=== PATIENT | female | born 1950 | race Caucasian/White ===

== ENCOUNTER 2020-05-15 12:50 | Outpatient (CLI) | payer OTHER, SELFPAY ==
--- NOTE | ~2020-05-15 | DEXA_ITS ---
Bone Density Report Name: Kia Chung Age: 70 Sex: Female Ethnicity: White Date of : 1950 Indication: osteopenia; prior fracture; Referring Provider: ROGELIO RUVALCABA Study: Bone densitometry was performed. Exam Date: May 15, 2020 Accession number: [id number] Bone Density: Region BMD T-score Z-score Classification AP Spine (L1-L4) 0.768 -2.5 -0.3 Osteoporosis Femoral Neck (Left) 0.606 -2.2 -0.3 Osteopenia Total Hip (Left) 0.815 -1.0 0.6 Normal Total Hip Bilateral Avg 0.792 -1.2 0.4 Osteopenia Femoral Neck (Right) 0.581 -2.4 -0.5 Osteopenia Total Hip (Right) 0.768 -1.4 0.2 Osteopenia World Health Organization criteria for BMD impression classify patients as: Normal (T-score at or above -1.0), Osteopenia (T-score between -1.0 and -2.5), or Osteoporosis (T-score at or below -2.5). 10-year Fracture Risk: FRAX not reported because: Some T-score for Spine Total or Hip Total or Femoral Neck at or below -2.5 Previous Exams: Region Exam Age BMD T-score BMD Change BMD Change Date g/cm2 vs Baseline vs Previous AP Spine(L1-L4) 05/15/2020 70 0.768 -2.5 -0.014(-1.8%)# -0.014(-1.8%)# 09/14/2012 62 0.782 -2.4 Total Hip(Left) 05/15/2020 70 0.815 -1.0 -0.091(-10.1%) -0.091(-10.1%) 09/14/2012 62 0.907 -0.3 Total Hip(Right) 05/15/2020 70 0.768 -1.4 -0.039(-4.9%)# -0.039(-4.9%)# 09/14/2012 62 0.808 -1.1 *Denotes significance at 95% confidence level, LSC for AP Spine = 0.022 g/cm2, LSC for Total Hip = 0.027 g/cm2 Clinical Information Provided by Patient: Has had a low trauma fracture Patient maximum height was 59 Menopause Age: 50 No regular weight bearing exercise Drinks caffeinated beverages Onset of menses at age 11 Number of children 3 Impression: The patient has established osteoporosis, based on the Total Spine T-score and the existence of a prior fracture. The patient has risk factors, including: previous fracture. No significant bone loss was observed. Discussion: HIGH RISK OF FRACTURE. BONE DENSITY IS UNDESIRABLY LOW AT ONE OR MORE SKELETAL SITES, CONSISTENT WITH POSTMENOPAUSAL OSTEOPOROSIS. This patient's lowest T-score, in a patient who has previously fractured, meets the World Health Organization's (WHO) criteria for severe osteoporosis. In untreated patients, the risk of osteoporotic fracture increases approximately two-fold for each 1.0 SD decrease in T-score. Low bone density is not the only risk factor for fracture
--- NOTE | ~2020-05-15 | MM_ITS ---
EXAMINATION: MM screening jacek BI w milton HISTORY: Screening mammogram TECHNIQUE: Craniocaudal and mediolateral oblique 3-D tomosynthesis images were obtained and synthetic 2-D images were generated. CAD analysis was submitted and interpreted. COMPARISON: 01/30/2015 bilateral digital screening mammogram BREAST PARENCHYMAL COMPOSITION: There are scattered areas of fibroglandular density. FINDINGS: Subtle new very small irregular opacity in the posterior lower inner quadrant of the left b reast. Diagnostic left mammogram is recommended, with ultrasound if required. Otherwise there is no evidence of suspicious mass, calcification, or architectural distortion to sugg est malignancy in either breast. There has been no other suspicious interval change. IMPRESSION: 1. Subtle small new irregular opacity in the posterior lower inner left breast 2. Diagnostic left mammogram is recommended, with ultrasound if required BI-RADS Category 0: Incomplete: Needs additional imaging evaluation. Reviewed, dictated and finalized at location A. SETTER
== END 2020-05-15 12:51 | disposition home or self-care (01) ==
LOC: ANHIMG 12:53
PROVIDERS: PCP Internal Medicine; Visit Provider Internal Medicine
DX: Z12.31 Encounter for screening mammogram for malignant neoplasm of breast (principal); Z78.0 Asymptomatic menopausal state; R92.8 Other abnormal and inconclusive findings on diagnostic imaging of breast; M85.852 Other specified disorders of bone density and structure, left thigh; M85.851 Other specified disorders of bone density and structure, right thigh
CPT/HCPCS: 77063; 77067; 77080

== ENCOUNTER 2020-06-14 11:11 | Outpatient (CLI) | payer OTHER, SELFPAY ==
--- NOTE | ~2020-06-14 | MMUS_ITS ---
EXAMINATION: MM diagnostic mammo unilat LT, US breast LT limited HISTORY: Follow-up left breast asymmetry TECHNIQUE: Additional 3-D tomosynthesis images of the left breast were performed and synthetic 2-D im ages were generated. CAD analysis was submitted and interpreted. High resolution Limited left breast ultrasound was performed. COMPARISON: Comparison to multiple prior studies sequentially, with oldest reviewed study dated 08/2012. BREAST PARENCHYMAL COMPOSITION: Breast composition is almost entirely fatty. FINDINGS: MAMMOGRAPHIC FINDINGS: There is a stable focal asymmetry in the lower inner quadrant of the left breast which was likely pre sent on prior examinations dating back to 2012. ULTRASOUND: Limited left breast ultrasound: At 9:00 there is a 1 cm lipoma located superficially. At 9:00,, 8 cm from the nipple, there is a 6 mm lipoma. No suspicious masses to suggest malignancy. IMPRESSION: 1. No evidence for malignancy in the left breast. Benign findings. 2. Routine yearly screening mammogram and regular clinical breast examination are recommended. BI-RADS Category 2: Benign finding(s). Reviewed, dictated and finalized at location A. NHOUSE INSTRUCTOR IMPRESSION: 1. No evidence for malignancy in the left breast. Benign findings. 2. Routine yearly screening mammogram and regular clinical breast examination a re recommended. BI-RADS Category 2: Benign finding(s).
== END 2020-06-14 11:12 | disposition home or self-care (01) ==
LOC: ANHIMG 11:20
PROVIDERS: PCP Internal Medicine; Visit Provider Internal Medicine
DX: R92.8 Other abnormal and inconclusive findings on diagnostic imaging of breast (principal)
CPT/HCPCS: 76642; 77065

== ENCOUNTER 2020-10-31 01:26 | Day surgery (SDC) | payer OTHER, SELFPAY ==
[2020-10-17 11:06] VITALS: BMI 33.0
[2020-10-31 06:41] VITALS: BP 144/89; PULSE 100; RESP 20; TEMP 36.3; O2SAT 94
[2020-10-31] MEDS: LACTATED RINGERS 1,000 ML 150 ML IV CONT (06:51)
--- NOTE | 2020-10-31 06:55 | WPDANESEPPF ---
Anes - Initial Pre Proc Eval Procedure: Operation Date: 10/31/20 08:00 Proposed Procedures p Colonoscopy - Parish Cole MD Date/Time: 10/31/20 06:55 Surgeon: Parish Cole MD Pre Op Diagnosis: melena Patient Data Age: 70 Gender: F Height: 1.49 m Weight: 69.4 kg Last Vital Signs Temp 36.3 C L 10/31/20 06:41 Pulse 100 10/31/20 06:41 Resp 20 10/31/20 06:41 BP 144/89 H 10/31/20 06:41 Pulse Ox 94 10/31/20 06:41 Allergies Allergy/AdvReac Type Severity Reaction Status Date / Time chlorpromazine Allergy Unknown Other Verified 10/31/20 06:39 CHLORPROMAZINE HCL AdvReac Unknown CAUSED Uncoded 10/31/20 06:39 CHEMICAL HEPATITIS Home Medications Medication Instructions Recorded Confirmed Type rosuvastatin 20 mg tablet 20 mg PO DAILY #90 tablet 09/23/19 10/17/20 Rx levothyroxine 88 mcg tablet 88 mcg PO DAILY #90 tablet 11/13/19 10/17/20 Rx lisinopril 10 mg tablet 10 mg PO DAILY #90 tablet 12/13/19 10/17/20 Rx clonazepam 0.5 mg tablet 0.5 mg PO TID tablet 12/25/19 10/17/20 History doxepin 10 mg capsule 10 mg PO .bedtime cap 12/25/19 10/17/20 History olanzapine 10 mg tablet 10 mg PO DAILY 12/25/19 10/17/20 History gemfibrozil 600 mg tablet 600 mg PO BID #180 tablet 03/22/20 10/17/20 Rx Patient hx anesthesia problems: none Family hx anesthesia problems: none PMFSH Past Medical History Medical History Benign essential hypertension Bipolar I disorder, most recent episode (or current) manic Hypothyroidism (acquired) Mixed hyperlipidemia Family History Family History Father Acute myocardial infarction Mother Acute myocardial infarction Social History Social History Smoking status: Former smoker Second hand tobacco smoke exposure: No Smoking end date: 04/12/09 Alcohol intake: never Substance use type: does not use Gender identity (if verbalized by the patient): Female Anes - Eval Final PreProcedure Day of Procedure 10/31/20 06:55 Patient weight: obese Heart: regular rate and rhythm Lungs: clear to auscultation Airway: Mallampati scale class II Neurological: other (alert) Last oral intake: >/= 8 hours ASA classification: III Emergent: no Anesthetic plan: proceed Anesthesia type and monitoring: general GIVS and standard monitoring Informed Consent: The patient's anesthetic plan and its attendant risks and benefits were discussed with the patient/family/POA. Questions were solicited and answers provided to the satisfaction of the patient/family/POA.
--- NOTE | 2020-10-31 07:18 | PM.HPGS ---
History of Present Illness History of Present Illness Consent: Risks, benefits, and alternatives have been discussed and questions answered. Patient agrees to proceed with procedure. Chief complaint: melena Narrative: Kia Chung is a 70 year old female who was found to have a positive stool Hemoccult. Review of Systems Review of Systems: All systems reviewed & are unremarkable except as noted in HPI and below PMFSH Past Medical History Medical History Benign essential hypertension Bipolar I disorder, most recent episode (or current) manic Hypothyroidism (acquired) Mixed hyperlipidemia Family History Family History Father Acute myocardial infarction Mother Acute myocardial infarction Social History Social History Smoking status: Former smoker Second hand tobacco smoke exposure: No Smoking end date: 04/12/09 Alcohol intake: never Substance use type: does not use Gender identity (if verbalized by the patient): Female Meds Home Medications and Allergies Home Medications Medication Instructions Recorded Confirmed Type rosuvastatin 20 mg tablet 20 mg PO DAILY #90 tablet 09/23/19 10/17/20 Rx levothyroxine 88 mcg tablet 88 mcg PO DAILY #90 tablet 11/13/19 10/17/20 Rx lisinopril 10 mg tablet 10 mg PO DAILY #90 tablet 12/13/19 10/17/20 Rx clonazepam 0.5 mg tablet 0.5 mg PO TID tablet 12/25/19 10/17/20 History doxepin 10 mg capsule 10 mg PO .bedtime cap 12/25/19 10/17/20 History olanzapine 10 mg tablet 10 mg PO DAILY 12/25/19 10/17/20 History gemfibrozil 600 mg tablet 600 mg PO BID #180 tablet 03/22/20 10/17/20 Rx Allergies Allergy/AdvReac Type Severity Reaction Status Date / Time chlorpromazine Allergy Unknown Other Verified 10/31/20 06:39 CHLORPROMAZINE HCL AdvReac Unknown CAUSED Uncoded 10/31/20 06:39 CHEMICAL HEPATITIS Vital Signs Vital Signs - 24 hr 10/31/20 06:41 Temperature 36.3 C L Pulse Rate 100 Respiratory Rate 20 Blood Pressure 144/89 H Pulse Oximetry 94 Exam Resp: Auscultation: clear to auscultation bilaterally Cardio: Rate: regular rate Rhythm: regular rhythm GI: GI Palp: Yes Soft to palpation and No Tenderness to palpation present (GI) Assessment and Plan Assessment and plan (1) Blood in stool: Code(s): K92.1 - Melena Status: Acute Assessment and Plan: Colonoscopy with possible biopsy or polypectomy or cautery or injection of substances.
[2020-10-31 08:27] VITALS: BP 81/46; PULSE 81; RESP 14; O2SAT 95
[2020-10-31 08:37] VITALS: BP 103/65; PULSE 97; RESP 18; O2SAT 96
[2020-10-31 08:47] VITALS: BP 120/74; PULSE 73; RESP 16; O2SAT 97
== END 2020-10-31 09:00 | disposition home or self-care (01) ==
PROVIDERS: PCP Internal Medicine; Visit Provider Internal Medicine Gastroenterology
PROC: 0DJD8ZZ Inspection of Lower Intestinal Tract, Via Natural or Artificial Opening Endoscopic (ICD-10-PCS; CPT 45378; principal; 2020-10-31 08:00)
DX: R19.5 Other fecal abnormalities (principal); K57.30 Diverticulosis of large intestine without perforation or abscess without bleeding; K63.5 Polyp of colon; K64.8 Other hemorrhoids; I10 Essential (primary) hypertension; E78.2 Mixed hyperlipidemia; E03.9 Hypothyroidism, unspecified; F31.9 Bipolar disorder, unspecified; Z87.891 Personal history of nicotine dependence; E66.9 Obesity, unspecified; Z68.31 Body mass index [BMI] 31.0-31.9, adult
CPT/HCPCS: 45381; 45385; 88305; J2001; J2704; J7120

== ENCOUNTER 2022-08-06 09:31 | Outpatient (CLI) | payer OTHER, SELFPAY ==
--- NOTE | ~2022-08-06 | MM_ITS ---
EXAMINATION: MM screening jacek BI w milton HISTORY: Screening mammogram TECHNIQUE: Craniocaudal and mediolateral oblique 3-D tomosynthesis images were obtained and synthetic 2-D images were generated. CAD analysis was submitted and interpreted. COMPARISON: 06/14/2020 diagnostic left mammogram and limited left breast ultrasound 05/15/2020, 01/30/2015 bilateral screening mammogram examinations BREAST PARENCHYMAL COMPOSITION: The breasts are almost entirely fatty. FINDINGS: Occasional bilateral benign calcifications. Bilateral benign-appearing axillary tail lymph nodes. There is no evidence of suspicious stable mild fibroglandular asymmetry. Mass, calcification, or architectural distortion to suggest malignancy in either breast. There has been no suspicious inte rval change. IMPRESSION: 1. No mammographic evidence of malignancy. 2. Recommend routine screening mammography in one year. BI-RADS Category 2: Benign finding(s). Reviewed, dictated and finalized at location A.
== END 2022-08-06 09:32 | disposition home or self-care (01) ==
LOC: ANHIMG 09:34
PROVIDERS: PCP Family Medicine; Visit Provider Family Medicine
DX: Z12.31 Encounter for screening mammogram for malignant neoplasm of breast (principal)
CPT/HCPCS: 77063; 77067

== ENCOUNTER 2022-08-11 08:07 | Outpatient (CLI) | payer OTHER, SELFPAY ==
[2022-08-11 19:34] LABS: Alanine Aminotransferase 37 U/L (6-35); Alkaline Phosphatase 93 U/L (38-126); Anion Gap 5 mmol/L (8-16); Aspartate Amino Transferase 38 U/L (14-36); Bilirubin,Total 0.6 mg/dL (0.2-1.3); Blood Urea Nitrogen 20 mg/dL (7-17); Calcium 8.9 mg/dL (8.4-10.2); Carbon Dioxide 31 mmol/L (22-30); Chloride 101 mmol/L (98-107); Cholesterol 158 mg/dL (0-200); Estimated Glomerular Filt Rate > 60; Glucose 99 mg/dL (65-110); HDL Direct 35 mg/dL; Potassium 3.9 mmol/L (3.4-5.0); Sodium 137 mmol/L (137-145); Triglycerides 165 mg/dL (<150)
[2022-08-11 19:46] LABS: LDL Cholesterol Direct 87 mg/dL
== END 2022-08-11 08:08 | disposition home or self-care (01) ==
LOC: ANHGOSHLAB 08:09
PROVIDERS: PCP Family Medicine; Visit Provider Family Medicine
DX: E03.9 Hypothyroidism, unspecified (principal); E78.2 Mixed hyperlipidemia; I10 Essential (primary) hypertension
CPT/HCPCS: 36415; 80053; 80061; 84443

== ENCOUNTER 2022-09-11 14:12 | Outpatient (CLI) | payer OTHER, SELFPAY ==
--- NOTE | ~2022-09-11 | DEXA_ITS ---
Bone Density Report Name: BOB ZULETA Age: 72 Sex: Female Ethnicity: White Date of : 1950 Indication: postmenopausal osteoporosis; monitoring treatment; Referring Provider: TEMO MENDOZA Study: Bone densitometry was performed. Exam Date: September 11, 2022 Accession number: [id number] Bone Density: Region BMD T-score Z-score Classification AP Spine(L1-L4) 0.801 -2.2 0.1 Osteopenia Femoral Neck (Left) 0.642 -1.9 0.2 Osteopenia Total Hip (Left) 0.850 -0.8 1.0 Normal Femoral Neck (Right) 0.579 -2.4 -0.4 Osteopenia Total Hip (Right) 0.780 -1.3 0.4 Osteopenia Total Hip Mean 0.815 -1.1 0.7 Osteopenia World Health Organization criteria for BMD impression classify patients as: Normal (T-score at or above -1.0), Osteopenia (T-score between -1.0 and -2.5), or Osteoporosis (T-score at or below -2.5). 10-year Fracture Risk: FRAX not reported because: Treated for osteoporosis Previous Exams: Region Exam Age BMD T-score BMD Change BMD Change Date g/cm2 vs Baseline vs Previous AP Spine (L1-L4) 09/11/2022 72 0.801 -2.2 0.034 (4.4%)* 0.034 (4.4%)* 05/15/2020 70 0.768 -2.5 Total Hip(Left) 09/11/2022 72 0.850 -0.8 0.035 (4.2%)* 0.035 (4.2%)* 05/15/2020 70 0.815 -1.0 Total Hip(Right) 09/11/2022 72 0.780 -1.3 0.011 (1.5%) 0.011 (1.5%) 05/15/2020 70 0.768 -1.4 *Denotes significance at 95% confidence level, LSC for AP Spine = 0.022 g/cm2, LSC for Total Hip = 0.027 g/cm2 Clinical Information Provided by Patient: Is being treated for osteoporosis Has used the following medications: Fosamax (i.e. alendronate) Patient maximum height was 59 Menopause Age: 50 No regular weight bearing exercise Drinks caffeinated beverages Onset of menses at age 11 Number of children 3 Impression: The patient has low bone mass, based on the Right Femoral Neck T-score. No significant bone loss was observed. Discussion: PATIENT UNDER TREATMENT WITH NO SIGNIFICANT BMD LOSS SINCE LAST EXAM. In an untreated patient, BMD typically declines with age. A lack of decline or gain is usually a sign that treatment is efficacious and fracture risk is reduced. It is important to ask patients whether they are taking their medications and to encourage continued and appropriate compliance with their osteoporosis therapies to reduce fracture risk. It is also important to review their risk factors and encourage appropriate calcium and vitamin D intakes, exerci
== END 2022-09-11 14:13 | disposition home or self-care (01) ==
LOC: ANHIMG 14:13
PROVIDERS: PCP Family Medicine; Visit Provider Family Medicine
DX: M81.0 Age-related osteoporosis without current pathological fracture (principal); M85.88 Other specified disorders of bone density and structure, other site; M85.852 Other specified disorders of bone density and structure, left thigh; M85.851 Other specified disorders of bone density and structure, right thigh
CPT/HCPCS: 77080

== ENCOUNTER 2023-10-11 14:46 | Outpatient (CLI) | payer OTHER, SELFPAY ==
--- NOTE | ~2023-10-11 | MM_ITS ---
EXAMINATION: MM screening jacek BI w milton HISTORY: Screening mammogram TECHNIQUE: Craniocaudal and mediolateral oblique 3-D tomosynthesis images were obtained and synthetic 2-D images were generated. CAD analysis was submitted and interpreted. COMPARISON: 08/06/2022, 05/15/2020 BREAST PARENCHYMAL COMPOSITION:Not Dense. The breasts are almost entirely fatty FINDINGS: No suspicious mass, calcification, or architectural distortion are identified in either marty ast to suggest malignancy. There has been no suspicious interval change. IMPRESSION: No mammographic evidence of malignancy. Recommend routine screening mammography in one year. BI-RADS Category 1: Negative Reviewed, dictated and finalized at location .
== END 2023-10-11 14:47 | disposition home or self-care (01) ==
LOC: ANHIMG 14:47
PROVIDERS: PCP Family Medicine; Visit Provider Family Medicine
DX: Z12.31 Encounter for screening mammogram for malignant neoplasm of breast (principal)
CPT/HCPCS: 77063; 77067

== ENCOUNTER 2023-11-15 07:59 | Outpatient (CLI) | payer OTHER, SELFPAY ==
[2023-11-15 11:50] LABS: Alanine Aminotransferase 59 U/L (6-35); Albumin Level 3.9 g/dL (3.5-5.1); Alkaline Phosphatase 156 U/L (38-126); Anion Gap 11 mmol/L (4-12); Aspartate Amino Transferase 53 U/L (14-36); Bilirubin,Total 0.4 mg/dL (0.2-1.3); Blood Urea Nitrogen 13 mg/dL (7-17); Calcium 9.2 mg/dL (8.4-10.2); Carbon Dioxide 29 mmol/L (22-30); Chloride 100 mmol/L (98-107); Cholesterol 168 mg/dL (0-200); Estimated Glomerular Filt Rate > 60; Glucose 101 mg/dL (65-110); HDL Direct 40 mg/dL; Potassium 3.1 mmol/L (3.4-5.0); Sodium 140 mmol/L (137-145); Triglycerides 188 mg/dL (<150)
[2023-11-15 12:01] LABS: LDL Cholesterol Direct 97 mg/dL
[2023-11-15 12:23] LABS: Free T4 Free Thyroxine 0.99 ng/mL (0.78-2.19)
== END 2023-11-15 08:00 | disposition home or self-care (01) ==
LOC: ANHGOSHLAB 08:01
PROVIDERS: PCP Family Medicine; Visit Provider Family Medicine
DX: E66.09 Other obesity due to excess calories (principal); Z13.220 Encounter for screening for lipoid disorders; Z13.228 Encounter for screening for other metabolic disorders; Z68.32 Body mass index [BMI] 32.0-32.9, adult; R73.09 Other abnormal glucose; E03.9 Hypothyroidism, unspecified
CPT/HCPCS: 36415; 80053; 80061; 83036; 84439; 84443

== ENCOUNTER 2023-12-17 09:38 | Outpatient (CLI) | payer OTHER, SELFPAY ==
[2023-12-17 15:17] LABS: Anion Gap 8 mmol/L (4-12); Blood Urea Nitrogen 16 mg/dL (7-17); Calcium 8.9 mg/dL (8.4-10.2); Carbon Dioxide 27 mmol/L (22-30); Chloride 103 mmol/L (98-107); Estimated Glomerular Filt Rate > 60; Glucose 121 mg/dL (65-110); Potassium 4.3 mmol/L (3.4-5.0); Sodium 138 mmol/L (137-145)
== END 2023-12-17 09:39 | disposition home or self-care (01) ==
LOC: ANHGOSHLAB 09:39
PROVIDERS: PCP Family Medicine; Visit Provider Family Medicine
DX: Z13.228 Encounter for screening for other metabolic disorders (principal)
CPT/HCPCS: 36415; 80048

== ENCOUNTER 2024-03-28 11:08 | Outpatient (CLI) | payer OTHER, SELFPAY ==
[2024-03-28 13:58] LABS: Alanine Aminotransferase 81 U/L (6-35); Alkaline Phosphatase 215 U/L (38-126); Anion Gap 4 mmol/L (4-12); Aspartate Amino Transferase 70 U/L (14-36); Bilirubin,Total 0.6 mg/dL (0.2-1.3); Blood Urea Nitrogen 16 mg/dL (7-17); Calcium 9.3 mg/dL (8.4-10.2); Carbon Dioxide 31 mmol/L (22-30); Chloride 102 mmol/L (98-107); Estimated Glomerular Filt Rate > 60; Glucose 133 mg/dL (65-110); Potassium 3.7 mmol/L (3.4-5.0); Sodium 137 mmol/L (137-145)
== END 2024-03-28 11:09 | disposition home or self-care (01) ==
LOC: ANHGOSHLAB 11:09
PROVIDERS: PCP Family Medicine; Visit Provider Family Medicine
DX: Z13.228 Encounter for screening for other metabolic disorders (principal)
CPT/HCPCS: 36415; 80053

== ENCOUNTER 2024-03-29 10:43 | Outpatient (CLI) | payer OTHER, SELFPAY ==
[2024-03-30 07:47] LABS: GGT 129 U/L (3-65)
== END 2024-03-29 10:44 | disposition home or self-care (01) ==
LOC: ANHGOSHLAB 10:44
PROVIDERS: PCP Family Medicine; Visit Provider Family Medicine
DX: R74.01 Elevation of levels of liver transaminase levels (principal)
CPT/HCPCS: 36415; 82977

== ENCOUNTER 2024-04-14 08:11 | Outpatient (CLI) | payer OTHER, SELFPAY ==
--- NOTE | ~2024-04-14 | US_ITS ---
EXAMINATION: US abdomen limited DATE: 04/14/2024 09:02 INDICATION: Elevated levels of liver transaminase levels TECHNIQUE: Multiple grayscale and Doppler ultrasound images of the abdomen were obtained. COMPARISON: None FINDINGS: The pancreatic head and body are normal in appearance. The pancreatic tail is not visualized. Proxim al aorta and inferior vena cava are normal. Liver has normal echogenicity and contour, with a smooth surface. No liver lesion identified. No intrahepatic biliary duct dilation suspected. Portal venous f low was seen in the hepatopetal, normal direction and has normal Doppler waveform. There are 2 large hyperechoic and shadowing gallstones in the otherwise normal-appearing gallbladder. Common bile duct measures 3 mm diameter which is normal. Sonographic Freedman sign was reported as negative by the sonog rapher. IMPRESSION: 1. Cholelithiasis without findings of acute cholecystitis nor intra/extrahepatic biliary ductal dilat ion. Reviewed, dictated and finalized at location B. GER GYN IMPRESSION: 1. Cholelithiasis without findings of acute cholecystitis nor intra/extrahepati c biliary ductal dilation.
== END 2024-04-14 08:12 | disposition home or self-care (01) ==
PROVIDERS: PCP Family Medicine; Visit Provider Family Medicine
DX: R74.01 Elevation of levels of liver transaminase levels (principal); K80.20 Calculus of gallbladder without cholecystitis without obstruction
CPT/HCPCS: 76705

== ENCOUNTER 2024-04-17 20:10 | Observation (INO) | payer OTHER, SELFPAY ==
--- NOTE | ~2024-04-17 | XR_ITS ---
CHEST RADIOGRAPH CLINICAL HISTORY: Weakness . COMPARISON: None available TECHNIQUE: Single portable view of the chest. FINDINGS The cardiomediastinal silhouette is unremarkable. Increased interstitial markings are identified bilaterally, findings suggesting mild pulmonary vascul ar congestion. The lungs are otherwise clear. Visualized osseous structures and soft tissues are unremarkable. IMPRESSION: Mild pulmonary vascular congestion, without focal infiltrate or effusion. Reviewed, dictated and finalized at location A. MIDWIFE
--- NOTE | ~2024-04-17 | CT_ITS ---
History: Blunt trauma PROCEDURE: CT cervical spine without intravenous contrast. COMPARISON: None TECHNIQUE: Multiple contiguous axial images of the cervical spine were performed without the administration of i ntravenous contrast. DLP: 484 mGy-cm FINDINGS: Straightening and slight reversal of the normal curvature of the cervical spine is identified, likely muscular in origin. No acute fractures are present. Severe degenerative disease is identified within the cervical spine with osteophyte formation, disc s pace narrowing, facet arthropathy and endplate changes. 9 mm soft tissue attenuation nodule within the right middle lobe, incompletely evaluated on the curre nt study for which noncontrast CT examination of the chest is recommended for further evaluation. The remainder of the visualized portions of the bilateral upper lung perla are unremarkable. No soft tissue abnormality is present. The airway is patent. Impression: Straightening and slight reversal of the normal curvature of the cervical spine, likely muscular in o rigin. Degenerative disease without acute fracture. 9 mm soft tissue attenuation nodule within the right middle lobe, incompletely evaluated on the curre nt study for which noncontrast CT examination of the chest is recommended for further evaluation. Reviewed, dictated and finalized at location A. TEGIC ADVISOR Impression: Straightening and slight reversal of the normal curvature of the cervical spine , likely muscular in origin. Degenerative disease without acute fracture. 9 mm soft tissue attenuation nodule within the right middle lobe, incompletely evaluated on the current study for which noncontrast CT examination of the ches t is recommended for further evaluation.
--- NOTE | ~2024-04-17 | CT_ITS ---
CT Scan of the Chest without Contrast: Clinical Indication: Pulmonary nodule Technique: Contiguous sections were acquired throughout the chest without intravenous contrast. Dose reduction technique was used on this scan by utilizing automated exposure control and iterative recon struction technique. The dose-length product (DLP) was 286.49 mGy-cm. Findings: There is no evidence of any significant mediastinal, hilar or axillary lymphadenopathy. The mediastin al soft tissues appear normal. There is no evidence of pleural or pericardial effusion. There is a 12 mm peripheral right upper lobe pulmonary nodule (axial image 47). There are several tin y 1-2 mm peripheral right upper lobe pulmonary nodules. Images through the upper abdomen reveal cholelithiasis. Impression: 12 mm right upper lobe pulmonary nodule, indeterminate. Early neoplasm not excluded. Consider PET/CT or tissue sampling for further evaluation, versus short-term follow-up CT in 1-3 months. Comparison w ith any prior outside chest CTs to assess for chronicity of this nodule would be extremely useful, if available. Reviewed, dictated and finalized at location . ANGE TROUBLE SHOOTER Impression: 12 mm right upper lobe pulmonary nodule, indeterminate. Early neoplasm not excl uded. Consider PET/CT or tissue sampling for further evaluation, versus short-t erm follow-up CT in 1-3 months. Comparison with any prior outside chest CTs to assess for chronicity of this nodule would be extremely useful, if available.
--- NOTE | ~2024-04-17 | CT_ITS ---
History: Blunt trauma PROCEDURE: CT head without contrast. COMPARISON: None TECHNIQUE: Axial imaging of the head performed from the skull base to the vertex without IV contrast. Sagittal a nd coronal reformations obtained. DLP: 605 mGy-cm FINDINGS: The ventricles are enlarged. The dilatation of the ventricles is proportional to the degree of sulcal prominence, not uncommon in the senescent brain. Decreased attenuation is identified within the periventricular white matter, likely secondary to micr ovascular ischemic disease, in a patient of this age. There is no mass, mass effect or midline shift. There is no abnormal extra-axial fluid collection or intracranial hemorrhage. Visualized paranasal sinuses are clear. The mastoid air cells are well aerated. No acute displaced fractures within the overlying cranium. Impression: No acute intracranial hemorrhage or suspicious mass effect. Reviewed, dictated and finalized at location A. NILE OFFICER Impression: No acute intracranial hemorrhage or suspicious mass effect.
[2024-04-17 20:26] VITALS: BP 143/80; PULSE 104; RESP 17; TEMP 36.4; O2SAT 97
--- NOTE | 2024-04-17 20:32 | ECG_ITS ---
Test Date: 2024-04-18 02:16:27 Measurements Intervals [place] Rate: 97 P: 23 AR: 190 QRS: -54 QRSD: 104 T: 119 QT: 381 QTc: 485 Interpretive Statements SINUS RHYTHM LEFT ANTERIOR FASCICULAR BLOCK [QRS AXIS <= -45, QR IN I, RS IN II] MODERATE T-WAVE ABNORMALITY, CONSIDER LATERAL ISCHEMIA [-0.1+ mV T-WAVE IN I/aVL/V5/V6] No previous ECG available for comparison Electronically Signed On 04-19-2024 17:21:31 STEM ROLLER OPERATOR by Earle Jefferson M.D.
[2024-04-17 22:46] VITALS: BP 158/80; PULSE 92; RESP 15; O2SAT 98
[2024-04-17 23:30] LABS: Basophils Percent Auto 0.2 % (0.2-1.2); Eosinophils Percent Auto 0.3 % (0-4.4); Hematocrit 41.3 % (37.0-47.0); Hemoglobin 14.6 g/dL (12.0-15.0); Immature Granulocyte Absolute 0.05 K/mm3 (0.00-0.031); Immature Granulocyte Percent A 0.4 % (0-0.5); Lymphocytes Absolute Auto 1.78 K/mm3 (0.9-3.2); Lymphocytes Percent Auto 14.4 % (18.3-44.2); Mean Corpuscular HGB Conc 35.4 g/dl (32-36); Mean Corpuscular Hemoglobin 30.3 pg (26-34); Mean Corpuscular Volume 85.7 fl (80-100); Mean Platelet Volume 11.9 fl (7.4-10.4); Monocytes Percent Auto 7.8 % (2.6-8.5); Neutrophils Absolute Auto 9.5 K/mm3 (1.3-6.7); Neutrophils Percent Auto 76.9 % (45.5-73.1); Platelet Count Result 280 k/mm3 (150-375); Red Blood Count 4.82 M/mm3 (4.2-5.4); White Blood Count 12.4 K/mm3 (4.5-10.0)
--- NOTE | 2024-04-17 23:32 | ED.GENADULT ---
HPI - General Adult General Chief complaint: Altered Mental Status Stated complaint: Possible Overdose Time Seen by Provider: 04/17/24 22:42 History of Present Illness HPI narrative: Patient is a 73-year-old female who presents emergency department with chief complaint of possible overdose. 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 Patient reports that she has had multiple falls and EMS has been out of her house multiple times and police have been out of her house multiple times per the family the patient has had overdoses before in the past and report that when she is suicidal the patient will usually express thoughts of harming herself and the vocal about at patient today denies any suicidal thoughts reports he was just trying to get some sleep Related Data Home Medications ?Medication ?Instructions ?Recorded ?Confirmed ?Last Taken ?Type clonazepam 0.5 mg tablet (Klonopin) 0.5 mg PO TID 12/25/19 03/28/24 10/30/20 History olanzapine 10 mg tablet 10 mg PO DAILY 12/25/19 03/28/24 10/30/20 History buspirone 10 mg tablet 10 mg PO BID 09/24/23 03/28/24 Unknown History trazodone 50 mg tablet 25 mg PO QHS PRN 03/28/24 03/28/24 Unknown History Allergies Allergy/AdvReac Type Severity Reaction Status Date / Time CHLORPROMAZINE HCL AdvReac Unknown CAUSED Uncoded 03/28/24 11:12 CHEMICAL HEPATITIS Review of Systems Review of Systems: A 10 system review of systems was completed on the patient and is negative except for what is stated in the HPI. Nursing and ancillary documentation was reviewed. FORMERLY [facility], [facility] Past Medical History Medical History Transaminitis Benign essential hypertension Bipolar I disorder, most recent episode (or current) manic Hypothyroidism (acquired) Mixed hyperlipidemia Family History Family History Father Acute myocardial infarction Mother Acute myocardial infarction Social History Social History Social History: Caffeine-half calf coffee Smoking status: Former smoker Second hand tobacco smoke exposure: No Smoking end date: 04/12/09 Alcohol intake: never Substance use: never Substance use type: does not use Lack of Transportation: No Lack of Food: Never True Current Housing: I Have Housing Concerned About Future Housing: No Difficulty Paying Gas/Electric Bills: No Difficulty Paying for Meds: No Currently Unemployed: No Education: Decline to Answer Difficulty w/ Childcare or Family Care: No Gender identity (if verbalized by the patient): Female Exam Narrative: GENERAL: Well-appearing, well-nourished, and in no acute distress. HEAD: Normocephalic, atraumatic. EYES: PERRLA and EOMI. ENT: Nares clear, no rhinorrhea or epistaxis. Mucous membranes moist. NECK: Supple. CHEST: Clear to auscultation. No respiratory distress. HEART: Regular rate and rhythm. No murmur heard. Normal peripheral pulses. ABDOMEN: Soft, nontender, nondistended, normal active bowel sounds. EXTREMITIES: Normal range of motion. No edema. SKIN: Warm, dry, no rash. NEURO: No focal deficits. Alert and oriented x3. Unsteady on her gait PSYCH: Normal mood and affect. Course Vital Signs Vital signs: Vital Signs Temperature 36.4 C 04/17/24 20:26 Pulse Rate 104 H 04/17/24 20:26 Respiratory Rate 17 04/17/24 20:26 Blood Pressure 143/80 H 04/17/24 20:26 Pulse Oximetry 97 04/17/24 20:26 Oxygen Delivery Room Air 04/17/24 20:26 Temperature 36.4 C 04/17/24 20:26 Pulse Rate 92 04/17/24 22:46 Respiratory Rate 15 04/17/24 22:46 Blood Pressure 158/80 H 04/17/24 22:46 Pulse Oximetry 98 04/17/24 22:46 Oxygen Delivery Room Air 04/17/24 20:26 Medical Decision Making Vital Signs Vital Signs: Vital Signs Temperature 36.4 C 04/17/24 20:26 Pulse Rate 104 H 04/17/24 20:26 Respiratory Rate 17 04/17/24 20:26 Blood Pressure 143/80 H 04/17/24 20:26 Pulse Oximetry 97 04/17/24 20:26 Oxygen Delivery Room Air 04/17/24 20:26 Temperature 36.4 C 04/17/24 20:26 Pulse Rate 92 04/17/24 22:46 Respiratory Rate 15 04/17/24 22:46 Blood Pressure 158/80 H 04/17/24 22:46 Pulse Oximetry 98 04/17/24 22:46 Oxygen Delivery Room Air 04/17/24 20:26 Lab Data 04/17/24 23:13 04/17/24 23:13 Labs: Lab Results 04/17/24 Range/Units 23:13 WBC 12.4 H (4.5-10.0) K/mm3 RBC 4.82 (4.2-5.4) M/mm3 Hgb 14.6 (12.0-15.0) g/dL Hct 41.3 (37.0-47.0) % MCV 85.7 (80-100) fl MCH 30.3 (26-34) pg MCHC 35.4 (32-36) g/dl RDW 13.0 (11.5-14.5) % Plt Count 280 (150-375) k/mm3 MPV 11.9 H (7.4-10.4) fl Immature Gran % (Auto) 0.4 (0-0.5) % Neut % (Auto) 76.9 H (45.5-73.1) % Lymph % (Auto) 14.4 L (18.3-44.2) % Bucks % (Auto) 7.8 (2.6-8.5) % Eos % (Auto) 0.3 (0-4.4) % Baso % (Auto) 0.2 (0.2-1.2) % Lymph # (Auto) 1.78 (0.9-3.2) K/mm3 Bucks # (Auto) 1.0 H (0.1-0.6) K/mm3 Eos # (Auto) 0.0 (0-0.3) K/mm3 Baso # (Auto) 0.0 (0.0-0.1) K/mm3 Abs Immat Gran (auto) 0.05 H (0.00-0.031) K/mm3 Absolute Neuts (auto) 9.5 H (1.3-6.7) K/mm3 Absolute Nucleated RBC 0.000 (0.0-0.012) K/mm3 Nucleated RBC % 0.0 (0.0-0.2) % PT 13.6 (11.1-14.7) Seconds INR 1.0 APTT 26.3 (22.3-36.8) Seconds Sodium 137 (137-145) mmol/L Potassium 3.0 L (3.4-5.0) mmol/L Chloride 103 (98-107) mmol/L Carbon Dioxide 28 (22-30) mmol/L Anion Gap 6 (4-12) mmol/L BUN 12 (7-17) mg/dL Creatinine 0.65 L (0.7-1.0) mg/dL Estim Creat Clear Calc Not Reportable Estimated GFR > 60 (59 - ) Glucose 110 (65-110) mg/dL Lactic Acid 1.3 (0.7-2.0) mmol/L Calcium 9.3 (8.4-10.2) mg/dL Magnesium 2.0 (1.6-2.3) mg/dL Total Bilirubin 0.6 (0.2-1.3) mg/dL AST 41 H (14-36) U/L ALT 48 H (6-35) U/L Alkaline Phosphatase 206 H (38-126) U/L Ammonia < 9 L (9-30) umol/L Troponin I 0.140 H* (0.000-0.034) ng/mL Total Protein 7.0 (6.3-8.2) g/dL Albumin 3.8 (3.5-5.1) g/dL Lipase 35 (23-300) U/L Procalcitonin 0.1 ng/mL TSH 0.200 L (0.465-4.680) uIU/mL Urine Color Yellow (Yellow) Urine Appearance Clear (Clear) Urine pH 6.0 (5.0-9.0) Ur Specific [place] 1.009 (1.001-1.035) Urine Protein 1+ H (Negative) mg/dL Urine Glucose (UA) Negative (Negative) mg/dL Urine Ketones Negative (Negative) mg/dL Ur Blood (Man) Trace (Negative) Urine Nitrate Negative (Negative) Urine Bilirubin Negative (Negative) Urine Urobilinogen 1.0 (<2.0) mg/dL Leukocyte Esterase Rfl Negative (Negative) SARA/UL Urine RBC 0-2 (0-2) /hpf Urine WBC 0-5 (0-3) /hpf Ur Squamous Epith Cells None seen (Few) /hpf Urine Bacteria None seen /hpf Urine Casts 0-2 Salicylates < 1.0 L (2-20) mg/dL Urine Opiates Screen Negative (Negative) Urine Methadone Screen Negative (Negative) Acetaminophen < 10 L (10-30) ug/mL Ur Barbiturates Screen Negative (Negative) Ur Phencyclidine Scrn Negative (Negative) Ur Amphetamine Screen Negative (Negative) U Benzodiazepines Scrn Negative (Negative) Urine Cocaine Screen Negative (Negative) U Cannabinoids Screen Negative (Negative) Ethyl Alcohol < 10 (<10) mg/dL Influenza A (RT-PCR) Negative (Negative) Influenza B (RT-PCR) Negative (Negative) RSV (RT-PCR) Negative (Negative) SARS-CoV-2 RNA (RT-PCR) Negative (Negative) Critical Care Time Critical Care Time Critical Care Time: Yes Total Critical Care Time: 30 Discharge Plan Discharge Clinical Impression: Falls frequently, Accidental overdose, Elevated troponin Patient Disposition: Still a Patient Condition: Stable Patient Language: Latvian Prescriptions: No Action trazodone 50 mg tablet 25 mg PO QHS PRN clonazepam [Klonopin] 0.5 mg tablet 0.5 mg PO TID olanzapine 10 mg tablet 10 mg PO DAILY buspirone 10 mg tablet 10 mg PO BID rosuvastatin 20 mg tablet 20 mg PO DAILY Qty: 90 1RF lisinopril 10 mg tablet 10 mg PO DAILY Qty: 90 1RF levothyroxine 88 mcg tablet 88 mcg PO DAILY Qty: 90 1RF Follow-up/Referrals: Flaco Berg DO [Primary Care Provider] - Time of Disposition: 02:24
[2024-04-17 23:35] LABS: Add Urine Microscopic? YES; Appearance Urine Clear (Clear); Bacteria Urine None Seen /hpf; Bilirubin Urine Negative (Negative); Blood Urine Trace (Negative); Color Urine Yellow (Yellow); Glucose Urine UA Negative (Negative); Ketones Urine Negative (Negative); Leukocyte Esterase Ur Negative LEU/UL (Negative); Nitrate Urine Negative (Negative); Non Pathogenic Casts 0-2; Protein Urine 1+ mg/dL (Negative); RBC Urine 0-2 /hpf (0-2); Specific Grav Ur 1.009 (1.001-1.035); Squamous Epithelial Cell Urine None Seen /hpf (Few); WBC Urine 0-5 /hpf (0-3)
[2024-04-17 23:39] LABS: Acetaminophen < 10 ug/mL (10-30); Ammonia < 9 umol/L (9-30); Ethanol < 10 mg/dL (<10); Lactic Acid Reflex 1.3 mmol/L (0.7-2.0); Salicylate < 1.0 mg/dL (2-20)
[2024-04-17 23:40] LABS: Alanine Aminotransferase 48 U/L (6-35); Albumin Level 3.8 g/dL (3.5-5.1); Alkaline Phosphatase 206 U/L (38-126); Anion Gap 6 mmol/L (4-12); Aspartate Amino Transferase 41 U/L (14-36); Bilirubin,Total 0.6 mg/dL (0.2-1.3); Blood Urea Nitrogen 12 mg/dL (7-17); Calcium 9.3 mg/dL (8.4-10.2); Carbon Dioxide 28 mmol/L (22-30); Chloride 103 mmol/L (98-107); Estimated Glomerular Filt Rate > 60; Glucose 110 mg/dL (65-110); Lipase 35 U/L (23-300); Sodium 137 mmol/L (137-145)
[2024-04-17 23:42] LABS: Prothrombin Time 13.6 Seconds (11.1-14.7)
[2024-04-17 23:43] LABS: Partial Thromboplastin Time 26.3 Seconds (22.3-36.8)
[2024-04-17 23:49] LABS: Amphetamine Screen Urine Negative (Negative); Barbiturate Screen Urine Negative (Negative); Benzodiazepines Screen Urine Negative (Negative); Cannabinoid Screen Urine Negative (Negative); Cocaine Screen Urine Negative (Negative); Methadone Screen Urine Negative (Negative); Opiate Screen Urine Negative (Negative); Phencyclidine Screen Urine Negative (Negative)
[2024-04-18] VITALS (16 sets, daily range): BP systolic 97–170; BP diastolic 50–79; PULSE 69–110; RESP 14–24; TEMP 36.3–37.3; O2SAT 93–100; BMI 26.1
[2024-04-18 00:06] LABS: Influenza A QL RT-PCR Negative (Negative); Influenza B QL RT-PCR Negative (Negative); RSV RNA, RT-PCR Negative (Negative); SARS-CoV-2 RNA PCR Negative (Negative)
[2024-04-18 00:28] LABS: Procalcitonin 0.1 ng/mL
[2024-04-18] MEDS: ASPIRIN 81 MG CHEWABLE TABLET 324 MG PO (01:39)
[2024-04-18 02:49] LABS: Troponin I 0.141 ng/mL (0.000-0.034)
--- NOTE | 2024-04-18 03:37 | ADMGEN ---
This patient, Kia Chung, was admitted to IMU Room 232-01 at 0336. Patient/family oriented to hospital policies and general routines including ID bracelet, bed and alarms, visiting hours, pain management, procedures, bathroom and other care routines, personal items, smoking policy, room service/diet, and visiting hours. Information on how to activate the Rapid Response Team has been discussed. Patient/Family are encouraged to report perceived risks to care and to ask questions if they do not understand what they are told or what they should do.
--- NOTE | 2024-04-18 07:11 | PC.NURSE ---
daughterMelissa, advised this RN during admission that the patient runs out of her medications before refills are due and will then stay awake for days. Patient is always up and moving at home, drinks a lot of coffee from morning through night. Patient continued to ask and try to get up from the bed every few minutes during the admit process. Although oriented now, patient is very impulsive and a high fall risk having frequent falls recently - patient lives alone and is normally independent with ambulation. Patient's daughter is POA but may be unreliable to get ahold of. Gloria Torres's information was added to the chart for contact. Patient has a history of suicide attempt, the patient's mother and the patient's other daughter also committed suicide.
[2024-04-18] MEDS: ASPIRIN 81 MG CHEWABLE TABLET PO (08:54)
[2024-04-18 09:14] LABS: Creatine Kinase 421 U/L (30-135)
[2024-04-18 09:24] LABS: Troponin I 0.123 ng/mL (0.000-0.034)
--- NOTE | 2024-04-18 13:30 | P.HP_ITS ---
H&P: HPI History of Present Illness Date/Time: 04/18/24 13:30 Chief Complaint: altered mental status Narrative: Interval history: This is a 73-year-old female with a significant past medical history of hypothyroidism, hyperlipidemia, bipolar 1 disorder, hypertension, transaminitis, former smoker who presented today for evaluation of altered mental status. Patient is unsure how much of her Klonopin that she took but she did report taking 7 Benadryl to help her sleep. Patient reported that she took her Klonopin and some Benadryl last night to help her sleep. Granddaughter is at the bedside and reported that the neighbor called her and notified her of the patient falling. She was reported in the ED to have multiple falls where EMS was called out to the house multiple times and please has also been called out to the house multiple times due to overdoses in the past. She has history of suicidal tendencies however this time she reports that she did denies any suicidal thoughts and was just trying to get some sleep. Granddaughter states that is common for her to over abuse her medications and runs out about 2 weeks before the refill is due. She is followed by FLORA Espinoza over at [place]. Patient has her Daughter as her POA who is not present currently. Patient is alert and oriented x4 and able to state she wants to be DNR status. She does not have any suicidal thoughts or ideations at this time. She states she was just trying to get some sleep as she is chronically depressed. According to the grand daughter, the patient wants to sleep all the time and only wakes up to take more medications. Workup in the hospital included a head CT which was negative for any acute intracranial hemorrhage. Cervical spine CT showed straightening and slight reversal of the normal curvature of the cervical spine, degenerative disc without acute fracture, 9 mm soft tissue attenuation nodule within the right middle lobe. Chest CT showed 12 mm right upper lobe pulmonary nodule in determine with recommendations for PET/ CT or tissue sampling for further evaluation verses short-term follow-up CT in 1-3 months. Initial labs revealed a white blood cell count of 12.4, INR 1.0, potassium 3.0, creatinine 0.65, lactic acid was normal at 1.3, liver enzymes showed an AST of 41, ALT of 48, alk phos 206, ammonia level was less than 9, total creatinine kinase 421, troponin 0.140> 0.141> 0.123, TSH 0.200. UA was obtained and showed 1+ urine protein, otherwise negative. Urine drug screen was negative. Respiratory panel was negative. EKG showed sinus rhythm with left anterior fascicular block with a rate of 97, QTC 485. Patient was given aspirin in the ED. Review of Systems Review of Systems: All systems reviewed & are unremarkable except as noted in HPI and below Constitutional: Constitutional: Reports as per HPI and Reports no additional constitutional complaints Eyes: Eyes: Reports as per HPI and Reports no additional eye complaints ENT: Reports system reviewed and no additional complaints, except as documented and Reports as per HPI Cardiovascular: Cardiovascular: Reports as per HPI and Reports no additional cardiovascular complaints Respiratory: Respiratory: Reports as per HPI and Reports no additional respiratory complaints Gastrointestinal: Gastrointestinal: Reports as per HPI and Reports no additional gastrointestinal complaints Genitourinary: Genitourinary: Reports no additional female genitourinary complaints and Reports as per HPI Musculoskeletal: Musculoskeletal: Reports no additional musculoskeletal complaints and Reports as per HPI Integumentary/Breasts: Skin/Breast: Reports system reviewed and no additional complaints, except as docu and Reports as per HPI Neurologic: Reports system reviewed and no additional complaints, except as documented and Reports as per HPI Psychiatric: Psychiatric: Reports no additional psychiatric complaints and Reports as per HPI PMFSH Past Medical History Medical History Transaminitis Benign essential hypertension Bipolar I disorder, most recent episode (or current) manic Hypothyroidism (acquired) Mixed hyperlipidemia Family History Family History Father Acute myocardial infarction Mother Acute myocardial infarction Suicide Daughter Suicide Social History Social History Social History: Caffeine-half calf coffee Smoking status: Former smoker Second hand tobacco smoke exposure: No Smoking end date: 04/12/09 Alcohol intake: never Substance use: never Substance use type: does not use Do You Feel Safe in your Home?: Yes Lack of Transportation: No Lack of Food: Never True Current Housing: I Have Housing Concerned About Future Housing: No Difficulty Paying Gas/Electric Bills: No Difficulty Paying for Meds: No Currently Unemployed: No Education: High School Diploma/GED Difficulty w/ Childcare or Family Care: No Gender identity (if verbalized by the patient): Female Spiritual care concerns: No Meds Home Medications and Allergies Home Medications ?Medication ?Instructions ?Recorded ?Confirmed ?Type clonazepam 0.5 mg tablet (Klonopin) 0.5 mg PO TID PRN anxiety 12/25/19 04/18/24 History olanzapine 10 mg tablet 10 mg PO HS 12/25/19 04/18/24 History buspirone 10 mg tablet 15 mg PO BID 09/24/23 04/18/24 History rosuvastatin 20 mg tablet 20 mg PO DAILY #90 tabs 10/29/23 04/18/24 Rx lisinopril 10 mg tablet 10 mg PO DAILY #90 tabs 12/31/23 04/18/24 Rx trazodone 50 mg tablet 25 mg PO QHS PRN insomnia 03/28/24 04/18/24 History levothyroxine 88 mcg tablet 88 mcg PO DAILY #90 tabs 04/13/24 04/18/24 Rx Allergies Allergy/AdvReac Type Severity Reaction Status Date / Time chlorpromazine (From Allergy Severe Other Verified 04/18/24 08:56 Thorazine) Vital Signs Vital Signs - 24 hr 04/17/24 20:26 04/17/24 22:46 04/18/24 03:03 Temperature 97.6 F Pulse Rate 104 H 92 69 Respiratory Rate 17 15 16 Blood Pressure 143/80 H 158/80 H 170/70 H Pulse Oximetry 97 98 97 Oxygen Delivery Room Air 04/18/24 03:57 04/18/24 04:00 04/18/24 04:00 Temperature 97.4 F L Pulse Rate 95 97 Respiratory Rate 18 Blood Pressure 146/79 H Pulse Oximetry 94 Oxygen Delivery Room Air 04/18/24 06:00 04/18/24 08:00 04/18/24 08:00 Temperature Pulse Rate 90 102 H 98 Respiratory Rate 18 Blood Pressure Pulse Oximetry 94 Oxygen Delivery Room Air 04/18/24 08:46 04/18/24 10:00 04/18/24 11:38 Temperature 98.8 F 99.1 F Pulse Rate 102 H 103 H 108 H Respiratory Rate 18 18 Blood Pressure 97/50 L 120/50 L Pulse Oximetry 94 94 Oxygen Delivery 04/18/24 12:00 04/18/24 12:00 Temperature Pulse Rate 108 H 110 H Respiratory Rate 18 Blood Pressure Pulse Oximetry 94 Oxygen Delivery Room Air Exam Narrative: General: In no acute distress, well nourished Head: atraumatic, no encephalopathy Eyes: PERRLA, sclera clear ENT: moist mucous membranes, nasal passages clear Neck: supple, no JVD, no adenopathy, trachea midline Cardiac: Normal S1 and S2. Murmur noted. No gallops or friction rubs, peripheral pulses intact. Respiratory: Lungs clear to auscultation, no adventitious lung sounds, currently on room air Gastrointestinal: soft, non-distended, non-tender, normoactive bowel sounds. : voiding without difficulty. Extremities: moves all extremities well, no edema Skin: clean, dry, intact. No wounds or lesions. Neuro: Alert and oriented x4, cranial nerves intact, no neuro deficits. Psych: Anxious, impulsive, interactive H&P: Results Labs Labs: Short CBC 04/17/24 Range/Units 23:13 WBC 12.4 H (4.5-10.0) K/mm3 Hgb 14.6 (12.0-15.0) g/dL Hct 41.3 (37.0-47.0) % Plt Count 280 (150-375) k/mm3 BMP 04/17/24 23:13 Sodium 137 Potassium 3.0 L Chloride 103 Carbon Dioxide 28 BUN 12 Creatinine 0.65 L Glucose 110 Calcium 9.3 Cardiac Enzymes 04/17/24 04/18/24 04/18/24 Range/Units 23:13 02:17 08:44 Total Creatine Kinase (30-135) U/L Troponin I 0.140 H* 0.141 H* 0.123 H* (0.000-0.034) ng/mL 04/18/24 Range/Units 08:46 Total Creatine Kinase 421 H (30-135) U/L Troponin I (0.000-0.034) ng/mL Liver Function 04/17/24 Range/Units 23:13 Total Bilirubin 0.6 (0.2-1.3) mg/dL AST 41 H (14-36) U/L ALT 48 H (6-35) U/L Alkaline Phosphatase 206 H (38-126) U/L Albumin 3.8 (3.5-5.1) g/dL Urine 04/17/24 Range/Units 23:13 Urine Color Yellow (Yellow) Urine Appearance Clear (Clear) Urine pH 6.0 (5.0-9.0) Ur Specific Festus 1.009 (1.001-1.035) Urine Protein 1+ H (Negative) mg/dL Urine Glucose (UA) Negative (Negative) mg/dL Imaging CT scan - chest: Radiologist's impression: CT Scan of the Chest without Contrast: Clinical Indication: Pulmonary nodule Technique: Contiguous sections were acquired throughout the chest without intravenous contrast. Dose reduction technique was used on this scan by utilizing automated exposure control and iterative reconstruction technique. The dose-length product (DLP) was 286.49 mGy-cm. Findings: There is no evidence of any significant mediastinal, hilar or axillary lymphadenopathy. The mediastinal soft tissues appear normal. There is no evidence of pleural or pericardial effusion. There is a 12 mm peripheral right upper lobe pulmonary nodule (axial image 47). There are several tiny 1-2 mm peripheral right upper lobe pulmonary nodules. Images through the upper abdomen reveal cholelithiasis. Impression: 12 mm right upper lobe pulmonary nodule, indeterminate. Early neoplasm not excluded. Consider PET/CT or tissue sampling for further evaluation, versus short-term follow-up CT in 1-3 months. Comparison with any prior outside chest CTs to assess for chronicity of this nodule would be extremely useful, if available. Reviewed, dictated and finalized at [facility]. ATRIC COORDINATOR cervical spine CT: Radiologist's impression: PROCEDURE: CT cervical spine without intravenous contrast. COMPARISON: None TECHNIQUE: Multiple contiguous axial images of the cervical spine were performed without the administration of intravenous contrast. DLP: 484 mGy-cm FINDINGS: Straightening and slight reversal of the normal curvature of the cervical spine is identified, likely muscular in origin. No acute fractures are present. Severe degenerative disease is identified within the cervical spine with osteophyte formation, disc space narrowing, facet arthropathy and endplate changes. 9 mm soft tissue attenuation nodule within the right middle lobe, incompletely evaluated on the current study for which noncontrast CT examination of the chest is recommended for further evaluation. The remainder of the visualized portions of the bilateral upper lung perla are unremarkable. No soft tissue abnormality is present. The airway is patent. Impression: Straightening and slight reversal of the normal curvature of the cervical spine, likely muscular in origin. Degenerative disease without acute fracture. 9 mm soft tissue attenuation nodule within the right middle lobe, incompletely evaluated on the current study for which noncontrast CT examination of the chest is recommended for further evaluation. Reviewed, dictated and finalized at location A. ATRIC COORDINATOR CT scan - head: Radiologist's impression: PROCEDURE: CT head without contrast. COMPARISON: None TECHNIQUE: Axial imaging of the head performed from the skull base to the vertex without IV contrast. Sagittal and coronal reformations obtained. DLP: 605 mGy-cm FINDINGS: The ventricles are enlarged. The dilatation of the ventricles is proportional to the degree of sulcal prominence, not uncommon in the senescent brain. Decreased attenuation is identified within the periventricular white matter, likely secondary to microvascular ischemic disease, in a patient of this age. There is no mass, mass effect or midline shift. There is no abnormal extra-axial fluid collection or intracranial hemorrhage. Visualized paranasal sinuses are clear. The mastoid air cells are well aerated. No acute displaced fractures within the overlying cranium. Impression: No acute intracranial hemorrhage or suspicious mass effect. Reviewed, dictated and finalized at location A. ATRIC COORDINATOR Assessment and Plan Assessment and plan (1) Accidental overdose: Code(s): T50.901A - Poisoning by unspecified drugs, medicaments and biological substances, accidental (unintentional), initial encounter Status: Acute Assessment and Plan: * took Klonopin and Benadryl overnight, she states that she did not want to harm herself that she just wanted to sleep. She states that she took 7 Benadryl but unsure of how many Klonopin * Patient is followed by FLORA Espinoza at [place] * Will place call to provider tomorrow. * May need inpatient psych to straighten out her medications as she does not seem well controlled on current regimen. (2) Elevated troponin: Code(s): R79.89 - Other specified abnormal findings of blood chemistry Status: Acute Assessment and Plan: * troponin 0.140> 0.141> 0.123 * cardiology consulted * These can be slightly bumped due to mild Rhabdomyolysis, elevated CK. (3) Bipolar I disorder, most recent episode (or current) manic: Code(s): F31.10 - Bipolar disorder, current episode manic without psychotic features, unspecified Status: Acute Assessment and Plan: * patient currently on BuSpar, clonidine, trazodone, alazanine * has had suicidal ideations in the past with overdosing on medications * followed by FLORA Espinoza at [place] * Granddaughter admits that the patient constantly is running out of her medications before it is time for a refill. * Patient states all she wants to do is sleep because she is so depressed. * Hx of successful suicide in the family (4) Benign essential hypertension: Code(s): I10 - Essential (primary) hypertension Status: Acute Assessment and Plan: * blood pressure ranging 120/50-158/80 * continue lisinopril 10 mg daily (5) Mixed hyperlipidemia: Code(s): E78.2 - Mixed hyperlipidemia Status: Acute Assessment and Plan: * continue Crestor and aspirin (6) Hypothyroidism (acquired): Code(s): E03.9 - Hypothyroidism, unspecified Status: Acute Assessment and Plan: * continue Synthroid (7) Transaminitis: Code(s): R74.01 - Elevation of levels of liver transaminase levels Status: Acute Assessment and Plan: * AST 41, ALT 48, alk-phos 206, ammonia level less than 9 * Likely secondary to overuse of her bipolar medications and [id number] medications Quality VTE Prophylaxis VTE prophylaxis: pharmacologic ordered Hospitalist MIPS Advance Care Plan I have confirmed that the patient's Advanced Care Plan is present, code status is documented, or surrogate decision maker is listed in patient medical record.: Yes Medication Reconciliation I have utilized all available resources to obtain, update and review the patients current medications (includes all prescriptions, OTC, herbals, cannabis, and nutritional supplements).: Yes
[2024-04-18] MEDS: clonazePAM (*CRX) 0.5 MG TABLET PO (16:27)
[2024-04-18] MEDS: busPIRone HCL 5 MG TABLET 15 MG PO (16:27)
[2024-04-18] MEDS: POTASSIUM CHLORIDE 20 MEQ ER TABLET 40 MEQ PO ×2 (16:27→20:13)
[2024-04-18] MEDS: OLANZapine 5 MG TABLET 10 MG PO (20:13)
[2024-04-18] MEDS: traZODone HCL 25 MG TABLET PO (20:13)
--- NOTE | 2024-04-18 22:21 | PC.NURSE ---
This patient, Kia Chung, was transferred to [[id number] ] on 04/18/24 at 2222. Personal belongings sent with patient. Report given to [Gabriela Ansari rn ]. Appropriate documentation sent with patient.
[2024-04-19] VITALS (10 sets, daily range): BP systolic 99–120; BP diastolic 40–69; PULSE 65–98; RESP 16–20; TEMP 36.1–36.6; O2SAT 94–97
--- NOTE | 2024-04-19 | ECHO_ITS ---
Patient Info Name: Kia Chung Age: 74 years : 1950 Gender: Female Ht: 51 in Wt: 130 lbs BSA: 1.49 m2 HR: 94 bpm BP: 99 / 52 mmHg Technical Quality: Poor Exam Date: 04/19/2024 3:40 PM Exam Location: Echo Lab Patient Status: Inpatient Admit Date: 04/18/2024 Staff Ordering Physician: Earle Jefferson MD (alysia/chandu) Public Area Supervisor: Ac Montgomery RDCS Attending Provider: Leslie Wynne DO Referring Physician: Ronny FINN; Exam Type: CA echo dop color flow w con Study Info Indications - ELEVATED TROPONIN - MURMUR Complete two-dimensional, color flow and Doppler transthoracic echocardiogram is performed with contrast to opacify the left ventricle and to improve the deliniation of the left ventricle endocardial borders. Contrast/Agitated Saline Contrast/Ag. Saline: Definity Amount: 2.00 ml Existing IV Access: Yes Reason for Poor Study: poor echocardiographic windows Summary 1. Normal biventricular systolic function. 2. The aortic valve is not well visualized however there does appear to be mild to moderate aortic stenosis by echo gradient. Left Ventricle The left ventricle is normal in size and systolic function. There is mild concentric left ventricular hypertrophy. Left ventricular ejection fraction is visually estimated to be greater than 70%. There are no regional wall motion abnormalities in this study. Left Atria The left atrium is normal in size. Right Atria The right atrium is normal in size. Atrial Septum The atrial septum visually appears intact. Aortic Valve The aortic valve is not well visualized. The gradients across the valve the suggest possible mild to moderate aortic stenosis. Pulmonic Valve The pulmonic valve is not well visualized. Mitral Valve The mitral valve is normal. There is no mitral regurgitation. Tricuspid Valve The tricuspid valve is not well visualized. There is trace tricuspid regurgitation. Pericardium/Pleural There is small pericardial effusion. Inferior Vena Cava Normal inferior vena cava with >50% collapse upon inspiration consistent with normal right atrial pressure, 3 mmHg. Aorta The aortic root at the level of the sinus of Valsalva measures 2.2 cm in diameter. Left Ventricular Outflow Tract Name Value Normal LVOT 2D LVOT Diameter 1.65 cm LVOT Doppler LVOT Peak Gradient 7 mmHg LVOT Mean Gradient 4 mmHg LVOT VTI 22.84 cm LVOT VTI/AV VTI Ratio 0.46 LVOT Stroke Volume 48.96 ml LVOT CO 4.22 l/min LVOT CI 2.82 L/min/m2 Pulmonic Valve Name Value Normal RVOT Doppler RVOT Peak Gradient 3 mmHg PV Doppler PV Peak Gradient 5 mmHg Mitral Valve Name Value Normal MV Doppler MV Decel [place] 539.92 cm/s2 MV PHT 0 s MV Area (PHT) 5.64 cm2 4.00-5.00 MV Diastolic Function MV E Peak Velocity 72.64 cm/s MV A Peak Velocity 118.81 cm/s MV E/A 0.61 MV Decel Time 0 s MV Annular TDI MV E/e' (Septal) 14.91 <=8.00 MV E/e' (Lateral) 16.55 <=8.00 MV E/e' (Average) 15.73 Tricuspid Valve Name Value Normal TV Regurgitation Doppler TR Peak Velocity 276.55 cm/s TR Peak Gradient 31 mmHg Estimated PAP/RSVP RA Pressure 3 mmHg <=5 PA Systolic Pressure 34 mmHg <36 RV Systolic Pressure 34 mmHg <36 Aorta Name Value Normal Ascending Aorta Ao Root Diameter (MM) 2.82 cm Ao Root Diam Index (MM) 1.89 cm/m2 Aortic Valve Name Value Normal AV Doppler AV Peak Velocity 329.85 cm/s AV Peak Gradient 33 mmHg AV Mean Gradient 19 mmHg AV VTI 49.33 cm AV Area (Cont Eq VTI) 0.99 cm2 >=3.00 AV Area (Cont Eq Hugh) 0.88 cm2 AV Regurgitation 2D LVOT Area 2.14 cm2 Ventricles Name Value Normal LV Dimensions 2D/MM IVS Diastolic Thickness (2D) 1.32 cm 0.60-1.00 LVID Diastole (2D) 3.42 cm 3.80-5.20 LVIW Diastolic Thickness (2D) 1.34 cm 0.60-0.90 LVID Systole (2D) 1.84 cm 2.20-3.50 LVOT Diameter 1.65 cm LV Mass (2D Cubed) 154.18 g 67.00-162.00 LV Mass Index (2D Cubed) 0.01 g/cm2 0.00-0.01 Relative Wall Thickness (2D) 0.78 LV Fractional Shortening/Ejection Fraction 2D/MM LV Fractional Shortening (2D) 44 % 27-45 LV EF (2D Teicholz) 76 % 54-74 LV Diastolic Volume (4C MOD) 75.99 ml LV EF (4C MOD) 84 % LV Diastolic Volume (2C MOD) 70.12 ml LV EF (2C MOD) 73 % LV Diastolic Volume (BP MOD) 75.29 ml 46.00-106.00 LV Diastolic Volume Index (BP MOD) 0.05 l/m2 0.03-0.06 LV Systolic Volume (BP MOD) 15.35 ml 14.00-42.00 LV Systolic Volume Index (BP MOD) 0.01 l/m2 0.01-0.02 LV EF (BP MOD) 80 % 54-74 LV Diastolic Length (4C) 7.84 cm LV Systolic Length (4C) 6.25 cm LV Stroke Volume (4C MOD) 63.79 ml Atria Name Value Normal LA Dimensions LA Dimension (MM) 3.71 cm 2.70-3.80 LA Volume (4C A-L) 36.17 ml LA Volume (BP A-L) 36.79 ml RA Dimensions RA Area (4C) 7.26 cm2 <=18.00 Report Signatures
[2024-04-19] MEDS: LEVOTHYROXINE SODIUM 88 MCG TABLET PO (05:03)
[2024-04-19 06:09] LABS: Basophils Percent Auto 0.4 % (0.2-1.2); Eosinophils Percent Auto 0.3 % (0-4.4); Hematocrit 39.5 % (37.0-47.0); Hemoglobin 13.1 g/dL (12.0-15.0); Immature Granulocyte Absolute 0.02 K/mm3 (0.00-0.031); Immature Granulocyte Percent A 0.3 % (0-0.5); Lymphocytes Absolute Auto 2.22 K/mm3 (0.9-3.2); Lymphocytes Percent Auto 31.4 % (18.3-44.2); Mean Corpuscular HGB Conc 33.2 g/dl (32-36); Mean Corpuscular Hemoglobin 30.4 pg (26-34); Mean Corpuscular Volume 91.6 fl (80-100); Mean Platelet Volume 11.9 fl (7.4-10.4); Monocytes Absolute Auto 0.6 K/mm3 (0.1-0.6); Monocytes Percent Auto 8.5 % (2.6-8.5); Neutrophils Absolute Auto 4.2 K/mm3 (1.3-6.7); Neutrophils Percent Auto 59.1 % (45.5-73.1); Platelet Count Result 242 k/mm3 (150-375); Red Blood Count 4.31 M/mm3 (4.2-5.4); Red Cell Distribution Width 13.6 % (11.5-14.5); White Blood Count 7.1 K/mm3 (4.5-10.0)
[2024-04-19 06:21] LABS: Alanine Aminotransferase 32 U/L (6-35); Albumin Level 3.1 g/dL (3.5-5.1); Alkaline Phosphatase 167 U/L (38-126); Anion Gap 3 mmol/L (4-12); Aspartate Amino Transferase 31 U/L (14-36); Bilirubin,Total 0.7 mg/dL (0.2-1.3); Blood Urea Nitrogen 13 mg/dL (7-17); Calcium 8.7 mg/dL (8.4-10.2); Carbon Dioxide 27 mmol/L (22-30); Chloride 107 mmol/L (98-107); Creatine Kinase 205 U/L (30-135); Estimated Glomerular Filt Rate > 60; Glucose 87 mg/dL (65-110); Potassium 3.9 mmol/L (3.4-5.0); Sodium 137 mmol/L (137-145)
[2024-04-19] MEDS: ASPIRIN 81 MG CHEWABLE TABLET PO (08:56)
[2024-04-19] MEDS: busPIRone HCL 5 MG TABLET 15 MG PO ×2 (08:56→17:32)
[2024-04-19] MEDS: ENOXAPARIN 40 MG/0.4 ML SYRINGE SUB-Q (08:56)
[2024-04-19] MEDS: ROSUVASTATIN 20 MG TABLET PO (08:56)
[2024-04-19] MEDS: lisinopriL 10 MG TABLET PO (08:57)
--- NOTE | 2024-04-19 15:19 | P.PNIM_ITS ---
Progress Note: A&P Assessment and Plan (1) Accidental overdose: Code(s): T50.901A - Poisoning by unspecified drugs, medicaments and biological substances, accidental (unintentional), initial encounter Status: Acute Assessment and Plan: * took Klonopin and Benadryl overnight, she states that she did not want to harm herself that she just wanted to sleep. She states that she took 7 Benadryl but unsure of how many Klonopin * Patient is followed by FLORA Espinoza at [place] * Will place call to provider tomorrow. * May need inpatient psych to straighten out her medications as she does not seem well controlled on current regimen. 04/19 * Spoke with Spike Allen's office and Spike is recommending that she be placed in inpatient psych considering the overdose of Klonopin and Benadryl. She will hold off on giving her any more benzodiazepines due to this overdose. * Patient is agreeable to inpatient psych to help regulate her medications a little bit better as she is not feeling that she is under control. * Case coordination working on placement and insurance approval (2) Elevated troponin: Code(s): R79.89 - Other specified abnormal findings of blood chemistry Status: Acute Assessment and Plan: * troponin 0.140> 0.141> 0.123 * cardiology consulted * These can be slightly bumped due to mild Rhabdomyolysis, elevated CK. * total CK initially for 21> 205 (3) Bipolar I disorder, most recent episode (or current) manic: Code(s): F31.10 - Bipolar disorder, current episode manic without psychotic features, unspecified Status: Acute Assessment and Plan: * patient currently on BuSpar, clonidine, trazodone, alazanine * has had suicidal ideations in the past with overdosing on medications * followed by FLORA Espinoza at [place] * Granddaughter admits that the patient constantly is running out of her medications before it is time for a refill. * Patient states all she wants to do is sleep because she is so depressed. * Hx of successful suicide in the family 04/19 * Case coordination following for inpatient psych placement * spoke with Spike Allen's office who agrees for inpatient psych (4) Benign essential hypertension: Code(s): I10 - Essential (primary) hypertension Status: Acute Assessment and Plan: * blood pressure ranging 120/50-158/80 * continue lisinopril 10 mg daily (5) Mixed hyperlipidemia: Code(s): E78.2 - Mixed hyperlipidemia Status: Acute Assessment and Plan: * continue Crestor and aspirin (6) Hypothyroidism (acquired): Code(s): E03.9 - Hypothyroidism, unspecified Status: Acute Assessment and Plan: * continue Synthroid (7) Transaminitis: Code(s): R74.01 - Elevation of levels of liver transaminase levels Status: Acute Assessment and Plan: * AST 41, ALT 48, alk-phos 206, ammonia level less than 9 * Likely secondary to overuse of her bipolar medications and [id number] medications 04/19 * AST back down to 31, ALT 32, alk-phos 167 Time Spent With Patient Time with patient: Greater than 35 minutes Subjective Date/time seen: 04/19/24 15:19 Interval history: Interval history: This is a 73-year-old female with a significant past medical history of hypothyroidism, hyperlipidemia, bipolar 1 disorder, hypertension, transaminitis, former smoker who presented today for evaluation of altered mental status. Patient is unsure how much of her Klonopin that she took but she did report taking 7 Benadryl to help her sleep. Patient reported that she took her Klonopin and some Benadryl last night to help her sleep. Granddaughter is at the bedside and reported that the neighbor called her and notified her of the patient falling. She was reported in the ED to have multiple falls where EMS was called out to the house multiple times and please has also been called out to the house multiple times due to overdoses in the past. She has history of suicidal tendencies however this time she reports that she did denies any suicidal thoughts and was just trying to get some sleep. Granddaughter states that is common for her to over abuse her medications and runs out about 2 weeks before the refill is due. She is followed by FLORA Espinoza over at [place]. Patient has her Daughter as her POA who is not present currently. Patient is alert and oriented x4 and able to state she wants to be DNR status. She does not have any suicidal thoughts or ideations at this time. She states she was just trying to get some sleep as she is chronically depressed. According to the grand daughter, the patient wants to sleep all the time and only wakes up to take more medications. Workup in the hospital included a head CT which was negative for any acute intracranial hemorrhage. Cervical spine CT showed straightening and slight reversal of the normal curvature of the cervical spine, degenerative disc without acute fracture, 9 mm soft tissue attenuation nodule within the right middle lobe. Chest CT showed 12 mm right upper lobe pulmonary nodule in determine with recommendations for PET/ CT or tissue sampling for further evaluation verses short-term follow-up CT in 1-3 months. Initial labs revealed a white blood cell count of 12.4, INR 1.0, potassium 3.0, creatinine 0.65, lactic acid was normal at 1.3, liver enzymes showed an AST of 41, ALT of 48, alk phos 206, ammonia level was less than 9, total creatinine kinase 421, troponin 0.140> 0.141> 0.123, TSH 0.200. UA was obtained and showed 1+ urine protein, otherwise negative. Urine drug screen was negative. Respiratory panel was negative. EKG showed sinus rhythm with left anterior fascicular block with a rate of 97, QTC 485. Patient was given aspirin in the ED. Subjective: Patient denies any new complaints overnight. I did discuss with the patient and the grand daughter that she would best be served with inpatient psych to help regulate her medications better as she is not feeling well controlled at home which makes her take more of the medication than what is prescribed. She is agreeable to transfer to inpatient psych for additional help. Patient is alert and oriented x3, she is able to make her own decisions. I did speak with Spike Allen's office and she is recommending inpatient psych as well considering the overdose of Benadryl and Klonopin. They will hold off on giving her anymore Benzodiazepines at this time. Review of Systems Review of Systems: All systems reviewed & are unremarkable except as noted in HPI and below Constitutional: Constitutional: Reports as per HPI and Reports no additional constitutional complaints Eyes: Eyes: Reports as per HPI and Reports no additional eye complaints ENT: Reports system reviewed and no additional complaints, except as documented and Reports as per HPI Cardiovascular: Cardiovascular: Reports as per HPI and Reports no additional cardiovascular complaints Respiratory: Respiratory: Reports as per HPI and Reports no additional respiratory complaints Gastrointestinal: Gastrointestinal: Reports as per HPI and Reports no additi onal gastrointestinal complaints Genitourinary: Genitourinary: Reports no additional female genitourinary complaints and Reports as per HPI Musculoskeletal: Musculoskeletal: Reports no additional musculoskeletal complaints and Reports as per HPI Integumentary/Breasts: Skin/Breast: Reports system reviewed and no additional complaints, except as docu and Reports as per HPI Neurologic: Reports system reviewed and no additional complaints, except as documented and Reports as per HPI Psychiatric: Psychiatric: Reports no additional psychiatric complaints and Reports as per HPI Exam Narrative: General: In no acute distress, well nourished Cardiac: Normal S1 and S2. Murmur noted. No gallops or friction rubs, peripheral pulses intact. Respiratory: Lungs clear to auscultation, no adventitious lung sounds, currently on room air Gastrointestinal: soft, non-distended, non-tender, normoactive bowel sounds. : voiding without difficulty. Neuro: Alert and oriented x4 Objective Data Vital Signs Vital Signs: Vital Signs - 24 hr 04/18/24 15:50 04/18/24 16:00 04/18/24 19:16 Temperature 98.3 F 98.4 F Pulse Rate 106 H 106 H 96 Respiratory Rate 24 H 14 Blood Pressure 128/72 137/52 L Pulse Oximetry 93 93 Oxygen Delivery 04/18/24 20:00 04/18/24 20:00 04/18/24 22:26 Temperature Pulse Rate 98 98 99 Respiratory Rate 14 Blood Pressure Pulse Oximetry 93 Oxygen Delivery Room Air 04/18/24 22:28 04/19/24 00:00 04/19/24 04:00 Temperature 98.4 F Pulse Rate 93 79 75 Respiratory Rate 18 Blood Pressure 141/50 H Pulse Oximetry 100 Oxygen Delivery 04/19/24 04:00 04/19/24 07:42 04/19/24 08:31 Temperature 97.0 F L 97.4 F L Pulse Rate 84 66 Respiratory Rate 20 16 Blood Pressure 120/40 L 104/41 L Pulse Oximetry 95 94 94 Oxygen Delivery Room Air 04/19/24 09:00 04/19/24 11:50 Temperature 97.4 F L Pulse Rate 94 Respiratory Rate 16 Blood Pressure 99/52 L Pulse Oximetry 97 Oxygen Delivery Room Air Intake/Output Intake/Output: Intake & Output 04/16/24 04/17/24 04/18/24 04/19/24 23:59 23:59 23:59 23:59 Intake Total 320 1090 Balance 320 1090 Meds/Results Medications: Active Medications Generic Name Dose Route Start Last Admin Trade Name Freq PRN Reason Stop Dose Admin Acetaminophen 650 mg 04/18/24 13:43 Acetaminophen 325 Mg Tablet PO Q4H PRN Mild Pain (1-3) or Fever Aspirin 81 mg 04/18/24 08:00 04/19/24 08:56 Aspirin 81 Mg Chewable Tablet PO 81 mg DAILY@0800 ARTIS Administration Buspirone HCl 15 mg 04/18/24 17:00 04/19/24 08:56 Buspirone Hcl 5 Mg Tablet PO 15 mg BID ARTIS Administration Clonazepam 0.5 mg 04/18/24 13:49 04/18/24 16:27 Clonazepam (*Crx) 0.5 Mg Tablet PO 0.5 mg TID PRN Administration anxiety Enoxaparin Sodium 40 mg 04/19/24 09:00 04/19/24 08:56 Enoxaparin 40 Mg/0.4 Ml Syringe SUB-Q 40 mg DAILY ARTIS Administration Levothyroxine Sodium 88 mcg 04/19/24 06:30 04/19/24 05:03 Levothyroxine Sodium 88 Mcg Tablet PO 88 mcg DAILY@0630 ARTIS Administration Lisinopril 10 mg 04/19/24 09:00 04/19/24 08:57 Lisinopril 10 Mg Tablet PO 10 mg DAILY ARTIS Administration Olanzapine 10 mg 04/18/24 21:00 04/18/24 20:13 Olanzapine 5 Mg Tablet PO 10 mg HS ARTIS Administration Ondansetron HCl 4 mg 04/18/24 13:43 Ondansetron Inj 4 Mg/2 Ml Vial IV PUSH Q6H PRN Nausea And Vomiting Rosuvastatin Calcium 20 mg 04/19/24 09:00 04/19/24 08:56 Rosuvastatin 20 Mg Tablet PO 20 mg DAILY ARTIS Administration Trazodone HCl 25 mg 04/18/24 13:49 04/18/24 20:13 Trazodone Hcl 25 Mg Tablet PO 25 mg QHS PRN Administration insomnia Radiology Results: ITS Impressions Chest X-Ray 04/17/24 23:38 IMPRESSION: Mild pulmonary vascular congestion, without focal infiltrate or effusion. Head CT 04/17/24 23:42 Impression: No acute intracranial hemorrhage or suspicious mass effect. Cervical Spine CT 04/17/24 23:48 Impression: Straightening and slight reversal of the normal curvature of the cervical spine, likely muscular in origin. Degenerative disease without acute fracture. 9 mm soft tissue attenuation nodule within the right middle lobe, incompletely evaluated on the current study for which noncontrast CT examination of the chest is recommended for further evaluation. Chest CT 04/18/24 05:15 Impression: 12 mm right upper lobe pulmonary nodule, indeterminate. Early neoplasm not excluded. Consider PET/CT or tissue sampling for further evaluation, versus short-term follow-up CT in 1-3 months. Comparison with any prior outside chest CTs to assess for chronicity of this nodule would be extremely useful, if available. Labs Labs: Laboratory Results - last 24 hr 04/19/24 05:34 WBC 7.1 RBC 4.31 Hgb 13.1 Hct 39.5 MCV 91.6 D MCH 30.4 MCHC 33.2 RDW 13.6 Plt Count 242 MPV 11.9 H Immature Gran % (Auto) 0.3 Neut % (Auto) 59.1 Lymph % (Auto) 31.4 Faulk % (Auto) 8.5 Eos % (Auto) 0.3 Baso % (Auto) 0.4 Lymph # (Auto) 2.22 Faulk # (Auto) 0.6 Eos # (Auto) 0.0 Baso # (Auto) 0.0 Abs Immat Gran (auto) 0.02 Absolute Neuts (auto) 4.2 Absolute Nucleated RBC 0.000 Nucleated RBC % 0.0 Sodium 137 Potassium 3.9 Chloride 107 Carbon Dioxide 27 Anion Gap 3 L BUN 13 Creatinine 0.73 Estim Creat Clear Calc Not Reportable Estimated GFR > 60 Glucose 87 Calcium 8.7 Total Bilirubin 0.7 AST 31 ALT 32 Alkaline Phosphatase 167 H Total Creatine Kinase 205 H Total Protein 6.0 L Albumin 3.1 L Quality VTE Prophylaxis VTE prophylaxis: pharmacologic ordered
--- NOTE | 2024-04-19 15:21 | P.CONCA_ITS ---
Assessment and Plan Assessment and plan (1) Accidental overdose: Code(s): T50.901A - Poisoning by unspecified drugs, medicaments and biological substances, accidental (unintentional), initial encounter Status: Acute Assessment and Plan: Management as per primary team (2) Elevated troponin: Code(s): R79.89 - Other specified abnormal findings of blood chemistry Status: Acute Assessment and Plan: Minimally elevated and flat, not an acute coronary syndrome. Will obtain an echocardiogram due to murmur. If echocardiogram without significant abnormality, then no additional cardiac workup recommended. (3) Systolic ejection murmur: Code(s): R01.1 - Cardiac murmur, unspecified Status: Acute Assessment and Plan: Will obtain an echocardiogram due to murmur. (4) Benign essential hypertension: Code(s): I10 - Essential (primary) hypertension Status: Acute Assessment and Plan: Stable. (5) Mixed hyperlipidemia: Code(s): E78.2 - Mixed hyperlipidemia Status: Acute Assessment and Plan: Continue statin. History of Present Illness History of Present Illness Consult date/time: 04/19/24 15:21 Requesting physician: Gricelda Penn, [employer] Consult reason: Other (Elevated troponin) Reason For Visit: Accidental overdose, Frequent falls, Elevated Trop Narrative: Kia is a 73 year old female with hypertension, hyperlipidemia, hypothyroidism, bipolar disorder, who is admitted after an accidental overdose. Unsure of how much Klonopin she took, but she does remember taking 7 Benadryls. Was trying to fall asleep. We are consulted for elevated troponins. Patient denies prior cardiac history, but was told she has a heart murmur. Troponins are 0.140, 0.141, 0.123. EKG with sinus rhythm, T wave abnormality in the high lateral leads. She denies any cardiovascular complaints. Review of Systems 2 Review of Systems: All systems reviewed & are unremarkable except as noted in HPI and below (HPI) [facility] Past Medical History Medical History Transaminitis Benign essential hypertension Bipolar I disorder, most recent episode (or current) manic Hypothyroidism (acquired) Mixed hyperlipidemia Family History Family History Father Acute myocardial infarction Mother Acute myocardial infarction Suicide Daughter Suicide Social History Social History Social History: Caffeine-half calf coffee Smoking status: Former smoker Second hand tobacco smoke exposure: No Smoking end date: 04/12/09 Alcohol intake: never Substance use: never Substance use type: does not use Do You Feel Safe in your Home?: Yes Lack of Transportation: No Lack of Food: Never True Current Housing: I Have Housing Concerned About Future Housing: No Difficulty Paying Gas/Electric Bills: No Difficulty Paying for Meds: No Currently Unemployed: No Education: High School Diploma/GED Difficulty w/ Childcare or Family Care: No Gender identity (if verbalized by the patient): Female Spiritual care concerns: No Meds Home Medications and Allergies Home Medications ?Medication ?Instructions ?Recorded ?Confirmed ?Type clonazepam 0.5 mg tablet (Klonopin) 0.5 mg PO TID PRN anxiety 12/25/19 04/18/24 History olanzapine 10 mg tablet 10 mg PO HS 12/25/19 04/18/24 History buspirone 10 mg tablet 15 mg PO BID 09/24/23 04/18/24 History rosuvastatin 20 mg tablet 20 mg PO DAILY #90 tabs 10/29/23 04/18/24 Rx lisinopril 10 mg tablet 10 mg PO DAILY #90 tabs 12/31/23 04/18/24 Rx trazodone 50 mg tablet 25 mg PO QHS PRN insomnia 03/28/24 04/18/24 History levothyroxine 88 mcg tablet 88 mcg PO DAILY #90 tabs 04/13/24 04/18/24 Rx Allergies Allergy/AdvReac Type Severity Reaction Status Date / Time chlorpromazine (From Allergy Severe Other Verified 04/18/24 08:56 Thorazine) Vital Signs Vital Signs - 24 hr 04/18/24 15:50 04/18/24 16:00 04/18/24 19:16 Temperature 36.8 C 36.9 C Pulse Rate 106 H 106 H 96 Respiratory Rate 24 H 14 Blood Pressure 128/72 137/52 L Pulse Oximetry 93 93 Oxygen Delivery 04/18/24 20:00 04/18/24 20:00 04/18/24 22:26 Temperature Pulse Rate 98 98 99 Respiratory Rate 14 Blood Pressure Pulse Oximetry 93 Oxygen Delivery Room Air 04/18/24 22:28 04/19/24 00:00 04/19/24 04:00 Temperature 36.9 C Pulse Rate 93 79 75 Respiratory Rate 18 Blood Pressure 141/50 H Pulse Oximetry 100 Oxygen Delivery 04/19/24 04:00 04/19/24 07:42 04/19/24 08:31 Temperature 36.1 C L 36.3 C L Pulse Rate 84 66 Respiratory Rate 20 16 Blood Pressure 120/40 L 104/41 L Pulse Oximetry 95 94 94 Oxygen Delivery Room Air 04/19/24 09:00 04/19/24 11:50 Temperature 36.3 C L Pulse Rate 94 Respiratory Rate 16 Blood Pressure 99/52 L Pulse Oximetry 97 Oxygen Delivery Room Air Exam 2 Const: General: comfortable and no acute distress HENMT: Mouth: Yes moist mucous membranes Eyes: General: appearance normal, both eyes and all related structures S clera: sclerae normal Resp: Effort & Inspection: normal respiratory effort Cardio: Rate: regular rate Rhythm: regular rhythm Heart sounds: Murmur heart sound present systolic Skin: General skin exam: normal color Neuro: Speech: normal speech Psych: Mental Status: mental status grossly normal Affect: normal affect Results Labs and Meds 04/19/24 05:34 04/19/24 05:34 Lab results: Cardiac Enzymes 04/19/24 Range/Units 05:34 AST 31 (14-36) U/L CBC 04/19/24 Range/Units 05:34 WBC 7.1 (4.5-10.0) K/mm3 RBC 4.31 (4.2-5.4) M/mm3 Hgb 13.1 (12.0-15.0) g/dL Hct 39.5 (37.0-47.0) % Plt Count 242 (150-375) k/mm3 Lymph # (Auto) 2.22 (0.9-3.2) K/mm3 Warren # (Auto) 0.6 (0.1-0.6) K/mm3 Eos # (Auto) 0.0 (0-0.3) K/mm3 Baso # (Auto) 0.0 (0.0-0.1) K/mm3 Comprehensive Metabolic Panel 04/19/24 Range/Units 05:34 Sodium 137 (137-145) mmol/L Potassium 3.9 (3.4-5.0) mmol/L Chloride 107 (98-107) mmol/L Carbon Dioxide 27 (22-30) mmol/L BUN 13 (7-17) mg/dL Creatinine 0.73 (0.7-1.0) mg/dL Glucose 87 (65-110) mg/dL Calcium 8.7 (8.4-10.2) mg/dL AST 31 (14-36) U/L ALT 32 (6-35) U/L Alkaline Phosphatase 167 H (38-126) U/L Total Protein 6.0 L (6.3-8.2) g/dL Albumin 3.1 L (3.5-5.1) g/dL Intake and Output 04/18/24 04/19/24 04/19/24 23:59 07:59 15:59 Intake Total 200 500 590 Balance 200 500 590 Intake: Oral 200 500 590 Other: # Unmeasured Voids 2 1 Patient Weight 04/19/24 23:59 Weight 59.1 kg
[2024-04-19] MEDS: PERFLUTREN LIPID MICROSPHERES 1.5 ML VIAL DILUTED TO 10 ML TOTAL VOLUME IV PUSH (16:30)
--- NOTE | 2024-04-19 16:50 | IVDEFINITY ---
Prior to administration of IV Definity the patient was educated on the risks and benefits of the imaging enhancing agent including potential adverse side effects. The patient verbalized understanding. Allergies were verified. No exclusion criteria were identified and at least one of the following inclusion criteria were met: 1) physician request, 2) patient technically difficult to image (per the [place] [employer] guidelines of two or more segments not discernable within the apical view), or 3) questionable left ventricular function. ?
--- NOTE | 2024-04-19 17:03 | PCCCNOTE ---
Pt's nurse called to let me know that [facility] requested the voluntary admission application. This was then faxed to them([phone]), and attempted to call them back, with no answer. Pt's nurse notified.
[2024-04-19] MEDS: polyethylene glycoL 3350 17 GM POWD.PACK PO (17:32)
--- NOTE | 2024-04-19 18:02 | PM.EVENT ---
Event Note Event Note Event Note: Spoke to day provider Gricelda Penn, and patient is medically cleared to go to [facility] inpatient tonight on a voluntary basis. Vital signs stable Grace RAMOSP
--- NOTE | 2024-04-19 18:26 | PCCCNOTE ---
[facility] called the floor nurse and is able to take pt tonight. Voluntary admission form faxed to them.
--- NOTE | 2024-04-19 19:50 | PC.NURSE ---
Day nurse has placed medical clearance in discharge packet. She has also provided Barbara RN report on patient. extra gang supervisor states in house transport not available at this time. 3ms charge has call out to [facility]. [facility] can not provide an ETA at this time due to downed system but is placed on transport list. Awaiting call back.
[2024-04-19] MEDS: OLANZapine 5 MG TABLET 10 MG PO (21:19)
[2024-04-19 21:58] LABS: Glucose Point of Care 122 mg/dl (65-105)
--- NOTE | 2024-04-19 22:41 | PC.NURSE ---
[facility] to transport patient. Discharge information and all personal belongings sent along with patient. Barbara notified that patient is en route.
--- NOTE | 2024-04-20 08:16 | P.DS_ITS ---
DS: Admitting Diagnosis Discharge Date 04/19/24 Admitting Diagnosis accidental overdose elevated troponin bipolar 1 disorder hypertension hyperlipidemia hypothyroidism transaminitis DS: Discharge Diagnosis Discharge Diagnosis (1) Accidental overdose: Code(s): T50.901A - Poisoning by unspecified drugs, medicaments and biological substances, accidental (unintentional), initial encounter Status: Acute Assessment and Plan: * took Klonopin and Benadryl overnight, she states that she did not want to harm herself that she just wanted to sleep. She states that she took 7 Benadryl but unsure of how many Klonopin * Patient is followed by FLORA Espinoza at [place] * Will place call to provider tomorrow. * May need inpatient psych to straighten out her medications as she does not seem well controlled on current regimen. 04/19 * Spoke with Spike Allen's office and Spike is recommending that she be placed in inpatient psych considering the overdose of Klonopin and Benadryl. She will hold off on giving her any more benzodiazepines due to this overdose. * Patient is agreeable to inpatient psych to help regulate her medications a little bit better as she is not feeling that she is under control. * Case coordination working on placement and insurance approval (2) Elevated troponin: Code(s): R79.89 - Other specified abnormal findings of blood chemistry Status: Acute Assessment and Plan: * troponin 0.140> 0.141> 0.123 * cardiology consulted * These can be slightly bumped due to mild Rhabdomyolysis, elevated CK. * total CK initially for 21> 205 (3) Bipolar I disorder, most recent episode (or current) manic: Code(s): F31.10 - Bipolar disorder, current episode manic without psychotic features, unspecified Status: Acute Assessment and Plan: * patient currently on BuSpar, clonidine, trazodone, alazanine * has had suicidal ideations in the past with overdosing on medications * followed by FLORA Espinoza at [place] * Granddaughter admits that the patient constantly is running out of her medications before it is time for a refill. * Patient states all she wants to do is sleep because she is so depressed. * Hx of successful suicide in the family 04/19 * Case coordination following for inpatient psych placement * spoke with Spike Allen's office who agrees for inpatient psych (4) Benign essential hypertension: Code(s): I10 - Essential (primary) hypertension Status: Acute Assessment and Plan: * blood pressure ranging 120/50-158/80 * continue lisinopril 10 mg daily (5) Mixed hyperlipidemia: Code(s): E78.2 - Mixed hyperlipidemia Status: Acute Assessment and Plan: * continue Crestor and aspirin (6) Hypothyroidism (acquired): Code(s): E03.9 - Hypothyroidism, unspecified Status: Acute Assessment and Plan: * continue Synthroid (7) Transaminitis: Code(s): R74.01 - Elevation of levels of liver transaminase levels Status: Acute Assessment and Plan: * AST 41, ALT 48, alk-phos 206, ammonia level less than 9 * Likely secondary to overuse of her bipolar medications and [id number] medications 04/19 * AST back down to 31, ALT 32, alk-phos 167 DS: Summary Hospital Course Reason for hospitalization: accidental overdose elevated troponin bipolar 1 disorder hypertension hyperlipidemia hypothyroidism transaminitis Hospital Course: This is a 73-year-old female with a significant past medical history of hypothyroidism, hyperlipidemia, bipolar 1 disorder, hypertension, transaminitis, former smoker who presented today for evaluation of altered mental status. Patient is unsure how much of her Klonopin that she took but she did report taking 7 Benadryl to help her sleep. Patient reported that she took her Klonopin and some Benadryl last night to help her sleep. Granddaughter is at the bedside and reported that the neighbor called her and notified her of the patient falling. She was reported in the ED to have multiple falls where EMS was called out to the house multiple times and please has also been called out to the house multiple times due to overdoses in the past. She has history of suicidal tendencies however this time she reports that she did denies any suicidal thoughts and was just trying to get some sleep. Granddaughter states that is common for her to over abuse her medications and runs out about 2 weeks before the refill is due. She is followed by FLORA Espinoza over at [place]. Patient has her Daughter as her POA who is not present currently. Patient is alert and oriented x4 and able to state she wants to be DNR status. She does not have any suicidal thoughts or ideations at this time. She states she was just trying to get some sleep as she is chronically depressed. According to the grand daughter, the patient wants to sleep all the time and only wakes up to take more medications. Workup in the hospital included a head CT which was negative for any acute intracranial hemorrhage. Cervical spine CT showed straightening and slight reversal of the normal curvature of the cervical spine, degenerative disc without acute fracture, 9 mm soft tissue attenuation nodule within the right middle lobe. Chest CT showed 12 mm right upper lobe pulmonary nodule in determine with recommendations for PET/ CT or tissue sampling for further evaluation verses short-term follow-up CT in 1-3 months. Initial labs revealed a white blood cell count of 12.4, INR 1.0, potassium 3.0, creatinine 0.65, lactic acid was normal at 1.3, liver enzymes showed an AST of 41, ALT of 48, alk phos 206, ammonia level was less than 9, total creatinine kinase 421, troponin 0.140> 0.141> 0.123, TSH 0.200. UA was obtained and showed 1+ urine protein, otherwise negative. Urine drug screen was negative. Respiratory panel was negative. EKG showed sinus rhythm with left anterior fascicular block with a rate of 97, QTC 485. Patient was given aspirin in the ED. Patient denies any new complaints overnight. I did discuss with the patient and the grand daughter that she would best be served with inpatient psych to help regulate her medications better as she is not feeling well controlled at home which makes her take more of the medication than what is prescribed. She is agreeable to transfer to inpatient psych for additional help. Patient is alert and oriented x3, she is able to make her own decisions. I did speak with Spike Allen's office and she is recommending inpatient psych as well considering the overdose of Benadryl and Klonopin. They will hold off on giving her anymore benzodiazepines at this time. Patient was transferred to [facility] bed in stable condition. condition: stable final diagnosis: accidental overdose, elevated troponin, transaminitis, uncontrolled bipolar 1 disorder Status at Discharge Cognitive/behavioral status at discharge: alert oriented x3 Functional status at discharge: independent ambulation Overall status at discharge: patient is progressing back to baseline Time Spent with Patient Time attestation: Total time spent providing and/or coordinating discharge services: Time spent: Greater than 30 minutes Exam Narrative: General: In no acute distress, well nourished Cardiac: Normal S1 and S2. Murmur noted. No gallops or friction rubs, peripheral pulses intact. Respiratory: Lungs clear to auscultation, no adventitious lung sounds, currently on room air Gastrointestinal: soft, non-distended, non-tender, normoactive bowel sounds. : voiding without difficulty. Neuro: Alert and oriented x4 DS: Data Data Completed and Pending Completed studies during hospitalization: head CT cervical spine CT chest CTA Pending studies at discharge: none Labs on day of discharge: Labs from last 24 hours 04/19/24 20:02 POC Capillary Glucose 122 H Procedures/Treatments: none Discharge Plan Discharge Attending physician on discharge: Vi Colón Consulting providers: Gricelda Penn; Earle Jefferson; Vi Colón; Vineet Urias; Triny Gamino Discharging Clinician: Vi Colón Patient Disposition: Psychiatric Hosp Patient Instructions: High Troponin Levels (GEN) Patient Language: Stateless Discharge Orders: Discharge Order (Routine); Ordered 04/19/24 Ordered By: Vi Colón Discharge Medications: Continued trazodone 50 mg tablet 25 mg PO QHS PRN (Reason: insomnia) clonazepam [Klonopin] 0.5 mg tablet 0.5 mg PO TID PRN (Reason: anxiety) olanzapine 10 mg tablet 10 mg PO HS buspirone 10 mg tablet 15 mg PO BID rosuvastatin 20 mg tablet 20 mg PO DAILY Qty: 90 1RF lisinopril 10 mg tablet 10 mg PO DAILY Qty: 90 1RF levothyroxine 88 mcg tablet 88 mcg PO DAILY Qty: 90 1RF Date of admission: 04/18/24 02:39 Primary Care Provider: Flaco Berg Admitting Provider: Leslie Wynne Attending physician on admission: Leslie Wynne Condition: Stable Quality VTE Prophylaxis VTE prophylaxis: pharmacologic ordered Hospitalist MIPS Heart Failure (Exclusion) Patient has history of Heart Transplant or Left Ventricular Assistive Device?: No IF YES, STOP HERE Heart Failure (Qualifier) Patient has current or prior documentation of LVEF less than or equal to 40%, or mod/servere depressed LVSF?: No IF NO, STOP HERE
== END 2024-04-19 22:40 ==
LOC: ANHED 04-18 02:26 → ANHIMU 04-18 03:23 → ANH3MED 04-18 22:21
PROVIDERS: Nurse Practitioner Acute Care; Admitting Provider Internal Medicine; Emergency Provider Emergency Medicine; PCP Family Medicine; Visit Provider Internal Medicine
DX: T42.4X1A Poisoning by benzodiazepines, accidental (unintentional), initial encounter (principal); T45.0X1A Poisoning by antiallergic and antiemetic drugs, accidental (unintentional), initial encounter; R79.89 Other specified abnormal findings of blood chemistry; F31.10 Bipolar disorder, current episode manic without psychotic features, unspecified; R01.1 Cardiac murmur, unspecified; I10 Essential (primary) hypertension; E78.2 Mixed hyperlipidemia; E03.9 Hypothyroidism, unspecified; R74.01 Elevation of levels of liver transaminase levels; R29.6 Repeated falls; Z87.891 Personal history of nicotine dependence; Z20.822 Contact with and (suspected) exposure to COVID-19; Z66 Do not resuscitate
CPT/HCPCS: 36415; 70450; 71045; 71250; 72125; 80053; 80143; 80179; 80307; 81001; 82077; 82140; 82550; 82948; 83605; 83690; 83735; 84145; 84443; 84484; 85025; 85610; 85730; 87637; 93005; 96372; 99285; A9270; C8929; G0378; J1650; Q9957

== ENCOUNTER 2024-05-16 06:37 | Emergency (ER) | payer OTHER, SELFPAY ==
--- NOTE | ~2024-05-16 | XR_ITS ---
EXAMINATION: XR chest 1V portable DATE: 05/16/2024 09:28 INDICATION: Chest pain. TECHNIQUE: A single frontal view of the chest was obtained. COMPARISON: Chest single view 04/17/2024, chest CT 04/18/2024 FINDINGS: There is a nodule in right upper lobe. A calcified left lung nodule is consistent with old granulomatous disease. No pleural effusion or pneumothorax. The heart size is normal. IMPRESSION: 1. Nodule in right lung upper lobe suspicious for primary bronchogenic carcinoma. CT-guided biopsy is recommended. Reviewed, dictated and finalized at location A. ISION PRINTING WORKER IMPRESSION: 1. Nodule in right lung upper lobe suspicious for primary bronchogenic carcinom a. CT-guided biopsy is recommended.
--- NOTE | ~2024-05-16 | CT_ITS ---
EXAMINATION:CT diagnostic chest w con DATE: 05/16/2024 10:31 INDICATION: Lung cancer. TECHNIQUE: Computed tomography (CT) of the chest was performed with 75 mL Omnipaque 350 intravenous c ontrast. Automated exposure control and iterative reconstruction technique were employed. The dose-le ngth product (DLP) was 119.57 mGy-cm. COMPARISON: Chest CT 04/18/2024 FINDINGS: There is an 11 mm nodule in right lung upper lobe. There is a small right posterior diaphra gmatic hernia containing fat. There is mild atelectasis in lingula. No pleural effusion. The heart si ze is normal. No pericardial effusion. There are cysts in the right kidney measuring up to 17 mm. The re is severe thoracic spondylosis. There is mild chronic anterior wedging of multiple mid thoracic ve rtebral bodies. IMPRESSION: 1. 11 mm pulmonary nodule suspicious for primary bronchogenic carcinoma, unchanged from 04/18/2024. CT- guided biopsy is recommended. Reviewed, dictated and finalized at location A. M CONDITIONER OPERATOR IMPRESSION: 1. 11 mm pulmonary nodule suspicious for primary bronchogenic carcinoma, unchan ged from 04/18/2024. CT-guided biopsy is recommended.
[2024-05-16 06:44] VITALS: BP 128/66; PULSE 66; RESP 16; TEMP 36.1; O2SAT 100
[2024-05-16 08:18] LABS: Add Urine Microscopic? YES; Appearance Urine Turbid (Clear); Bacteria Urine 4+ /hpf; Bilirubin Urine 1+ (Negative); Blood Urine Negative (Negative); Color Urine Dark Yellow (Yellow); Glucose Urine UA Negative (Negative); Ketones Urine Trace mg/dL (Negative); Leukocyte Esterase Ur 3+ LEU/UL (Negative); Need Manual Microscopic Reviewed; Nitrate Urine Negative (Negative); Non Pathogenic Casts 0-2; Protein Urine 1+ mg/dL (Negative); Squamous Epithelial Cell Urine Occasional /hpf (Few); WBC Urine >100 /hpf (0-3)
--- NOTE | 2024-05-16 08:25 | ECG_ITS ---
Test Date: 2024-05-16 08:56:06 Measurements Intervals [place] Rate: 66 P: 33 ME: 164 QRS: -39 QRSD: 98 T: 171 QT: 436 QTc: 460 Interpretive Statements SINUS RHYTHM LEFT AXIS DEVIATION BORDERLINE R WAVE PROGRESSION, ANTERIOR LEADS ST-T WAVE ABNORMALITY IN ANTEROLAT/HIGH LAT LEADS- CONSIDER ISCHEMIA BASELINE ARTIFACT- I, II, AVR ABNORMAL ECG Compared to ECG 04/18/2024 02:16:27 ST-T WAVE ABNORMALITY NOW PRESENT Electronically Signed On 05-16-2024 09:10:09 INTERNATIONAL ACCOUNT MANAGER by Santosh Junior D.O.
[2024-05-16 08:29] LABS: Influenza A QL RT-PCR Negative (Negative); Influenza B QL RT-PCR Negative (Negative); RSV RNA, RT-PCR Negative (Negative); SARS-CoV-2 RNA PCR Negative (Negative)
[2024-05-16 08:48] LABS: Basophils Percent Auto 0.2 % (0.2-1.2); Eosinophils Percent Auto 0.3 % (0-4.4); Hematocrit 39.4 % (37.0-47.0); Hemoglobin 13.4 g/dL (12.0-15.0); Immature Granulocyte Absolute 0.03 K/mm3 (0.00-0.031); Immature Granulocyte Percent A 0.3 % (0-0.5); Lymphocytes Absolute Auto 1.56 K/mm3 (0.9-3.2); Lymphocytes Percent Auto 17.4 % (18.3-44.2); Mean Corpuscular Hemoglobin 30.5 pg (26-34); Mean Corpuscular Volume 89.5 fl (80-100); Monocytes Absolute Auto 0.6 K/mm3 (0.1-0.6); Monocytes Percent Auto 6.2 % (2.6-8.5); Neutrophils Absolute Auto 6.8 K/mm3 (1.3-6.7); Neutrophils Percent Auto 75.6 % (45.5-73.1); Platelet Count Result 260 k/mm3 (150-375); Red Cell Distribution Width 14.6 % (11.5-14.5)
[2024-05-16 08:59] LABS: Alanine Aminotransferase 57 U/L (6-35); Albumin Level 3.3 g/dL (3.5-5.1); Alkaline Phosphatase 159 U/L (38-126); Anion Gap 6 mmol/L (4-12); Aspartate Amino Transferase 34 U/L (14-36); Bilirubin,Total 0.7 mg/dL (0.2-1.3); Blood Urea Nitrogen 21 mg/dL (7-17); Carbon Dioxide 26 mmol/L (22-30); Chloride 106 mmol/L (98-107); Estimated Glomerular Filt Rate > 60; Glucose 112 mg/dL (65-110); Potassium 3.1 mmol/L (3.4-5.0); Sodium 138 mmol/L (137-145)
[2024-05-16 09:11] LABS: Troponin I 0.016 ng/mL (0.000-0.034)
--- NOTE | 2024-05-16 11:15 | ED.GENADULT ---
HPI - General Adult General Chief complaint: Upper Respiratory Infection Stated complaint: pain all over, r ear, chills Time Seen by Provider: 05/16/24 07:28 Source: patient and family Mode of arrival: ambulatory Limitations: no limitations History of Present Illness HPI narrative: 74-year-old with a history of hypertension hypothyroidism, anxiety depression, mild dementia was brought in by daughter with the complaints of lower extremity pain soon after she got into the room here in the ER she started having left-sided chest pain. She denies any fever or chills. No history of shortness of breath or cough fever chills. Onset (ago): day(s) (1) Location: chest and lower extremity Radiation: non-radiation Severity: mild Quality: aching Relieving factors: none Exacerbating factors: none Associated symptoms: denies other symptoms Related Data Home Medications ?Medication ?Instructions ?Recorded ?Confirmed ?Last Taken ?Type clonazepam 0.5 mg tablet (Klonopin) 0.5 mg PO TID PRN anxiety 12/25/19 04/18/24 10/30/20 History olanzapine 10 mg tablet 10 mg PO HS 12/25/19 04/18/24 10/30/20 History buspirone 10 mg tablet 15 mg PO BID 09/24/23 04/18/24 Unknown History trazodone 50 mg tablet 25 mg PO QHS PRN insomnia 03/28/24 04/18/24 Unknown History Allergies Allergy/AdvReac Type Severity Reaction Status Date / Time chlorpromazine (From Allergy Severe Other Verified 04/18/24 08:56 Thorazine) Review of Systems Review of Systems: All systems reviewed & are unremarkable except as noted in HPI and below Constitutional: Constitutional: Reports no additional constitutional complaints Eyes: Eyes: Reports no additional eye complaints ENT: Reports system reviewed and no additional complaints, except as documented Cardiovascular: Cardiovascular: Reports as per HPI Respiratory: Respiratory: Reports no additional respiratory complaints Gastrointestinal: Gastrointestinal: Reports no additional gastrointestinal complaints Musculoskeletal: Musculoskeletal: Reports no additional musculoskeletal complaints Integumentary/Breasts: Skin/Breast: Reports system reviewed and no additional complaints, except as docu PMFSH Past Medical History Medical History Transaminitis Benign essential hypertension Bipolar I disorder, most recent episode (or current) manic Hypothyroidism (acquired) Mixed hyperlipidemia Family History Family History Father Acute myocardial infarction Mother Acute myocardial infarction Suicide Daughter Suicide Social History Social History Social History: Caffeine-half calf coffee Smoking status: Former smoker Second hand tobacco smoke exposure: No Smoking end date: 04/12/09 Alcohol intake: never Substance use: never Substance use type: does not use Do You Feel Safe in your Home?: Yes Lack of Transportation: No Lack of Food: Never True Current Housing: I Have Housing Concerned About Future Housing: No Difficulty Paying Gas/Electric Bills: No Difficulty Paying for Meds: No Currently Unemployed: No Education: High School Diploma/GED Difficulty w/ Childcare or Family Care: No Gender identity (if verbalized by the patient): Female Spiritual care concerns: No Exam Narrative: GENERAL: Well-appearing, well-nourished, and in no acute distress. HEAD: Normocephalic, atraumatic. EYES: PERRLA and EOMI. ENT: Nares clear, no rhinorrhea or epistaxis. Mucous membranes moist. NECK: Supple. CHEST: Clear to auscultation. No respiratory distress. HEART: Regular rate and rhythm. No murmur heard. Normal peripheral pulses. ABDOMEN: Soft, nontender, nondistended, normal active bowel sounds. EXTREMITIES: Normal range of motion. No edema. SKIN: Warm, dry, no rash. NEURO: No focal deficits. Alert and oriented x3. PSYCH: Normal mood and affect. Course Course Emergency Course: Patient comfortably resting she has no pain at this time. I discussed lab work, EKG and CT findings with the patient's daughter about her CT findings advised her to follow-up with her primary doctor. Vital Signs Vital signs: Vital Signs Temperature 36.1 C L 05/16/24 06:44 Pulse Rate 66 05/16/24 06:44 Respiratory Rate 16 05/16/24 06:44 Blood Pressure 128/66 05/16/24 06:44 Pulse Oximetry 100 05/16/24 06:44 Temperature 36.1 C L 05/16/24 06:44 Pulse Rate 66 05/16/24 06:44 Respiratory Rate 16 05/16/24 06:44 Blood Pressure 128/66 05/16/24 06:44 Pulse Oximetry 100 05/16/24 06:44 Medical Decision Making Differential Diagnosis Differential Diagnosis: Anxiety, dementia, atypical chest pain, pneumonia Medical Records Medical records reviewed: Yes I reviewed the external patient's medical records. Vital Signs Vital Signs: Vital Signs Temperature 36.1 C L 05/16/24 06:44 Pulse Rate 66 05/16/24 06:44 Respiratory Rate 16 05/16/24 06:44 Blood Pressure 128/66 05/16/24 06:44 Pulse Oximetry 100 05/16/24 06:44 Temperature 36.1 C L 05/16/24 06:44 Pulse Rate 66 05/16/24 06:44 Respiratory Rate 16 05/16/24 06:44 Blood Pressure 128/66 05/16/24 06:44 Pulse Oximetry 100 05/16/24 06:44 Lab Data Lab results reviewed: Yes I reviewed the patient's lab results. 05/16/24 08:42 05/16/24 08:42 Labs: Lab Results 05/16/24 05/16/24 Range/Units 07:46 08:42 WBC 9.0 (4.5-10.0) K/mm3 RBC 4.40 (4.2-5.4) M/mm3 Hgb 13.4 (12.0-15.0) g/dL Hct 39.4 (37.0-47.0) % MCV 89.5 (80-100) fl MCH 30.5 (26-34) pg MCHC 34.0 (32-36) g/dl RDW 14.6 H (11.5-14.5) % Plt Count 260 (150-375) k/mm3 MPV 11.0 H (7.4-10.4) fl Immature Gran % (Auto) 0.3 (0-0.5) % Neut % (Auto) 75.6 H (45.5-73.1) % Lymph % (Auto) 17.4 L (18.3-44.2) % [place] % (Auto) 6.2 (2.6-8.5) % Eos % (Auto) 0.3 (0-4.4) % Baso % (Auto) 0.2 (0.2-1.2) % Lymph # (Auto) 1.56 (0.9-3.2) K/mm3 [place] # (Auto) 0.6 (0.1-0.6) K/mm3 Eos # (Auto) 0.0 (0-0.3) K/mm3 Baso # (Auto) 0.0 (0.0-0.1) K/mm3 Abs Immat Gran (auto) 0.03 (0.00-0.031) K/mm3 Absolute Neuts (auto) 6.8 H (1.3-6.7) K/mm3 Absolute Nucleated RBC 0.000 (0.0-0.012) K/mm3 Nucleated RBC % 0.0 (0.0-0.2) % Sodium 138 (137-145) mmol/L Potassium 3.1 L (3.4-5.0) mmol/L Chloride 106 (98-107) mmol/L Carbon Dioxide 26 (22-30) mmol/L Anion Gap 6 (4-12) mmol/L BUN 21 H (7-17) mg/dL Creatinine 0.54 L (0.7-1.0) mg/dL Estim Creat Clear Calc Not Reportable Estimated GFR > 60 (59 - ) Glucose 112 H (65-110) mg/dL Calcium 9.0 (8.4-10.2) mg/dL Total Bilirubin 0.7 (0.2-1.3) mg/dL AST 34 (14-36) U/L ALT 57 H (6-35) U/L Alkaline Phosphatase 159 H (38-126) U/L Troponin I 0.016 (0.000-0.034) ng/mL Total Protein 6.0 L (6.3-8.2) g/dL Albumin 3.3 L (3.5-5.1) g/dL Urine Color Dark yellow (Yellow) Urine Appearance Turbid H (Clear) Urine pH 6.0 (5.0-9.0) Ur Specific [place] 1.020 (1.001-1.035) Urine Protein 1+ H (Negative) mg/dL Urine Glucose (UA) Negative (Negative) mg/dL Urine Ketones Trace H (Negative) mg/dL Ur Blood (Man) Negative (Negative) Urine Nitrate Negative (Negative) Urine Bilirubin 1+ H (Negative) Urine Urobilinogen 1.0 (<2.0) mg/dL Add Ur Microanalysis Reviewed Leukocyte Esterase Rfl 3+ H (Negative) SARA/UL Urine RBC 6-10 H (0-2) /hpf Urine WBC >100 H (0-3) /hpf Ur Squamous Epith Cells Occasional (Few) /hpf Urine Bacteria 4+ /hpf Urine Casts 0-2 Influenza A (RT-PCR) Negative (Negative) Influenza B (RT-PCR) Negative (Negative) RSV (RT-PCR) Negative (Negative) SARS-CoV-2 RNA (RT-PCR) Negative (Negative) Imaging Data Radiologist's impression: ITS Impressions Chest X-Ray 05/16/24 09:40 IMPRESSION: 1. Nodule in right lung upper lobe suspicious for primary bronchogenic carcinoma. CT-guided biopsy is recommended. Chest CT 05/16/24 10:31 IMPRESSION: 1. 11 mm pulmonary nodule suspicious for primary bronchogenic carcinoma, unchanged from 04/18/2024. CT-guided biopsy is recommended. ECG Data EKG #1: ECG completion date: 05/16/24 ECG completion time: 08:56 EKG Interpretation: normal rate (66), sinus rhythm, no ectopy, no ST changes and left axis Discharge Plan Discharge Clinical Impression: Atypical chest pain, Lung mass Patient Disposition: Home, Self-Care Condition: Stable Instructions: Antibiotic Form, Chest Pain (DC), Lung Cancer (DC) Additional Instructions: Continue home medications, recommended due to follow-up with your primary doctor and peanut salter Patient Language: Bulgarian Prescriptions: No Action trazodone 50 mg tablet 25 mg PO QHS PRN (Reason: insomnia) clonazepam [Klonopin] 0.5 mg tablet 0.5 mg PO TID PRN (Reason: anxiety) olanzapine 10 mg tablet 10 mg PO HS buspirone 10 mg tablet 15 mg PO BID rosuvastatin 20 mg tablet 20 mg PO DAILY Qty: 90 1RF lisinopril 10 mg tablet 10 mg PO DAILY Qty: 90 1RF levothyroxine 88 mcg tablet 88 mcg PO DAILY Qty: 90 1RF Follow-up/Referrals: James Morales MD [Primary Care Provider] - James Abdalla MD [Physician] - Time of Disposition: 11:29
--- NOTE | 2024-05-16 11:15 | PC.NURSE ---
Dr Holland in room to speak with daughter and patient. States need to follow-up with emergency department nurse for her nodule in her right lung. Dr Holland states the reading appears to look cancerous
== END 2024-05-16 11:48 | disposition home or self-care (01) ==
PROVIDERS: Emergency Provider Family Medicine; PCP Emergency Medicine
DX: R07.89 Other chest pain (principal); R91.8 Other nonspecific abnormal finding of lung field; R94.31 Abnormal electrocardiogram [ECG] [EKG]; R82.998 Other abnormal findings in urine; Z20.822 Contact with and (suspected) exposure to COVID-19; I10 Essential (primary) hypertension; E03.9 Hypothyroidism, unspecified; E78.5 Hyperlipidemia, unspecified; F31.9 Bipolar disorder, unspecified
CPT/HCPCS: 36415; 71045; 71260; 80053; 81001; 84484; 85025; 87086; 87637; 93005; 99284; Q9967

== ENCOUNTER 2024-07-14 09:17 | Outpatient (CLI) | payer OTHER, SELFPAY ==
--- NOTE | 2024-07-04 15:21 | PC.NURSE ---
Pre Radiology instructions Report to the outpatient saad fitzpatrick on date __0900am___ at time __07/14/24 for procedure Time: _1100am___ YOU MAY BE MONITORED AT HOSPITAL FOR UP TO 4 HOURS AFTER YOUR PROCEDURE. A visitor will be allowed to accompany the patient into the hospital. You and your visitor will be asked to self-screen and do not enter if you have any COVID symptoms. A mask is OPTIONAL within the hospital. Patients are to have no food or drink 6 hours prior to procedure time Driving will be restricted after the procedure, you must have a person to drive you home. Labs will be drawn in preop area and once reviewed, you will be taken to radiology area for procedure. When the procedure is completed, you will be taken to outpatient where you will be monitored for several hours. You may have one visitor in this area. Other than holding anti-coagulants, patient may take other medication(s) as scheduled. Prior to your appointment date patients are instructed to hold anti-coagulants after discussing with ordering provider to stop. If unable to discontinue anti-coagulants please notify radiologist. ? No aspirin or warfarin (Coumadin) for 7 days prior to the procedure. ? No clopidogrel (Plavix), ticagrelor (Brilinta), prasugrel (Effient) or dabigatran (Pradaxa) for 5 days prior to the procedure. ? No rivaroxaban (Xarelto), apixaban (Eliquis), dipyridamole (Aggrenox or Persantine) or cilostazol (Pletal) for 2 days prior to the procedure. Medications to discontinue per physician: _None Date to take last dose: None Please leave all valuables, including medications, at home the day of procedure. The hospital will not accept responsibility for valuables. Wear comfortable, loose fitting clothing.? Follow any additional instructions given to you from ordering provider. Telephone instructions given to __Adelaide Danielle and asked if any additional questions and then verbalized understanding. Patient advised to call scheduling provider office or registration scheduling [phone] if any additional questions.
[2024-07-04 15:30] VITALS: BMI 26.7
[2024-07-14] VITALS (10 sets, daily range): BP systolic 106–143; BP diastolic 54–82; PULSE 68–96; RESP 18; TEMP 36.1; O2SAT 95–100
--- NOTE | ~2024-07-14 | XR_ITS ---
EXAMINATION: XR chest 1V portable DATE: 07/14/2024 14:19 INDICATION: Status post right lung biopsy TECHNIQUE: frontal view of the chest was obtained. COMPARISON: Chest radiograph dated 07/14/2024 at 12:23 PM FINDINGS: Again seen is a small nodular opacity lateral right midlung zone corresponding to the biopsied nodule of concern. No pulmonary edema, pleural effusion or pneumothorax. The cardiomediastinal silhouette i s normal. IMPRESSION: 1. No pneumothorax or other acute cardiopulmonary disease post percutaneous biopsy of a right upper l obe nodule the lateral right midlung which is concerning for primary bronchogenic carcinoma. Reviewed, dictated and finalized at location A. IMPRESSION: 1. No pneumothorax or other acute cardiopulmonary disease post percutaneous bio psy of a right upper lobe nodule the lateral right midlung which is concerning for primary bronchogenic carcinoma.
--- NOTE | ~2024-07-14 | XR_ITS ---
EXAMINATION: XR chest 1V portable DATE: 07/14/2024 12:26 INDICATION: Status post right percutaneous lung biopsy TECHNIQUE: frontal view of the chest was obtained. COMPARISON: Chest radiograph dated 07/14/2024 FINDINGS: Nodular airspace opacity lateral right midlung zone corresponding to the biopsied right upper lobe no dule of concern. Lungs are otherwise clear with no other airspace opacities, pulmonary edema, pleural effusion or pneumothorax. The cardiomediastinal silhouette is normal. IMPRESSION: 1. No pneumothorax or other acute cardiopulmonary disease. 2. Biopsied nodule at the lateral right midlung zone which is concerning for primary bronchogenic car cinoma. Reviewed, dictated and finalized at location A. IMPRESSION: 1. No pneumothorax or other acute cardiopulmonary disease. 2. Biopsied nodule at the lateral right midlung zone which is concerning for pr imary bronchogenic carcinoma.
--- NOTE | ~2024-07-14 | XR_ITS ---
EXAMINATION: XR chest 1V 07/14/2024 11:27 INDICATION: Post lung biopsy PROCEDURE: AP view of the chest COMPARISON: No prior studies for comparison. FINDINGS: The lungs are clear. The cardiomediastinal silhouette is within normal limits. There are no pleural effusions. There is no pneumothorax suspected. IMPRESSION: 1: NO ACUTE CARDIOPULMONARY DISEASE. Reviewed, dictated and finalized at location A.
--- NOTE | ~2024-07-14 | CT_ITS ---
EXAMINATION: CT biopsy lung w/imaging DATE: 07/14/2024 11:22 INDICATION: Left millimeter right upper lobe nodule TECHNIQUE: The procedure including the risks and benefits was discussed with the patient. Risks discu ssed included infection, approximately 1/20 risk of symptomatic hemorrhage beyond mild hemoptysis, ap proximately 1/3 risk of pneumothorax, and approximately 1/10 risk of pneumothorax severe enough to wa rrant chest tube placement. The patient understood the risks and agreed to proceed. The patient was p laced in the left lateral decubitus position. The skin overlying the lateral left chest was prepped and draped in sterile fashion. Anesthetic was administered with 1% lidocaine subcutaneously. A 19 g auge outer needle was advanced under CT guidance to the lesion of interest. A 20 gauge core biopsy ne edle was then used to obtain 3 core biopsy specimens. The needle was removed and the entry site was c leaned and dressed. There were no immediate complications. The dose-length product was 97.64 mGy-cm. FINDINGS: CT images demonstrate the outer needle tip adjacent to the 11 mm left upper lobe pulmonary nodule of concern. IMPRESSION: 1. Successful CT-guided biopsy of the 11 mm left upper lobe pulmonary nodule of concern. Reviewed, dictated and finalized at location A.
--- OUTSIDE RECORDS SUMMARY | 2024-07-14 09:21 | XMS_ITS | Patient Health Record ---
Author Organization [facility] [employer] Address [address] [place] [address] Care Team Providers Care Aviation Electronic Warfare Operator Name Role Phone Flaco Berg DO Primary Care Provider Unavailab Otto Samson Unavailable [phone] Migration, Provider Unavailable Unavailable Prateek eRyes Unavailable [phone] Allergies Allergen (clinical drug ingredient) Drug/Non Drug Allergy documented on EMR Reaction Allergy Type Onset Date Status Thorazine Unknown Drug Allergy 05/25/2023 Active Reason For Referral No Information Medications Medication SIG (Take, Route, Frequency, Duration) Notes Start Date End Date Status Memantine HCl 5 MG 1 tablet Orally twice a day for 30 days Active Lisinopril 10 MG 1 tablet Orally Once a day for 30 day(s) 05/19/2024 Active Atorvastatin Calcium 20 MG 1 tablet Orally Once a day for 30 day(s) 05/19/2024 Active Levothyroxine Sodium 100 MCG 1 tablet in the morning on an empty stomach Orally Once a day for 30 day(s) 05/19/2024 Active Donepezil HCl 5 MG 1 tablet at bedtime Orally Once a day for 30 days Active OLANZapine 15 MG 1 tablet Orally Once a day for 30 days dose increase Active Immunizations Vaccine Route Administration Date Status Comme nts Influenza, high-dose seasona l, quadrivalent, preservative free >65 yrs Unknown 12/02/2022 Administered Pfizer [employer] Covid-19 Vac cine 2nd dose Unknown 06/27/2020 Administered Pfizer [employer] Covid-19 Vac cine 2nd dose Unknown 07/25/2020 Administered Pfizer [employer] Covid-19 Vac cine 2nd dose Unknown 03/03/2021 Administered Pfizer [employer] Covid-19 Vac cine 2nd dose Unknown 05/08/2022 Administered Social History Sex Assigned At : Social History Observation Description Sex Assigned At Female Problems Problem Type SNOMED Code ICD Code Onset Dates Problem Status W/U Status Risk Notes Problem Depressed bipolar I disorder in remission (82709717) Bipolar disorder, in partial remission, most recent episode depressed (F31.75) 4 Active confirmed Problem Generalized anxiety disorder (77541247) Generalized anxiety disorder (F41.1) 4 Active confirmed Problem Primary insomnia (9671825) Primary insomnia (F51.01) 4 Active confirmed Problem Dementia (49908389) Dementia in other diseases classified elsewhere without behavioral disturbance (F02.80) Active confirmed Problem Mild cognitive disorder (540410179) MCI (mild cognitive impairment) (G31.84) Active confirmed Vital Signs Heart Rate 76 /min 06/26/2024 Blood pressure diastolic 72 mm Hg 06/26/2024 Height-cm 147.32 cm 06/26/2024 Weight-kg 59.78 kg 06/26/2024 Height 58.00 in 06/26/2024 Blood pressure systolic 140 mm Hg 06/26/2024 Weight 131.8 lbs 06/26/2024 BMI 27.54 kg/m2 06/26/2024 Encounters Encounter Location Date Provider Diagnosis [employer] [address] [facility] [address] [place] [address] 09/23/2023 Otto Allen Generalized anxiety disorder F41.1 ; Primary insomnia F51.01 and Bipolar disorder, in partial remission, most recent episode depressed F31.75 [employer] [address] [place] [address] 11/04/2023 Otto Allen Generalized anxiety disorder F41.1 ; Bipolar disorder, in partial remission, most recent episode depressed F31.75 and Primary insomnia F51.01 [employer] [address] [place] [address] 02/07/2024 Otto Allen Generalized anxiety disorder F41.1 ; Bipolar disorder, in partial remission, most recent episode depressed F31.75 ; Primary insomnia F51.01 and MCI (mild cognitive impairment) G31.84 [employer] [address] [place] [address] 03/01/2024 Otto Allen Generalized anxiety disorder F41.1 ; Bipolar disorder, in partial remission, most recent episode depressed F31.75 ; Primary insomnia F51.01 and MCI (mild cognitive impairment) G31.84 [facility] [employer] [facility] [address] [place] [address] 03/29/2024 Otto Allen Generalized anxiety disorder F41.1 ; Bipolar disorder, in partial remission, most recent episode depressed F31.75 ; Primary insomnia F51.01 and MCI (mild cognitive impairment) G31.84 [facility] [employer] [facility], [employer] [address] [place] [address] 05/19/2024 Prateek Ellisb Generalized anxiety disorder F41.1 ; Bipolar disorder, in partial remission, most recent episode depressed F31.75 ; Primary insomnia F51.01 and MCI (mild cognitive impairment) G31.84 [facility] [address] [place] [address] 05/30/2024 Otto Allen Generalized anxiety disorder F41.1 ; Bipolar disorder, in partial remission, most recent episode depressed F31.75 ; Primary insomnia F51.01 and MCI (mild cognitive impairment) G31.84 [facility] [employer] [facility] [address] [place] [address] 06/26/2024 Otto Allen Bipolar disorder, in partial remission, most recent episode depressed F31.75 ; Encounter for screening for depression Z13.31 ; Generalized anxiety disorder F41.1 ; Primary insomnia F51.01 and Dementia in other diseases classified elsewhere without behavioral disturbance F02.80 [facility] [employer] [facility] [address] [place] [address] 08/28/2023 Provider Migration [facility] [employer] [facility] [address] [place] [address] 08/29/2023 Provider Migration [facility] [employer] [facility] [address] [place] [address] 04/19/2024 Otto Sherwooda [facility] [employer] [facility] [address] [place] [address] 04/21/2024 Otto Allen Assessments Encounter Date Diagnosis (ICD Code) Assessment Notes Treatment Notes Treatment Clinical Notes Section Notes 09/23/2023 Generalized anxiety disorder (ICD-10 - F41.1) increase buspirone to 10mg twice daily she c/o anxiety reports she is out of clonazepam last couple days, sometimes she forgets she took clonazepam and takes more than 3 a day discussed using a pill container to set out medication increase buspirone to 10mg twice daily 09/23/2023 Primary insomnia (ICD-10 - F51.01) she c/o anxiety reports she is out of clonazepam last couple days, sometimes she forgets she took clonazepam and takes more than 3 a day discussed using a pill container to set out medication increase buspirone to 10mg twice daily 11/04/2023 Generalized anxiety disorder (ICD-10 - F41.1) buspirone 10mg twice daily, clonazepam 0.5mg tid prn 1. Anxiety: - Patient reports feeling nervous, particularly when driving in traffic. - Bupropion was increased to 10 mg twice a day during the last visit, and the patient reports improvement. - Clonazepam is prescribed three times a day for anxiety. Plan: - Continue with the current medications (Bupropion 10 mg twice a day and Clonazepam three times a day) and monitor the patient's anxiety levels. - Encourage the patient to continue using a pill container or dish to organize medications. 2. Bipolar Disorder: - Patient is currently on Olanzapine 10 mg at bedtime for bipolar disorder management. - No reported depressive symptoms during this visit. Plan: - Continue with Olanzapine 10 mg at bedtime and monitor for any changes in mood or symptoms. 3. Insomnia: - Patient reports sleeping well overall but expresses fear of not being able to fall back asleep if awakened. - Currently prescribed Doxepin 10 mg at bedtime for insomnia. Plan: - Continue with Doxepin 10 mg at bedtime and monitor sleep quality. - Encourage the patient to maintain good sleep hygiene practices. Follow-up: - Schedule a follow-up appointment in three months to monitor the patient's progress and make any necessary adjustments to the treatment plan. 03/01/2024 Generalized anxiety disorder (ICD-10 - F41.1) buspirone 10mg twice daily, clonazepam 0.5mg tid prn 1. Anxiety: - Patient reports increased anxiety related to financial concerns and household tasks since her 's . - Currently taking clonazepam twice a day and BuSpar 50 mg twice a day. Plan: - Continue clonazepam and BuSpar as prescribed. - Encourage patient to seek support from her daughter and consider counseling for anxiety management. 2. Insomnia: - Patient reports difficulty sleeping, averaging 4 hours per night, with no daytime napping. - Currently taking olanzapine and doxepin at bedtime. Plan: - Increase olanzapine to 15 mg at bedtime. - Discontinue doxepin. - Start trazodone 50 mg at bedtime for sleep. - Reassess sleep quality in one month. 3. Bipolar disorder: - Patient denies depressive symptoms but reports increased racing thoughts. - Currently on olanzapine for mood stabilization. Plan: - Increase olanzapine to 15 mg at bedtime for mood stabilization and sleep improvement. - Monitor for any signs of mood destabilization or manic symptoms. 4. Poor appetite: - Patient reports inconsistent appetite, eating well one night and not being hungry the next. Plan: - Encourage patient to maintain a regular meal schedule and monitor weight. - Reassess appetite and weight in one month. Follow-up: - Schedule a follow-up appointment in one month to monitor patient's progress on the adjusted medication regimen and overall mental health status. 05/19/2024 Generalized anxiety disorder (ICD-10 - F41.1) 05/30/2024 Generalized anxiety disorder (ICD-10 - F41.1) olanzapine was in [facility]- will request records 06/26/2024 Bipolar disorder, in partial remission, most recent episode depressed (ICD-10 - F31.75) Pt and daughter report Olanzapine has been the best medication for her 02/07/2024 Generalized anxiety disorder (ICD-10 - F41.1) buspirone 10mg twice daily, clonazepam 0.5mg tid prn 1. Anxiety: - Patient reports up and down days with anxiety and forgetfulness. - Currently on clonazepam 0.5 mg TID PRN and buspirone 10 mg BID. Plan: - Increase buspirone to 15 mg BID to help manage anxiety. - Continue clonazepam 0.5 mg TID PRN, but educate the patient on the importance of not taking more than prescribed due to potential risks and addiction. - Reassess anxiety levels in 6 weeks. 2. Mild Cognitive Impairment: - Patient reports forgetfulness, such as losing track of days and forgetting names. - No significant issues with daily living activities or finances. Plan: - Monitor cognitive function during follow-up visits. - Encourage the use of a pill land planner to help with medication adherence. - Educate the patient on the potential cognitive side effects of medications, particularly clonazepam. 3. Bipolar Disorder: - Patient is currently on olanzapine 10 mg at bedtime. - Reports mild depressive symptoms, such as lack of interest in activities. Plan: - Continue olanzapine 10 mg at bedtime. - Monitor mood symptoms during follow-up visits. 4. Insomnia: - Patient reports sleeping well. - Currently on doxepin 10 mg at bedtime. Plan: - Continue doxepin 10 mg at bedtime for sleep. - Reassess sleep quality in 6 weeks. 5. Follow-up: - Schedule a follow-up appointment in 6 weeks to assess the patient's response to the increased buspirone dosage, monitor cognitive function, mood symptoms, and sleep quality. - Notify the pharmacy of the medication changes and ensure they contact the patient when the buspirone is available for pickup. 03/29/2024 Generalized anxiety disorder (ICD-10 - F41.1) buspirone 10mg twice daily, clonazepam 0.5mg tid prn 1. Anxiety: - Patient reports feeling nervous, anxious, and worried all the time. - Currently taking clonazepam 0.5 mg three times a day and BuSpar 15 mg twice a day. - No hallucinations reported. - Sleep has improved since increasing olanzapine. Plan: - Continue clonazepam 0.5 mg three times a day and BuSpar 15 mg twice a day. - Increase olanzapine to 20 mg at bedtime to help with anxiety. - Reevaluate in one month. 2. Sleep disturbance: - Patient reports improved sleep since increasing olanzapine. - Currently taking trazodone at bedtime for sleep. Plan: - Continue trazodone at bedtime for sleep. - Increase olanzapine to 20 mg at bedtime to further help with sleep and anxiety. - Reevaluate in one month. 3. Depression: - Patient reports feeling depressed, but not sad or hopeless. - Experiences anxiety and worry about managing household tasks. Plan: - Monitor depression symptoms during follow-up visits. - Encourage patient to seek support from her daughter and consider counseling or therapy if needed. - Reevaluate in one month. 6. Bipolar disorder : - Patient reports occasional mood swings and energy fluctuations. - Denies any significant elevated moods or excessive spending during shopping. Plan: - Continue monitoring bipolar symptoms during follow-up visits. - Reevaluate in one month. 05/30/2024 Bipolar disorder, in partial remission, most recent episode depressed (ICD-10 - F31.75) olanzapine 20mg hs was in [facility]- will request records 02/07/2024 Bipolar disorder, in partial remission, most recent episode depressed (ICD-10 - F31.75) olanzapine 10mg hs 1. Anxiety: - Patient reports up and down days with anxiety and forgetfulness. - Currently on clonazepam 0.5 mg TID PRN and buspirone 10 mg BID. Plan: - Increase buspirone to 15 mg BID to help manage anxiety. - Continue clonazepam 0.5 mg TID PRN, but educate the patient on the importance of not taking more than prescribed due to potential risks and addiction. - Reassess anxiety levels in 6 weeks. 2. Mild Cognitive Impairment: - Patient reports forgetfulness, such as losing track of days and forgetting names. - No significant issues with daily living activities or finances. Plan: - Monitor cognitive function during follow-up visits. - Encourage the use of a pill land planner to help with medication adherence. - Educate the patient on the potential cognitive side effects of medications, particularly clonazepam. 3. Bipolar Disorder: - Patient is currently on olanzapine 10 mg at bedtime. - Reports mild depressive symptoms, such as lack of interest in activities. Plan: - Continue olanzapine 10 mg at bedtime. - Monitor mood symptoms during follow-up visits. 4. Insomnia: - Patient reports sleeping well. - Currently on doxepin 10 mg at bedtime. Plan: - Continue doxepin 10 mg at bedtime for sleep. - Reassess sleep quality in 6 weeks. 5. Follow-up: - Schedule a follow-up appointment in 6 weeks to assess the patient's response to the increased buspirone dosage, monitor cognitive function, mood symptoms, and sleep quality. - Notify the pharmacy of the medication changes and ensure they contact the patient when the buspirone is available for pickup. 03/29/2024 Bipolar disorder, in partial remission, most recent episode depressed (ICD-10 - F31.75) olanzapine 20mg hs 1. Anxiety: - Patient reports feeling nervous, anxious, and worried all the time. - Currently taking clonazepam 0.5 mg three times a day and BuSpar 15 mg twice a day. - No hallucinations reported. - Sleep has improved since increasing olanzapine. Plan: - Continue clonazepam 0.5 mg three times a day and BuSpar 15 mg twice a day. - Increase olanzapine to 20 mg at bedtime to help with anxiety. - Reevaluate in one month. 2. Sleep disturbance: - Patient reports improved sleep since increasing olanzapine. - Currently taking trazodone at bedtime for sleep. Plan: - Continue trazodone at bedtime for sleep. - Increase olanzapine to 20 mg at bedtime to further help with sleep and anxiety. - Reevaluate in one month. 3. Depression: - Patient reports feeling depressed, but not sad or hopeless. - Experiences anxiety and worry about managing household tasks. Plan: - Monitor depression symptoms during follow-up visits. - Encourage patient to seek support from her daughter and consider counseling or therapy if needed. - Reevaluate in one month. 6. Bipolar disorder : - Patient reports occasional mood swings and energy fluctuations. - Denies any significant elevated moods or excessive spending during shopping. Plan: - Continue monitoring bipolar symptoms during follow-up visits. - Reevaluate in one month. 06/26/2024 Encounter for screening for depression (ICD-10 - Z13.31) 03/01/2024 Bipolar disorder, in partial remission, most recent episode depressed (ICD-10 - F31.75) olanzapine 10mg hs 1. Anxiety: - Patient reports increased anxiety related to financial concerns and household tasks since her 's . - Currently taking clonazepam twice a day and BuSpar 50 mg twice a day. Plan: - Continue clonazepam and BuSpar as prescribed. - Encourage patient to seek support from her daughter and consider counseling for anxiety management. 2. Insomnia: - Patient reports difficulty sleeping, averaging 4 hours per night, with no daytime napping. - Currently taking olanzapine and doxepin at bedtime. Plan: - Increase olanzapine to 15 mg at bedtime. - Discontinue doxepin. - Start trazodone 50 mg at bedtime for sleep. - Reassess sleep quality in one month. 3. Bipolar disorder: - Patient denies depressive symptoms but reports increased racing thoughts. - Currently on olanzapine for mood stabilization. Plan: - Increase olanzapine to 15 mg at bedtime for mood stabilization and sleep improvement. - Monitor for any signs of mood destabilization or manic symptoms. 4. Poor appetite: - Patient reports inconsistent appetite, eating well one night and not being hungry the next. Plan: - Encourage patient to maintain a regular meal schedule and monitor weight. - Reassess appetite and weight in one month. Follow-up: - Schedule a follow-up appointment in one month to monitor patient's progress on the adjusted medication regimen and overall mental health status. 05/19/2024 Bipolar disorder, in partial remission, most recent episode depressed (ICD-10 - F31.75) 11/04/2023 Bipolar disorder, in partial remission, most recent episode depressed (ICD-10 - F31.75) olanzapine 10mg hs 1. Anxiety: - Patient reports feeling nervous, particularly when driving in traffic. - Bupropion was increased to 10 mg twice a day during the last visit, and the patient reports improvement. - Clonazepam is prescribed three times a day for anxiety. Plan: - Continue with the current medications (Bupropion 10 mg twice a day and Clonazepam three times a day) and monitor the patient's anxiety levels. - Encourage the patient to continue using a pill container or dish to organize medications. 2. Bipolar Disorder: - Patient is currently on Olanzapine 10 mg at bedtime for bipolar disorder management. - No reported depressive symptoms during this visit. Plan: - Continue with Olanzapine 10 mg at bedtime and monitor for any changes in mood or symptoms. 3. Insomnia: - Patient reports sleeping well overall but expresses fear of not being able to fall back asleep if awakened. - Currently prescribed Doxepin 10 mg at bedtime for insomnia. Plan: - Continue with Doxepin 10 mg at bedtime and monitor sleep quality. - Encourage the patient to maintain good sleep hygiene practices. Follow-up: - Schedule a follow-up appointment in three months to monitor the patient's progress and make any necessary adjustments to the treatment plan. 09/23/2023 Bipolar disorder, in partial remission, most recent episode depressed (ICD-10 - F31.75) she c/o anxiety reports she is out of clonazepam last couple days, sometimes she forgets she took clonazepam and takes more than 3 a day discussed using a pill container to set out medication increase buspirone to 10mg twice daily 11/04/2023 Primary insomnia (ICD-10 - F51.01) doxepin 10mg hs 1. Anxiety: - Patient reports feeling nervous, particularly when driving in traffic. - Bupropion was increased to 10 mg twice a day during the last visit, and the patient reports improvement. - Clonazepam is prescribed three times a day for anxiety. Plan: - Continue with the current medications (Bupropion 10 mg twice a day and Clonazepam three times a day) and monitor the patient's anxiety levels. - Encourage the patient to continue using a pill container or dish to organize medications. 2. Bipolar Disorder: - Patient is currently on Olanzapine 10 mg at bedtime for bipolar disorder management. - No reported depressive symptoms during this visit. Plan: - Continue with Olanzapine 10 mg at bedtime and monitor for any changes in mood or symptoms. 3. Insomnia: - Patient reports sleeping well overall but expresses fear of not being able to fall back asleep if awakened. - Currently prescribed Doxepin 10 mg at bedtime for insomnia. Plan: - Continue with Doxepin 10 mg at bedtime and monitor sleep quality. - Encourage the patient to maintain good sleep hygiene practices. Follow-up: - Schedule a follow-up appointment in three months to monitor the patient's progress and make any necessary adjustments to the treatment plan. 03/01/2024 Primary insomnia (ICD-10 - F51.01) 1. Anxiety: - Patient reports increased anxiety related to financial concerns and household tasks since her 's . - Currently taking clonazepam twice a day and BuSpar 50 mg twice a day. Plan: - Continue clonazepam and BuSpar as prescribed. - Encourage patient to seek support from her daughter and consider counseling for anxiety management. 2. Insomnia: - Patient reports difficulty sleeping, averaging 4 hours per night, with no daytime napping. - Currently taking olanzapine and doxepin at bedtime. Plan: - Increase olanzapine to 15 mg at bedtime. - Discontinue doxepin. - Start trazodone 50 mg at bedtime for sleep. - Reassess sleep quality in one month. 3. Bipolar disorder: - Patient denies depressive symptoms but reports increased racing thoughts. - Currently on olanzapine for mood stabilization. Plan: - Increase olanzapine to 15 mg at bedtime for mood stabilization and sleep improvement. - Monitor for any signs of mood destabilization or manic symptoms. 4. Poor appetite: - Patient reports inconsistent appetite, eating well one night and not being hungry the next. Plan: - Encourage patient to maintain a regular meal schedule and monitor weight. - Reassess appetite and weight in one month. Follow-up: - Schedule a follow-up appointment in one month to monitor patient's progress on the adjusted medication regimen and overall mental health status. 06/26/2024 Generalized anxiety disorder (ICD-10 - F41.1) olanzapine 05/30/2024 Primary insomnia (ICD-10 - F51.01) was in [facility]- will request records 05/19/2024 Primary insomnia (ICD-10 - F51.01) 02/07/2024 Primary insomnia (ICD-10 - F51.01) doxepin 10mg hs 1. Anxiety: - Patient reports up and down days with anxiety and forgetfulness. - Currently on clonazepam 0.5 mg TID PRN and buspirone 10 mg BID. Plan: - Increase buspirone to 15 mg BID to help manage anxiety. - Continue clonazepam 0.5 mg TID PRN, but educate the patient on the importance of not taking more than prescribed due to potential risks and addiction. - Reassess anxiety levels in 6 weeks. 2. Mild Cognitive Impairment: - Patient reports forgetfulness, such as losing track of days and forgetting names. - No significant issues with daily living activities or finances. Plan: - Monitor cognitive function during follow-up visits. - Encourage the use of a pill land planner to help with medication adherence. - Educate the patient on the potential cognitive side effects of medications, particularly clonazepam. 3. Bipolar Disorder: - Patient is currently on olanzapine 10 mg at bedtime. - Reports mild depressive symptoms, such as lack of interest in activities. Plan: - Continue olanzapine 10 mg at bedtime. - Monitor mood symptoms during follow-up visits. 4. Insomnia: - Patient reports sleeping well. - Currently on doxepin 10 mg at bedtime. Plan: - Continue doxepin 10 mg at bedtime for sleep. - Reassess sleep quality in 6 weeks. 5. Follow-up: - Schedule a follow-up appointment in 6 weeks to assess the patient's response to the increased buspirone dosage, monitor cognitive function, mood symptoms, and sleep quality. - Notify the pharmacy of the medication changes and ensure they contact the patient when the buspirone is available for pickup. 03/29/2024 Primary insomnia (ICD-10 - F51.01) 1. Anxiety: - Patient reports feeling nervous, anxious, and worried all the time. - Currently taking clonazepam 0.5 mg three times a day and BuSpar 15 mg twice a day. - No hallucinations reported. - Sleep has improved since increasing olanzapine. Plan: - Continue clonazepam 0.5 mg three times a day and BuSpar 15 mg twice a day. - Increase olanzapine to 20 mg at bedtime to help with anxiety. - Reevaluate in one month. 2. Sleep disturbance: - Patient reports improved sleep since increasing olanzapine. - Currently taking trazodone at bedtime for sleep. Plan: - Continue trazodone at bedtime for sleep. - Increase olanzapine to 20 mg at bedtime to further help with sleep and anxiety. - Reevaluate in one month. 3. Depression: - Patient reports feeling depressed, but not sad or hopeless. - Experiences anxiety and worry about managing household tasks. Plan: - Monitor depression symptoms during follow-up visits. - Encourage patient to seek support from her daughter and consider counseling or therapy if needed. - Reevaluate in one month. 6. Bipolar disorder : - Patient reports occasional mood swings and energy fluctuations. - Denies any significant elevated moods or excessive spending during shopping. Plan: - Continue monitoring bipolar symptoms during follow-up visits. - Reevaluate in one month. 03/29/2024 MCI (mild cognitive impairment) (ICD-10 - G31.84) monitor 1. Anxiety: - Patient reports feeling nervous, anxious, and worried all the time. - Currently taking clonazepam 0.5 mg three times a day and BuSpar 15 mg twice a day. - No hallucinations reported. - Sleep has improved since increasing olanzapine. Plan: - Continue clonazepam 0.5 mg three times a day and BuSpar 15 mg twice a day. - Increase olanzapine to 20 mg at bedtime to help with anxiety. - Reevaluate in one month. 2. Sleep disturbance: - Patient reports improved sleep since increasing olanzapine. - Currently taking trazodone at bedtime for sleep. Plan: - Continue trazodone at bedtime for sleep. - Increase olanzapine to 20 mg at bedtime to further help with sleep and anxiety. - Reevaluate in one month. 3. Depression: - Patient reports feeling depressed, but not sad or hopeless. - Experiences anxiety and worry about managing household tasks. Plan: - Monitor depression symptoms during follow-up visits. - Encourage patient to seek support from her daughter and consider counseling or therapy if needed. - Reevaluate in one month. 6. Bipolar disorder : - Patient reports occasional mood swings and energy fluctuations. - Denies any significant elevated moods or excessive spending during shopping. Plan: - Continue monitoring bipolar symptoms during follow-up visits. - Reevaluate in one month. 02/07/2024 MCI (mild cognitive impairment) (ICD-10 - G31.84) monitor 1. Anxiety: - Patient reports up and down days with anxiety and forgetfulness. - Currently on clonazepam 0.5 mg TID PRN and buspirone 10 mg BID. Plan: - Increase buspirone to 15 mg BID to help manage anxiety. - Continue clonazepam 0.5 mg TID PRN, but educate the patient on the importance of not taking more than prescribed due to potential risks and addiction. - Reassess anxiety levels in 6 weeks. 2. Mild Cognitive Impairment: - Patient reports forgetfulness, such as losing track of days and forgetting names. - No significant issues with daily living activities or finances. Plan: - Monitor cognitive function during follow-up visits. - Encourage the use of a pill land planner to help with medication adherence. - Educate the patient on the potential cognitive side effects of medications, particularly clonazepam. 3. Bipolar Disorder: - Patient is currently on olanzapine 10 mg at bedtime. - Reports mild depressive symptoms, such as lack of interest in activities. Plan: - Continue olanzapine 10 mg at bedtime. - Monitor mood symptoms during follow-up visits. 4. Insomnia: - Patient reports sleeping well. - Currently on doxepin 10 mg at bedtime. Plan: - Continue doxepin 10 mg at bedtime for sleep. - Reassess sleep quality in 6 weeks. 5. Follow-up: - Schedule a follow-up appointment in 6 weeks to assess the patient's response to the increased buspirone dosage, monitor cognitive function, mood symptoms, and sleep quality. - Notify the pharmacy of the medication changes and ensure they contact the patient when the buspirone is available for pickup. 05/19/2024 MCI (mild cognitive impairment) (ICD-10 - G31.84) monitor 05/30/2024 MCI (mild cognitive impairment) (ICD-10 - G31.84) cont donepezichandlerramos was in [facility]- will request records 06/26/2024 Primary insomnia (ICD-10 - F51.01) improving 03/01/2024 MCI (mild cognitive impairment) (ICD-10 - G31.84) monitor 1. Anxiety: - Patient reports increased anxiety related to financial concerns and household tasks since her 's . - Currently taking clonazepam twice a day and BuSpar 50 mg twice a day. Plan: - Continue clonazepam and BuSpar as prescribed. - Encourage patient to seek support from her daughter and consider counseling for anxiety management. 2. Insomnia: - Patient reports difficulty sleeping, averaging 4 hours per night, with no daytime napping. - Currently taking olanzapine and doxepin at bedtime. Plan: - Increase olanzapine to 15 mg at bedtime. - Discontinue doxepin. - Start trazodone 50 mg at bedtime for sleep. - Reassess sleep quality in one month. 3. Bipolar disorder: - Patient denies depressive symptoms but reports increased racing thoughts. - Currently on olanzapine for mood stabilization. Plan: - Increase olanzapine to 15 mg at bedtime for mood stabilization and sleep improvement. - Monitor for any signs of mood destabilization or manic symptoms. 4. Poor appetite: - Patient reports inconsistent appetite, eating well one night and not being hungry the next. Plan: - Encourage patient to maintain a regular meal schedule and monitor weight. - Reassess appetite and weight in one month. Follow-up: - Schedule a follow-up appointment in one month to monitor patient's progress on the adjusted medication regimen and overall mental health status. 06/26/2024 Dementia in other diseases classified elsewhere without behavioral disturbance (ICD-10 - F02.80) 05/19/2024 Other Assessment and plan reviewed with patient Call for problems with medication, side effects or need for dosage change Compliance issues reviewed Discussed the risks/benefits of this medication Discussed medication side effects Return if symptoms worsen Treatment options reviewed. discussed that it can take weeks to see full therapeutic effects of psychotropic medications. discussed when to seek emergency services. discussed crisis prevention hotline 988. 1. Generalized Anxiety Disorder - EMA-7: 18 - Patient reports anxiety level at 8/10. - Discontinue Zoloft due to bipolar disorder and potential for inducing gelacio. - Re-initiate olanzapine 5 mg at bedtime as a mood stabilizer and to help with sleep. 2. Bipolar Disorder (partial remission, most recent episode depressed) - PHQ-9: 19 - Discontinue Zoloft due to potential for inducing gelacio. - Restart olanzapine 5 mg at bedtime as a mood stabilizer and to help with sleep. - Monitor for mood changes and adjust medications as needed. 3. Primary Insomnia - Discontinue Zoloft. - Restart olanzapine 5 mg at bedtime to help with sleep. - Patient may continue using melatonin as a sleep aid. - Avoid using Benadryl for sleep. 4. Mild Cognitive Impairment - Continue donepezil 5 mg and memantine 5 mg for cognitive support. - Monitor cognitive function and adjust medications as needed. - Note cognitive fluctuations, including childlike behavior and confusion. 5. Follow-up - Keep the appointment with JAVON Menjivar on May 30 for further evaluation and medication adjustments. - Monitor patient's mood, anxiety, sleep, and cognitive function. - Encourage patient to maintain a regular sleep schedule and engage in activities that promote relaxation and stress reduction. 05/30/2024 Other 1. Cognitive issues and possible dementia: - Continue donepezil 5 mg at bedtime for dementia management Plan: - Monitor for any worsening of cognitive symptoms or memory issues - Consider further evaluation for dementia, including neurology consultation if needed 2. Bipolar depression: - Increase olanzapine to 10 mg daily for mood stabilization - Continue quetiapine as prescribed Plan: - Monitor for any signs of gelacio or worsening depression - Follow up in a month to assess response to medication changes 3. Anxiety and sleep issues: - Discontinue alprazolam and Benadryl use - Advise against using melatonin supplement or any [id number] sleep aids due to potential interactions Plan: - Monitor sleep quality and anxiety levels, adjusting medications as needed 4. Medication compliance and safety: Plan: - Reinforce the importance of taking medications as prescribed and not self-medicating - Consider medication management support in an assisted living or supportive environment 5. General health and well-being: - Continue vitamin D, atorvastatin, and lisinopril as prescribed Plan: - Monitor appetite and overall health status - Encourage regular follow-up appointments and communication with healthcare providers 6. Future care planning: Plan: - Review records from [facility] to better understand the patient's needs and previous care - Explore assisted living options and requirements, considering the level of support needed for medication management and daily tasks - Collaborate with the patient and family to develop a comprehensive care plan that addresses both psychiatric and cognitive concerns was in [facility] and [facility]- will request records 06/26/2024 Other cont donepezil, namenda 1. Bipolar Disorder: - Patient has a long-standing history of bipolar disorder, with no manic episodes since 1999. - Stable on olanzapine for 20 years, effectively managing bipolar symptoms. - Recent hospitalization led to a reduction in olanzapine dosage, potentially contributing to instability upon discharge. - Patient's daughter reports observing early signs of bipolar symptoms re-emerging after hospital discharge. - Patient denies current paranoia or hallucinations. - History of psychosis during previous episodes. Plan: - Increase olanzapine from current dose to 15 mg daily - Monitor for improvement in mood stability and any emergence of manic symptoms - Educate patient and family on early warning signs of bipolar episodes - Follow up in one month 2. Dementia: - Recent diagnosis of dementia from a hospital stay. - Current presentation suggests mild cognitive impairment. - Improved cognition and understanding compared to previous visits. - Currently on Namenda and donepezil for dementia management. Plan: - Continue Namenda 5 mg PO twice daily - Continue donepezil 5 mg PO daily - Recommend assisted living facility with supervision, meal preparation, and medication management - Advise against independent use of car or stove due to safety concerns 3. Anxiety and Depression: - Patient reports ongoing anxiety and depression, though symptoms have improved over the past two months. - Anxiety is still triggered by everyday events. - Depression symptoms persist but are less severe than previously reported. Plan: - Continue current medication regimen for anxiety and depression - Encourage stress-reduction techniques - Monitor for changes in anxiety and depressive symptoms at follow-up 4. Insomnia: - Patient reports fitful sleep but notes improvement from 2 hours to 5 hours of sleep per night over the past month. Plan: - Monitor sleep patterns and quality - Reassess need for sleep aids at follow-up appointment Plan Of Treatment Next Appt Details Provider Name:Otto nunez, 07/24/2024 03:45:00 PM, [address], [address], [place], [address], Insurance Providers Payer Name Payer Address Payer Phone Subscriber Number Group Number Insured Name Patient Relationship to Insured Coverage Start Date Coverage End Date [employer] Medicare Replacement/ Advantage - Hmo [address] [place] [phone] [id number] BOB ZULETA Self - patient is the insured Medical (General) History Medical History History ICD Code Problems: Depressed bipolar I disorder i n partial remission Generalized anxiety disorder Primary insomnia , Surgical History Surgery Date(Month/Year) Tonsilectomy/adenoids 04/12/1971
[2024-07-14 09:55] LABS: Mean Platelet Volume 10.6 fl (7.4-10.4); Platelet Count Result 357 k/mm3 (150-375)
[2024-07-14 10:05] LABS: INR 0.9; Prothrombin Time 12.3 Seconds (11.1-14.7)
== END 2024-07-14 16:08 | disposition home or self-care (01) ==
PROVIDERS: PCP Emergency Medicine; Referring Provider Internal Medicine Critical Care Medicine; Visit Provider Radiology Diagnostic Radiology
PROC: BB24ZZZ Computerized Tomography (CT Scan) of Bilateral Lungs (ICD-10-PCS; CPT 32408; principal; 2024-07-14 11:00)
DX: R91.1 Solitary pulmonary nodule (principal)
CPT/HCPCS: 32408; 36415; 71045; 85049; 85610; 88305; 88342

== ENCOUNTER 2024-08-25 08:48 | Outpatient (CLI) | payer OTHER, SELFPAY ==
--- OUTSIDE RECORDS SUMMARY | 2024-08-25 08:59 | XMS_ITS | Clinical Summary ---
Author Organization [facility] Jo[facility] Gleason Address [address] [place] [address] Care Team Providers Care Food Technologist Name Role Phone James Morales MD Primary Care Provider + [phone] Allergies Active Allergy Reactions Criticality Noted Date Comments Chlorpromazine Unknown 05/25/2023 Medications atorvastatin (LIPITOR) 20 mg tablet Take 20 mg by mouth daily. 05/19/2024 Active OLANZapine (ZyPREXA) 20 mg tablet 20 mg daily at bedtime. Active donepeziL (ARICEPT) 5 mg tablet Take 5 mg by mouth daily at bedtime. Active memantine (NAMENDA) 5 mg Tablet Take 5 mg by mouth 2 times daily. Active lisinopriL (PRINIVIL) 10 mg tablet Take 10 mg by mouth daily. 05/19/2024 Active levothyroxine 100 mcg tablet Take 100 mcg by mouth daily in the morning. 05/19/2024 Active Active Problems No known active problems Encounters Date Type Department Care Team Description 08/22/2024 External Device Data [facility]STRACTION Provider, Abstract 08/22/2024 External Device Data [facility]STRACTION Provider, Abstract 08/22/2024 External Device Data [facility]STRA[facility] Provider, Abstract 08/15/2024 3:00 PM CDT Office Visit [facility] Oncology and Hematology - [place] [address] [place] [id number] Sivakumar Finch MD Malignant neoplasm of upper lobe of left lung (CMS/HCC) (Primary Dx) from Last 3 Months Family History Medical History Relation Name Comments No Known Problems Brother No Known Problems Child Heart Disease Father No Known Problems Mother No Known Problems Sister Relation Name Status Comments Brother Alive Child Alive Father Mother Sister Alive Social History Tobacco Use Types Packs/Day Years Used Date Smoking Tobacco: Former Cigarettes 2 42 0 04/12/1967 - 04/12/2009 Smokeless Tobacco: Never Tobacco Cessation:Counseling Given: Not Answered Alcohol Use Standard Drinks/Week Comments Never 0 (1 standard drink = 0.6 oz pur e alcohol) Comments Unknown Sex and Gender Information Value Date Recorded Sex Assigned at Not on file Legal Sex Female 3:09 PM CDT Gender Identity Not on file Sexual Orientation Not on file Last Filed Vital Signs Vital Sign Reading Time Taken Comments Blood Pressure 107/65 08/15/2024 3:21 PM CDT Pulse 99 08/15/2024 3:21 PM CDT Temperature 36.4 C (97.6 F) 08/15/2024 3:21 PM CDT Respiratory Rate 15 08/15/2024 3:21 PM CDT Oxygen Saturation 94% 08/15/2024 3:21 PM CDT Inhaled Oxygen Concentration - - Weight 58.1 kg (128 lb) 08/15/2024 3:21 PM CDT Height 147.3 cm (4' 10 ) 08/15/2024 3:21 PM CDT Body Mass Index 26.75 08/15/2024 3:21 PM CDT Plan of Treatment Upcoming Encounters Date Type Department Care Team (Late st Contact Info) Description 09/20/2024 9:00 AM CDT Office Visit [facility] Cardiovas and Thor Surg at [facility] [address] [id number] [place] [address] Omar Wheat MD [address] [facility] [address] [place] [address] 09/20/2024 10:00 AM CDT Appointment [facility] [address] [place] [address] Health Maintenance Due Date Last Done Comments DTAP/TDAP/TD VACCINES (1 - Tdap) 1967 PNEUMOCOCCAL VACCINE 50+ YEARS (1 of 1 - PCV) 04/20/18 99 ZOSTER VACCINE (1 of 2) 1998 OSTEOPOROSIS SCREENING 2013 RSV VACCINE (60+ or ) (1 - 1-dose 75+ series) 2023 INFLUENZA VACCINE (#1) 2023 12/02/2022 Insurance [facility] Address: [place] [address] Care Teams Food Technologist Relationship Specialty Start Date End Date James Morales MD [address] [place] [address] PCP - General Internal Medicine 08/14/24
--- OUTSIDE RECORDS SUMMARY | 2024-08-25 08:59 | XMS_ITS | Patient Health Record ---
Author Organization [facility] As [employer] Address [address] [place] [address] Care Team Providers Care Civil Laboratory Technician Name Role Phone James Morales MD Primary Care Provider Unavail able Otto Allen Unavailable [phone] Marc Muhammad Unavailable [phone] Migration, Provider Unavailable Unavailable Prateek Reyes Unavailable [phone] Allergies Allergen (clinical drug ingredient) Drug/Non Drug Allergy documented on EMR Reaction Allergy Type Onset Date Status Thorazine Unknown Drug Allergy 05/25/2023 Active Reason For Referral No Information Medications Medication SIG (Take, Route, Frequency, Duration) Notes Start Date End Date Status Memantine HCl 5 MG 1 tablet Orally twic e a day for 30 days Active Atorvastatin Calcium 20 MG 1 tablet Oral ly Once a day for 30 day(s) 05/19/2024 Active Lisinopril 10 MG 1 tablet Orally Once a day for 30 day(s) 05/19/2024 Active OLANZapine 20 MG 1 tablet at bedtime Orally Once a day for 30 days Active Donepezil HCl 5 MG 1 tablet at bedtime Orally Once a day for 30 days Active Levothyroxine Sodium 100 MCG 1 tablet in the morning on an empty stomach Orally Once a day for 30 day(s) 05/19/2024 Active FLUoxetine HCl 20 MG 1 tablet Orally Onc e a day for 30 days 08/21/2024 Active Immunizations Vaccine Route Administration Date Status Comme nts Influenza, high-dose seasona l, quadrivalent, preservative free >65 yrs Unknown 12/02/2022 Administered [employer] Covid-19 Vac cine 2nd dose Unknown 06/27/2020 [...] Problem Depressed bipolar I disorder in remission (80554494) Bipolar disorder, in partial remission, most recent episode depressed (F31.75) 4 Active confirmed Problem Generalized anxiety disorder (09520759) Generalized anxiety disorder (F41.1) 4 Active confirmed Problem Primary insomnia (0234050) Primary insomnia (F51.01) 4 Active confirmed Problem Dementia (05711190) Dementia in other diseases classified elsewhere without behavioral disturbance (F02.80) Active confirmed Problem Mild cognitive disorder (803839295) MCI (mild cognitive impairment) (G31.84) Active confirmed Vital Signs Heart Rate 76 /min 08/21/2024 Blood pressure diastolic 80 mm Hg 08/21/2024 Height-cm 147.32 cm 08/21/2024 Weight-kg 57.24 kg 08/21/2024 Height 58.00 in 08/21/2024 Blood pressure systolic 135 mm Hg 08/21/2024 Weight 126.2 lbs 08/21/2024 BMI 26.37 kg/m2 08/21/2024 Encounters Encounter Location Date Provider Diagnosis [facility] [address] [facility] [address] [place] [address] 09/23/2023 Otto Allen Generalized anxiety disorder F41.1 ; Primary insomnia F51.01 and Bipolar disorder, in partial remission, most recent episode depressed F31.75 [facility] [address] [facility] [address] [place] [address] 11/04/2023 Otto Allen Generalized anxiety disorder F41.1 ; Bipolar disorder, in partial remission, most recent episode depressed F31.75 and Primary insomnia F51.01 [facility] [address] [facility] [address] [place] [address] 02/07/2024 Otto Allen Generalized anxiety disorder F41.1 ; Bipolar disorder, in partial remission, most recent episode depressed F31.75 ; Primary insomnia F51.01 and MCI (mild cognitive impairment) G31.84 [facility] [employer] [facility] [address] [place] [address] 03/01/2024 Otto Allen Generalized anxiety disorder F41.1 ; Bipolar disorder, in partial remission, most recent episode depressed F31.75 ; Primary insomnia F51.01 and MCI (mild cognitive impairment) G31.84 [facility] [employer] [facility] [address] [place] [address] 03/29/2024 Otto Allen Generalized anxiety disorder F41.1 ; Bipolar disorder, in partial remission, most recent episode depressed F31.75 ; Primary insomnia F51.01 and MCI (mild cognitive impairment) G31.84 [facility] [employer] [facility], [employer] [address] [place] [address] 05/19/2024 Prateek Reyes Generalized anxiety disorder F41.1 ; Bipolar disorder, in partial remission, most recent episode depressed F31.75 ; Primary insomnia F51.01 and MCI (mild cognitive impairment) G31.84 [facility] [employer] [facility] [address] [place] [address] 05/30/2024 Otto Allen Generalized anxiety disorder F41.1 ; Bipolar disorder, in partial remission, most recent episode depressed F31.75 ; Primary insomnia F51.01 and MCI (mild cognitive impairment) G31.84 [employer] [facility] [address] [place] [address] 06/26/2024 Otto Allen Bipolar disorder, in partial remission, most recent episode depressed F31.75 ; Encounter for screening for depression Z13.31 ; Generalized anxiety disorder F41.1 ; Primary insomnia F51.01 and Dementia in other diseases classified elsewhere without behavioral disturbance F02.80 [employer] [facility] [address] [place] [address] 07/25/2024 Otto Allen Bipolar disorder, in partial remission, most recent episode depressed F31.75 ; Encounter for screening for depression Z13.31 ; Generalized anxiety disorder F41.1 ; Primary insomnia F51.01 and Dementia in other diseases classified elsewhere without behavioral disturbance F02.80 [facility] [employer] [facility] [address] [place] [address] 08/03/2024 Marc Muhammad MCI (mild cognitive impairment) G31.84 and Dementia in other diseases classified elsewhere without behavioral disturbance F02.80 [facility] [employer] [facility] [address] [place] [address] 08/21/2024 Otto Allen Encounter for screening for depression Z13.31 ; Encounter for screening for cardiovascular disorders Z13.6 ; Bipolar disorder, in partial remission, most recent episode depressed F31.75 ; Generalized anxiety disorder F41.1 ; Primary insomnia F51.01 and Dementia in other diseases classified elsewhere without behavioral disturbance F02.80 [facility] [employer] [facility] [address] [place] [address] 08/28/2023 Provider Migration [facility] [employer] [facility] [address] [place] [address] 08/29/2023 Provider Migration [facility] [employer], [facility] [address] [place] [address] [facility] [employer] [place] [address] [place] [address] 04/21/2024 [facility], [facility] [address] [place] [address] 07/19[facility] [employer], [place] [address] [place] [address] 07/21/2024 [facility], [facility] [address] [place] [address] 08/09/2024 Otto Allen Assessments Encounter Date Diagnosis (ICD [...] any necessary adjustments to the treatment plan. 02/07/2024 Generalized anxiety disorder (ICD-10 - F41.1) [...] - Encourage the use of a pill urban and regional planner to help with medication adherence. - [...] when the buspirone is available for pickup. 03/01/2024 Generalized anxiety disorder (ICD-10 - F41.1) [...] medication regimen and overall mental health status. 03/29/2024 Generalized anxiety disorder (ICD-10 - F41.1) [...] follow-up visits. - Reevaluate in one month. 05/19/2024 Generalized anxiety disorder (ICD-10 - F41.1) 05/30/2024 Generalized anxiety disorder (ICD-10 - F41.1) olanzapine was in [facility]- will request records 06/26/2024 Bipolar disorder, in partial remission, most recent episode depressed (ICD-10 - F31.75) Pt and daughter report Olanzapine has been the best medication for her 07/25/2024 Bipolar disorder, in partial remission, most recent episode depressed (ICD-10 - F31.75) Pt and daughter report Olanzapine has been the best medication for her 08/03/2024 MCI (mild cognitive impairment) (ICD-10 - G31.84) Summary of Findings for Kia Zuleta Age Group: Female, 75 and older Assessment Tools: Creyos Cognitive Battery IQCODE-SR (Informant Questionnaire) IADL (Instrumental Activities of Daily Living) Cognitive and Functional Profile Cognitive Assessment: Attention (Feature Match): Flagged as potentially invalid, but indications suggest impairment. Episodic Memory (Paired Associates): Borderline low at 91, suggesting emerging memory difficulties. Working Memory, Mental Rotation, Verbal Memory: All average or better (92 to 100), indicating preservation of several executive and short-term memory functions. Subjective Cognitive Decline: IQCODE-SR Score: 3.31 (above the 3.22 cutoff) Suggests subjective concerns about memory and thinking changes. Indicates risk for mild cognitive impairment despite relatively preserved objective function. Functional Status: IADL Deficits Identified: Difficulty or dependence in bautista daily life skills such as shopping, food preparation, and financial economist. Confirms early functional changes consistent with early-stage cognitive vulnerability. Non-Pharmacologi c Treatment Recommendations 1. Cognitive Stimulation Therapy (CUSTOMER ACCOUNTS ADVISOR) Engage in structured cognitive activities 2 to 3 times per week: Word puzzles, category games, visual-spatial tasks Activities that incorporate both memory and problem-solving skills Group or individualized CUSTOMER ACCOUNTS ADVISOR programs may help preserve cognition and social engagement. 2. Occupational Therapy for IADL Support Goal is to maintain independence in daily living tasks: Adaptive strategies for managing money (automatic bill pay, simplified checklists) Use of meal delivery services or guided cooking support Assistive tools for shopping (lists, online grocery tutorials) 3. Routine-Based Compensatory Strategies Implement daily structure with cues to support memory and orientation: Use of calendars, labeled environments, visual reminders Establish consistent routines for waking, meals, and bedtime 4. Memory Strategy Training Teach techniques such as: Chunking and association for recall Repetition and rehearsal in daily conversations Environmental modifications to reduce cognitive load 5. Physical Activity for Brain Health Recommend moderate-intensi ty aerobic activity: Walking, water aerobics, or heydi chi 30 minutes, at least 3 times per week to promote vascular and cognitive health 6. Social and Community Engagement Support socialization to reduce isolation and cognitive withdrawal: Encourage participation in senior centers, discussion groups, or memory cafes Engage in shared tasks like cooking or storytelling 7. Nutrition and Lifestyle Management Promote a Mediterranean-st yle diet rich in vegetables, healthy fats, and lean proteins Ensure adequate hydration and monitor for nutritional deficiencies 8. Caregiver and Family Education Educate about signs of cognitive decline and support planning: Monitor changes in function and communication Encourage involvement in shared decision-making while autonomy is intact Monitoring Plan Reassessment recommended every 6 to 12 months Functional safety check: Evaluate risk in areas such as medication management, stove use, or driving Referral: Consider neuropsychology consultation if decline accelerates or further clarification is needed This profile reflects mild functional impairment with subjective cognitive concern, aligned with early-stage MCI risk. The focus should remain on maintaining independence, supporting daily functions, and strengthening cognitive reserve through regular engagement. 08/21/2024 Encounter for screening for depression (ICD-10 - Z13.31) 08/21/2024 Encounter for screening for cardiovascular disorders (ICD-10 - Z13.6) 07/25/2024 Encounter for screening for depression (ICD-10 - Z13.31) 05/30/2024 Bipolar disorder, in partial remission, most recent episode depressed (ICD-10 - F31.75) olanzapine 20mg hs was in [facility]- will request records 08/03/2024 Dementia in other diseases classified elsewhere without behavioral disturbance (ICD-10 - F02.80) 06/26/2024 Encounter for screening for depression (ICD-10 - Z13.31) 03/29/2024 Bipolar disorder, in partial remission, most [...] follow-up visits. - Reevaluate in one month. 05/19/2024 Bipolar disorder, in partial remission, most recent episode depressed (ICD-10 - F31.75) 02/07/2024 Bipolar disorder, in partial remission, most [...] - Encourage the use of a pill urban and regional planner to help with medication adherence. - [...] when the buspirone is available for pickup. 03/01/2024 Bipolar disorder, in partial remission, most [...] medication regimen and overall mental health status. 11/04/2023 Bipolar disorder, in partial remission, most [...] any necessary adjustments to the treatment plan. 02/07/2024 Primary insomnia (ICD-10 - F51.01) doxepin [...] - Encourage the use of a pill urban and regional planner to help with medication adherence. - [...] the buspirone is available for pickup. 05/19/2024 Primary insomnia (ICD-10 - F51.01) 03/29/2024 Primary insomnia (ICD-10 - F51.01) 1. [...] follow-up visits. - Reevaluate in one month. 03/01/2024 Primary insomnia (ICD-10 - F51.01) 1. [...] medication regimen and overall mental health status. 07/25/2024 Generalized anxiety disorder (ICD-10 - F41.1) olanzapine 06/26/2024 Generalized anxiety disorder (ICD-10 - F41.1) olanzapine 05/30/2024 Primary insomnia (ICD-10 - F51.01) was in [facility]- will request records 08/21/2024 Bipolar disorder, in partial remission, most recent episode depressed (ICD-10 - F31.75) Pt and daughter report Olanzapine has been the best medication for her 08/21/2024 Generalized anxiety disorder (ICD-10 - F41.1) olanzapine 05/30/2024 MCI (mild cognitive impairment) (ICD-10 - G31.84) cont donepezilramos was in [facility]- will request records 06/26/2024 Primary insomnia (ICD-10 - F51.01) improving 07/25/2024 Primary insomnia (ICD-10 - F51.01) improving 03/01/2024 [...] medication regimen and overall mental health status. 03/29/2024 MCI (mild cognitive impairment) (ICD-10 - [...] follow-up visits. - Reevaluate in one month. 05/19/2024 MCI (mild cognitive impairment) (ICD-10 - G31.84) monitor 02/07/2024 MCI (mild cognitive impairment) (ICD-10 - [...] - Encourage the use of a pill urban and regional planner to help with medication adherence. - [...] when the buspirone is available for pickup. 06/26/2024 Dementia in other diseases classified elsewhere without behavioral disturbance (ICD-10 - F02.80) 08/21/2024 Primary insomnia (ICD-10 - F51.01) 07/25/2024 Dementia in other diseases classified elsewhere without behavioral disturbance (ICD-10 - F02.80) 08/21/2024 Dementia in other diseases classified elsewhere without [...] Advise against using melatonin supplement or any [id number]|2024-08-25 17:06:49|2024-08-25 17:06:49|WPDPFTINT||||"PFT Procedure Performed PFT Procedure Performed Plethysmography (Lung Vol) Diffusing Cap (DLCO) Flow Vol Loop Spirometry w/o Bronchodil PFT Interpretation This is a pulmonary function test with spirometry, plethysmography and diffusing capacity. The test was performed and results interpreted in accordance with the 2019 and 2005 ATS/ERS Task Force guidelines respectively using the Global Lung Function Initiative-2012 reference equations. Patient demonstrated good effort and cooperation. Reproducibility criteria were met. The quality of the spirometry maneuver was Grade A. Findings: Spirometry: The contour the inspiratory and expiratory flow tracing are normal. The FVC is 2.03 L, 91% predicted. The FEV1 is 1.53 L, 89% predicted. The FEV1: FVC ratio 76%. Plethysmography: Total lung capacity is 3.77 L, 87% predicted. The functional residual capacity is 2.52 L, 103% predicted. The residual volume is 1.74 L, 84% predicted. Diffusing capacity: The diffusing capacity unadjusted for hemoglobin and carboxyhemoglobin is 10.4, 58% predicted. The diffusing capacity adjusted for alveolar volume is 3.67, 83% predicted. Impression: The spirometry is normal without evidence of an obstructive abnormality. The lung volumes are normal. The diffusing capacity unadjusted for hemoglobin and carboxyhemoglobin is moderately decreased and normalizes when adjusted for alveolar volume. There are no prior studies for comparison "
--- NOTE | 2024-08-25 17:06 | P.PCNPFT_ITS ---
PFT Procedure Performed PFT Procedure Performed Plethysmography (Lung Vol) Diffusing Cap (DLCO) Flow Vol Loop Spirometry w/o Bronchodil PFT Interpretation This is a pulmonary function test with spirometry, plethysmography and diffusing capacity. The test was performed and results interpreted in accordance with the 2019 and 2005 ATS/ERS Task Force guidelines respectively using the Global Lung Function Initiative-2012 reference equations. Patient demonstrated good effort and cooperation. Reproducibility criteria were met. The quality of the spirometry maneuver was Grade A. Findings: Spirometry: The contour the inspiratory and expiratory flow tracing are normal. The FVC is 2.03 L, 91% predicted. The FEV1 is 1.53 L, 89% predicted. The FEV1: FVC ratio 76%. Plethysmography: Total lung capacity is 3.77 L, 87% predicted. The functional residual capacity is 2.52 L, 103% predicted. The residual volume is 1.74 L, 84% predicted. Diffusing capacity: The diffusing capacity unadjusted for hemoglobin and carboxyhemoglobin is 10.4, 58% predicted. The diffusing capacity adjusted for alveolar volume is 3.67, 83% predicted. Impression: The spirometry is normal without evidence of an obstructive abnormality. The lung volumes are normal. The diffusing capacity unadjusted for hemoglobin and carboxyhemoglobin is moderately decreased and normalizes when adjusted for alveolar volume. There are no prior studies for comparison
--- NOTE | 2024-08-25 17:10 | WPDPFTINT ---
PFT Procedure Performed PFT Procedure Performed Plethysmography (Lung Vol) Diffusing Cap (DLCO) Flow Vol Loop Spirometry w/o Bronchodil PFT Interpretation This is a pulmonary function test with spirometry, plethysmography and diffusing capacity. The test was performed and results interpreted in accordance with the 2019 and 2005 ATS/ERS Task Force guidelines respectively using the Global Lung Function Initiative-2012 reference equations. Patient demonstrated good effort and cooperation. Reproducibility criteria were met. The quality of the spirometry maneuver was Grade A. Findings: Spirometry: There is decreased maximal expiratory airflow at all lung volumes with concave expiratory flow tracing. The contour the inspiratory flow tracing is normal. The FVC is 2.76 L, 99% predicted. The FEV1 is 1.27 L, 58% predicted. The FEV1: FVC ratio is 46%. Plethysmography: The total lung capacity is 4.60 L, 97% predicted. The functional residual capacity is 2.56 L, 85% predicted. The residual volume is 1.84 L, 90% predicted. Diffusing capacity: The diffusing capacity unadjusted for hemoglobin and carboxyhemoglobin is 9.1, 41% predicted. The diffusing capacity adjusted for alveolar volume is 2.04, 48% predicted. Impression: There is a moderately severe obstructive abnormality. The lung volumes are normal. The diffusing capacity unadjusted for hemoglobin and carboxyhemoglobin is moderately decreased and remains moderately decreased when adjusted for alveolar volume. There are no prior studies for comparison
== END 2024-08-25 08:49 | disposition home or self-care (01) ==
PROVIDERS: PCP Emergency Medicine; Visit Provider Internal Medicine Hematology & Oncology
DX: C34.12 Malignant neoplasm of upper lobe, left bronchus or lung (principal); R94.2 Abnormal results of pulmonary function studies
CPT/HCPCS: 94375; 94726; 94729

== ENCOUNTER 2024-09-12 10:23 | Outpatient (CLI) | payer OTHER, SELFPAY ==
--- NOTE | ~2024-09-12 | PE_ITS ---
EXAMINATION: PET skull to mid thigh DATE: 09/13/2024 15:25 INDICATION: Malignant neoplasm of the left upper lobe. TECHNIQUE: Blood glucose level was 119 mg/dL. 11.77 mCi of 18-fluorodeoxyglucose (18-FDG) was adminis tered i.v. Low dose computed tomography (CT) images were acquired from the base of the brain to the p roximal thighs for attenuation correction and anatomic localization. Positron emission tomography (PE T) images were acquired in the same distribution beginning 61 minutes after injection. Images includi ng fused PET/CT images were reconstructed in axial, coronal, and sagittal planes. Automated exposure control technique was employed. The dose-length product was 633.23mGy-cm. COMPARISON: None FINDINGS: Head/neck: There is symmetric increased activity in the oral cavity, laryngeal muscles, ocular muscles and anter ior paracervical spinal musculature without CT correlate, likely physiologic. There are couple tiny f oci of increased uptake without radiologic correlate in the fat situated between the scalene and ster nocleidomastoid muscles without associated enlarged lymph nodes most likely related to brown fat. No pathologically enlarged cervical lymphadenopathy or other suspicious foci of increased FDG uptake in the visualized head or neck. Chest: There is increased FDG uptake with maximal SUV of 5.0 cm with the biopsied left millimeter right uppe r lobe nodule. No other suspicious pulmonary nodules, pneumonia, pulmonary edema or pleural effusion. Heart size is normal. Small amount of sclerotic coronary artery calcification and aortic valve calci fic lesion. No pericardial effusion. Thoracic aorta normal in caliber. No pathologically enlarged or FDG avid thoracic lymphadenopathy. There are several small foci of mild uptake along the left and rig ht posterior lateral margin of the spine which appear to represent combination of paraspinal muscular activity and activity at the articulation between the posterior ribs and the transverse processes. Abdomen/pelvis/proximal thighs: Physiologic renal accumulation and excretion of FDG activity in the kidneys, bladder and along portio ns of ureters. Normal degree and heterogenous pattern of increased uptake throughout the liver withou t radiologic correlate or dominant FDG avid lesion. Small amount of high attenuation material along t he dependent wall of the otherwise normal gallbladder likely related to cholelithiasis. Pancreas, spl een and bilateral adrenal glands are normal. Mild uptake scattered throughout the bowels without radi ologic correlate, also likely physiologic. There is moderate sigmoid predominant diverticulosis witho ut adjacent inflammatory stranding to suggest diverticulitis. Normal appendix. Uterus and bilateral a dnexa are unremarkable. No other abnormal foci of increased FDG uptake or pathologically enlarged lym phadenopathy in the abdomen, pelvis or proximal thighs. Musculoskeletal: Severe lower cervical and moderate thoracic spondylosis. Right supra-acetabular sclerotic bone island without FDG uptake. Mild cystic change at the left anterosuperior femoral head neck junction which c ould be seen with impingement and is also without FDG activity. No suspicious lytic, blastic or abnor ant FDG avid bone lesions. There is increased FDG activity overlying the left greater trochanter co nsistent with trochanteric bursitis. IMPRESSION: 1. Mild FDG uptake associated with the 11 mm right upper lobe nodule, biopsy-proven lung cancer. No e vident metastatic disease. 2. Cholelithiasis. Reviewed, dictated and finalized at location A. IMPRESSION: 1. Mild FDG uptake associated with the 11 mm right upper lobe nodule, biopsy-pr oven lung cancer. No evident metastatic disease. 2. Cholelithiasis.
--- OUTSIDE RECORDS SUMMARY | 2024-09-12 10:48 | XMS_ITS | Patient Health Record ---
Author Organization [facility] [employer] Address [address] [place] [address] Care Team Providers Care Handle And Vent Machine Operator Name Role Phone James Morales MD Primary Care Provider Unavail able Otto Allen Unavailable [phone] Marc Muhammad Unavailable [phone] Prateek Reyes Unavailable [phone] Allergies Allergen (clinical drug ingredient) Drug/Non Drug [...] preservative free >65 yrs Unknown 12/02/2022 Administered Kynetx Covid-19 Vac cine 2nd dose Unknown 06/27/2020 [...] Problem Depressed bipolar I disorder in remission (28527709) Bipolar disorder, in partial remission, most recent episode depressed (F31.75) 4 Active confirmed Problem Generalized anxiety disorder (20496022) Generalized anxiety disorder (F41.1) 4 Active confirmed Problem Primary insomnia (0810750) Primary insomnia (F51.01) 4 Active confirmed Problem Dementia (37323102) Dementia in other diseases classified elsewhere without behavioral disturbance (F02.80) Active confirmed Problem Mild cognitive disorder (042775434) MCI (mild cognitive impairment) (G31.84) Active confirmed Vital Signs Heart Rate 76 /min 08/21/2024 Blood pressure diastolic 80 mm Hg 08/21/2024 Height-cm 147.32 cm 08/21/2024 Weight-kg 57.24 kg 08/21/2024 Height 58.00 in 08/21/2024 Blood pressure systolic 135 mm Hg 08/21/2024 Weight 126.2 lbs 08/21/2024 BMI 26.37 kg/m2 08/21/2024 Encounters Encounter Location Date Provider Diagnosis [facility] [address] [place] [address] 09/23/2023 Ottomadyson Sherwooda Generalized anxiety disorder F41.1 ; Primary insomnia F51.01 and Bipolar disorder, in partial remission, most recent episode depressed F31.75 [facility] [address] [place] [address] 11/04/2023 Ottomadyson Cormieroza Generalized anxiety disorder F41.1 ; Bipolar disorder, in partial remission, most recent episode depressed F31.75 and Primary insomnia F51.01 [facility] [address] [place] [address] 02/07/2024 Otto Sherwooda Generalized anxiety disorder F41.1 ; Bipolar disorder, in partial remission, most recent episode depressed F31.75 ; Primary insomnia F51.01 and MCI (mild cognitive impairment) G31.84 [employer] [facility] [address] [place] [address] 03/01/2024 Otto Allen Generalized anxiety disorder F41.1 ; Bipolar disorder, in partial remission, most recent episode depressed F31.75 ; Primary insomnia F51.01 and MCI (mild cognitive impairment) G31.84 [facility] [employer] [facility] [address] [place] [address] 03/29/2024 Otto Allen Generalized anxiety disorder F41.1 ; Bipolar disorder, in partial remission, most recent episode depressed F31.75 ; Primary insomnia F51.01 and MCI (mild cognitive impairment) G31.84 [facility] [employer] [facility], [employer] [address] [place] [address] 05/19/2024 Prateek Reyes Generalized anxiety disorder F41.1 ; Bipolar disorder, in partial remission, most recent episode depressed F31.75 ; Primary insomnia F51.01 and MCI (mild cognitive impairment) G31.84 [employer] [facility] [address] [place] [address] 05/30/2024 Otto Allen Generalized anxiety disorder F41.1 ; Bipolar disorder, in partial remission, most recent episode depressed F31.75 ; Primary insomnia F51.01 and MCI (mild cognitive impairment) G31.84 [employer] [facility] [address] [place] [address] 06/26/2024 Otto Allen Bipolar disorder, in partial remission, most recent episode depressed F31.75 ; Encounter for screening for depression Z13.31 ; Generalized anxiety disorder F41.1 ; Primary insomnia F51.01 and Dementia in other diseases classified elsewhere without behavioral disturbance F02.80 [employer] [facility] [address] [place] [address] 07/25/2024 Otto Allen Bipolar disorder, in partial remission, most recent episode depressed F31.75 ; Encounter for screening for depression Z13.31 ; Generalized anxiety disorder F41.1 ; Primary insomnia F51.01 and Dementia in other diseases classified elsewhere without behavioral disturbance F02.80 [employer], [facility] [address] [place] [address] 08/03/2024 Marc Muhammad MCI (mild cognitive impairment) G31.84 and Dementia in other diseases classified elsewhere without behavioral disturbance F02.80 [facility] [employer] [facility] [address] [place] [address] 08/21/2024 Otto Allen Encounter for screen ing for depression Z13.31 ; Encounter for screening for cardiovascular disorders Z13.6 ; Bipolar disorder, in partial remission, most recent episode depressed F31.75 ; Generalized anxiety disorder F41.1 ; Primary insomnia F51.01 and Dementia in other diseases classified elsewhere without behavioral disturbance F02.80 [facility] [employer] [facility] [address] [facility] [address] [place] [address] 04/19/2024 [facility], [facility] [address] [facility] [address] [place] [address] 04/21/2024 [facility] [address] [facility] [address] [place] [address] 07/19/2024 [facility], [facility] [address] [facility] [address] [place] [address] 07/21/2024 [facility], [facility] [address] [facility] [address] [place] [address] 08/09/2024 [facility], [facility] [address] [address] 08/28/2024 Otto Allen Assessments Encounter Date Diagnosis (ICD Code) Assessment Notes Treatment Notes Treatment Clinical Notes Section Notes 02/07/2024 Generalized anxiety disorder (ICD-10 - F41.1) [...] - Encourage the use of a pill kit planner to help with medication adherence. - [...] disorder (ICD-10 - F41.1) olanzapine was in [facility]- will request records 06/26/2024 Bipolar [...] such as shopping, food preparation, and financial sales assistant. Confirms early functional changes consistent with early-stage cognitive vulnerability. Non-Pharmacologi c Treatment Recommendations 1. Cognitive Stimulation Therapy (TRANSCRIPTION SPECIALIST) Engage in structured cognitive activities 2 to 3 times per week: Word puzzles, category games, visual-spatial tasks Activities that incorporate both memory and problem-solving skills Group or individualized TRANSCRIPTION SPECIALIST programs may help preserve cognition and social [...] for screening for depression (ICD-10 - Z13.31) 07/25/2024 Bipolar disorder, in partial remission, most recent episode depressed (ICD-10 - F31.75) Pt and daughter report Olanzapine has been the best medication for her 03/29/2024 Generalized anxiety disorder (ICD-10 - F41.1) [...] follow-up visits. - Reevaluate in one month. 11/04/2023 Generalized anxiety disorder (ICD-10 - F41.1) [...] necessary adjustments to the treatment plan. 09/23/2023 Generalized anxiety disorder (ICD-10 - F41.1) [...] increase buspirone to 10mg twice daily 11/04/2023 Bipolar disorder, in partial remission, most [...] medication increase buspirone to 10mg twice daily 07/25/2024 Encounter for screening for depression (ICD-10 - Z13.31) 08/21/2024 Encounter for screening for cardiovascular disorders (ICD-10 - Z13.6) 03/29/2024 Bipolar disorder, in partial remission, most [...] - F31.75) olanzapine 20mg hs was in [facility]- will request records 08/03/2024 Dementia in other diseases classified elsewhere without behavioral disturbance (ICD-10 - F02.80) 03/01/2024 Bipolar disorder, in partial remission, most [...] - Encourage the use of a pill kit planner to help with medication adherence. - [...] pickup. 05/19/2024 Primary insomnia (ICD-10 - F51.01) 03/01/2024 Primary insomnia (ICD-10 - F51.01) 1. [...] medication regimen and overall mental health status. 02/07/2024 Primary insomnia (ICD-10 - F51.01) doxepin [...] - Encourage the use of a pill kit planner to help with medication adherence. - [...] the buspirone is available for pickup. 06/26/2024 Generalized anxiety disorder (ICD-10 - F41.1) olanzapine 05/30/2024 Primary insomnia (ICD-10 - F51.01) was in [facility]- will request records 07/25/2024 Generalized anxiety disorder (ICD-10 - F41.1) olanzapine 08/21/2024 Bipolar disorder, in partial remission, most recent episode depressed (ICD-10 - F31.75) Pt and daughter report Olanzapine has been the best medication for her 11/04/2023 Primary insomnia (ICD-10 - F51.01) doxepin [...] any necessary adjustments to the treatment plan. 03/29/2024 Primary insomnia (ICD-10 - F51.01) 1. [...] follow-up visits. - Reevaluate in one month. 08/21/2024 Generalized anxiety disorder (ICD-10 - F41.1) olanzapine 07/25/2024 Primary insomnia (ICD-10 - F51.01) improving 05/30/2024 MCI (mild cognitive impairment) (ICD-10 - G31.84) cont donepezilsavannahnda was in [facility]- will request records 06/26/2024 Primary insomnia (ICD-10 - F51.01) improving 02/07/2024 MCI (mild cognitive impairment) (ICD-10 - [...] - Encourage the use of a pill kit planner to help with medication adherence. - [...] the buspirone is available for pickup. 03/01/2024 MCI (mild cognitive impairment) (ICD-10 - [...] regimen and overall mental health status. 05/19/2024 MCI (mild cognitive impairment) (ICD-10 - G31.84) monitor 06/26/2024 Dementia in other diseases classified elsewhere [...] Advise against using melatonin supplement or any [id number] sleep aids due to potential interactions Plan: [...] care planning: Plan: - Review records from [facility] to better understand the patient's needs and previous care - Explore assisted living options and requirements, considering the level of support needed for medication management and daily tasks - Collaborate with the patient and family to develop a comprehensive care plan that addresses both psychiatric and cognitive concerns was in [facility]- will request records 06/26/2024 Other cont doneyumikozil, namenda 1. Bipolar Disorder: - Patient has [...] need for sleep aids at follow-up appointment 07/25/2024 Walker Zuleta, an elderly female patient with dementia and recently diagnosed localized lung cancer, presents with increased confusion, slower mindset, and anxiety over the past two weeks. Dementia with recent cognitive decline Assessment: Patient has a known diagnosis of dementia with recent worsening of symptoms over the past two weeks. She reports feeling more confused and having a slower mindset. There are concerns about safety, including potential falls and confusion at night. The patient is currently able to manage some activities of daily living independently, such as bathing, but requires assistance with finances. Cooking abilities are limited to microwave use, with uncertainty about stove operation. Cognitive testing is planned to further assess the patient's current status. Plan: - Increase olanzapine to 20 mg PO at bedtime for sleep and to address confusion - Perform computerized cognitive testing to assess current cognitive function - Continue melatonin supplement (dose and frequency not specified) - Reassess in one month to evaluate response to medication adjustment and cognitive test results - Discuss safety concerns and potential need for assisted living or in-home care Anxiety Assessment: Patient reports anxiety symptoms, including difficulty falling asleep and a tendency to think of worst-case scenarios with vivid mental imagery. These symptoms may be exacerbated by the recent lung cancer diagnosis. Plan: - Increase olanzapine to 20 mg PO at bedtime (as mentioned above) to address both sleep issues and anxiety symptoms - Continue to monitor for effectiveness of medication adjustment and any side effects Newly diagnosed localized lung cancer Assessment: Patient has been recently diagnosed with localized lung cancer. The tumor is described as small (11 millimeters), non-metastatic, and neither small cell nor non-small cell type. The pathologist reportedly stated it was the best outcome seen for a lung mass. Surgical removal is being considered as the primary treatment option, with possible radiation and minimal chance of chemotherapy. Plan: - Await oncology consultation for definitive treatment plan - Reassess patient's condition and treatment needs at follow-up appointment in one month the note is transcribed using speech recognition software. It is a reflection of a visit with the patient. It might have some inaccuracy, including medication names and transcribing errors, though efforts have been made to correct them. 08/21/2024 Walker Zuleta, an elderly female patient with a history of bipolar disorder, presents with depression, sleep disturbances, and cognitive decline, facing potential transition to assisted living. Bipolar Disorder Assessment: Patient reports feeling depressed and exhibits symptoms consistent with a major depressive episode, including hypersomnia, anergia, and anhedonia. She expresses a desire to sleep but experiences frustration when unable to do so. The patient's daughter confirms that the patient spends most of her time laying around and doing nothing. These symptoms are impacting the patient's daily functioning and self-care abilities. Current treatment with olanzapine 20 mg has not adequately addressed depressive symptoms. Plan: - Add fluoxetine 20 mg PO daily for depression and anxiety - Informed patient that fluoxetine is an antidepressant that may also help with anxiety - Continue olanzapine 20 mg (current dose, no change specified) - Follow-up appointment scheduled in one month to assess response to new medication regimen Cognitive Decline / Possible Dementia Assessment: Patient has undergone cognitive testing, results of which were not fully disclosed but suggested some areas of concern. The patient's daughter reports confusion at home. The patient acknowledges difficulty with certain instrumental activities of daily living, such as using a gas stove, which she avoids due to discomfort. There is consideration of a differential diagnosis between bipolar disorder and dementia. The extent of cognitive impairment and its impact on daily functioning suggests the need for a higher level of care, potentially assisted living. Plan: - Consider comprehensive assessment of activities of daily living (ADLs) and instrumental activities of daily living (IADLs) to determine appropriate level of care - Evaluate safety measures at home, including removal of fall hazards like rugs and ensuring proper footwear - Monitor cognitive function and ability to manage medications, appointments, and self-care Pending Cancer Treatment Assessment: Patient has a pending cancer diagnosis with anticipated treatment. The impact of cancer treatment on the patient's overall health, cognitive function, and care needs is yet to be determined but is acknowledged as a significant factor in future care planning. Plan: - Reassess care needs and living situation after initiation of cancer treatment - Monitor for potential side effects and complications of cancer treatment that may affect mental health and cognitive function the note is transcribed using speech recognition software. It is a reflection of a visit with the patient. It might have some inaccuracy, including medication names and transcribing errors, though efforts have been made to correct them. Plan Of Treatment Future Test Test Name Order Date SLUMS Testing 07/25/2024 Next Appt Details Provider Name:Otto nunez, 09/27/2024 04:45:00 PM, [address], [facility] [address], [place], [address], Insurance Providers Payer Name Payer Address Payer Phone Subscriber Number Group Number Insured Name Patient Relationship to Insured Coverage Start Date Coverage End Date [employer] Medicare Replacement/ Advantage - [employer]mo [address] [place] [phone] [id number] [id number] Self - patient is the insured Medical (General) History Medical History History ICD Code Problems: Depressed bipolar I disorder i n partial remission Generalized anxiety disorder Primary insomnia , Imported from Highlights: Nathan moffett the office visit on August 15, 2024, the patient was seen by Dr. Sivakumar Finch at [facility]. The significant medical condition identified during this visit was a malignant neoplasm of the upper lobe of the left lung. This condition is categorized under CMS/HCC. No hospitalizations or additional testing were reported during this visit. Surgical History Surgery Date(Month/Year) Tonsilectomy/adenoids 04/12/1971
--- OUTSIDE RECORDS SUMMARY | 2024-09-12 10:48 | XMS_ITS | Clinical Summary ---
Author Organization [facility] Joie Gleason Address [address] [place] [address] Care Team Providers Care Brake Repairer Railroad Name Role Phone James Morales MD Primary Care Provider [phone] Allergies Active Allergy Reactions Criticality Noted Date [...] Encounters Date Type Department Care Team Description 09/05/2024 External Device Data [facility] ABSTRACTION Provider, Abstract 08/31/2024 External Device Data [facility] ABSTRACTION Provider, Abstract 08/30/2024 External Device Data [facility] ABSTRACTION Provider, Abstract 08/29/2024 External Device Data [facility] ABSTRACTION Provider, Abstract 08/28/2024 Orders Only [facility] - [place] [address] [place] [address] Sivakumar Finch MD 08/22/2024 External Device Data ST[facility] ABSTRACTION Provider, Abstract 08/22/2024 External Device Data [facility] ABSTRACTION Provider, Abstract 08/22/2024 External Device Data ST[facility] ABSTRACTION Provider, Abstract 08/15/2024 3:00 PM CDT Office Visit [facility] - [place] [address] [place] [address] Sivakumar Finch MD Malignant neoplasm of [...] 3:21 PM CDT Height 147.3 cm (4' 10) 08/15/2024 3:21 PM CDT Body Mass Index 26.75 08/15/2024 3:21 PM CDT Plan of Treatment Upcoming Encounters Date Type Department Care Team (Late st Contact Info) Description 09/20/2024 9:00 AM CDT Office Visit [facility] Thor Surg at [facility] [address] [facility] [place] [address] Omar Wheat MD [facility] [address] [facility] [address] [place] [address] 09/20/2024 10:00 AM CDT Appointment [facility] [address] [place] [address] Health Maintenance Due Date Last Done Comments DTAP/TDAP/TD VACCINES (1 - Tdap) 1967 PNEUMOCOCCAL VACCINE 50+ YEARS (1 of 1 - PCV) 04/20/18 99 ZOSTER VACCINE (1 of 2) 1998 OSTEOPOROSIS SCREENING 2013 RSV VACCINE (60+ or ) (1 - 1-dose 75+ series) 2023 INFLUENZA VACCINE (#1) 2023 12/02/2022 Medicare Advantage (ID) Prev entative Visit/Annual Wellness Visit 04/12/2024 Procedures Procedure Name Priority Date/Time Associated Diagnosis Comments BREATHING CAPACITY TEST Routine 08/25/2024 2:18 PM CDT from Last 3 Months Results * BREATHING CAPACITY TEST (08/25/2024 2:18 PM CDT) Sivakumar Finch MD PFT ORDERABLES Final Result from Last 3 Months Insurance [facility] Care Teams [employer] Relationship Specialty Start Date End Date James Morales MD [address] [place] [address] PCP - General Internal Medicine 08/14/24
[2024-09-12 10:50] LABS: Glucose Point of Care 119 mg/dl (65-105)
== END 2024-09-12 10:24 | disposition home or self-care (01) ==
PROVIDERS: PCP Emergency Medicine; Visit Provider Internal Medicine Hematology & Oncology
DX: C34.12 Malignant neoplasm of upper lobe, left bronchus or lung (principal); K80.20 Calculus of gallbladder without cholecystitis without obstruction
CPT/HCPCS: 78815; A9552

== ENCOUNTER 2024-11-21 15:48 | Outpatient (CLI) | payer OTHER, SELFPAY ==
--- NOTE | 2024-11-21 | ECHO_ITS ---
Patient Info Name: Kia Chung Age: 74 years : 1950 Gender: Female Ht: 59 in Wt: 120 lbs BSA: 1.52 m2 HR: 63 bpm BP: 127 / 77 mmHg Heart Rhythm: Sinus Rhythm Technical Quality: Good Exam Date: 11/21/2024 4:12 PM Patient Status: unknown Admit Date: 11/21/2024 Exam Type: CA echo doppler color flow Complete two-dimensional, color flow and Doppler transthoracic echocardiogram is performed. Histology Assistant: Melanie Pimentel Summary 1. Complete two-dimensional, color flow and Doppler transthoracic echocardiogram is performed. 2. Left ventricular chamber dimension is normal. 3. Left ventricular systolic function is normal, estimated at 65-70. 4. There is mildly increased left ventricular wall thickness. 5. The left ventricular diastolic function is grade I diastolic dysfunction. 6. Left atrial chamber dimension is mildly enlarged. 7. There is severe aortic valve stenosis with a peak velocity of 301 cm/s, mean gradient of 21 mmHg, and aortic valve area of 0.7 cm2 although visually the valve does not appear to be as stenotic as calculated. 8. There is mild to moderate aortic valve regurgitation. 9. There is moderate aortic valve calcification. 10. There is mild mitral valve regurgitation. 11. There is mild tricuspid valve regurgitation. 12. Mild pulmonary hypertension, estimated pulmonary arterial systolic pressure is 37 mmHg. Left Ventricle Left ventricular chamber dimension is normal. Left ventricular systolic function is normal, estimated at 65-70. There is mildly increased left ventricular wall thickness. The left ventricular diastolic function is grade I diastolic dysfunction. Right Ventricle Right ventricular chamber dimension is normal. Right ventricular systolic function is normal. Left Atria Left atrial chamber dimension is mildly enlarged. Right Atria Right atrial chamber dimension is normal. Atrial Septum Intact interatrial septum visualized by color flow imaging. Aortic Valve The aortic valve is trileaflet. There is severe aortic valve stenosis with a peak velocity of 301 cm/s, mean gradient of 21 mmHg, and aortic valve area of 0.7 cm2 although visually the valve does not appear to be as stenotic as calculated. There is mild to moderate aortic valve regurgitation. There is moderate aortic valve calcification. Pulmonic Valve The pulmonic valve is normal. There is no pulmonic valve stenosis. There is trace pulmonic regurgitation. Mitral Valve The mitral valve has normal leaflets. There is no mitral valve stenosis. There is mild mitral valve regurgitation. Tricuspid Valve The tricuspid valve leaflets are normal. There is no significant tricuspid valve stenosis. There is mild tricuspid valve regurgitation. Mild pulmonary hypertension, estimated pulmonary arterial systolic pressure is 37 mmHg. Pericardium/Pleural The pericardium appears normal. There is no pericardial effusion. Inferior Vena Cava Normal inferior vena cava with >50% collapse upon inspiration consistent with normal right atrial pressure, 10 mmHg. Aorta The aortic root size at the sinus of Valsalva is normal. Left Ventricular Outflow Tract Name Value Normal LVOT 2D LVOT Diameter 1.8 cm LVOT Doppler LVOT Peak Velocity 89 cm/s LVOT Peak Gradient 3 mmHg LVOT Mean Gradient 2 mmHg LVOT VTI 20 cm LVOT VTI/AV VTI Ratio 0.3 LVOT Stroke Volume 53 ml LVOT CO 9.7 l/min LVOT CI 6.4 l/min/m2 Pulmonic Valve Name Value Normal PV Doppler PV Peak Velocity 101 cm/s PV Peak Gradient 4 mmHg Mitral Valve Name Value Normal MV Diastolic Function MV E Peak Velocity 88 cm/s MV A Peak Velocity 127 cm/s MV E/A 0.7 MV Decel Time (PW) 260 ms MV Annular TDI MV E/e' (Septal) 18.9 MV E/e' (Lateral) 14.8 MV E/e' (Average) 16.8 Tricuspid Valve Name Value Normal TV Regurgitation Doppler TR Peak Velocity 259 cm/s TR Peak Gradient 25 mmHg Estimated PAP/RSVP RA Pressure 10 mmHg <=5 PA Systolic Pressure 37 mmHg <36 RV Systolic Pressure 37 mmHg <36 TV Annular TDI TV Lateral Tiffany s' Velocity 10.2 cm/s >=9.5 Aorta Name Value Normal Ascending Aorta Ao Root Diameter (MM) 2.5 cm Ao Root Diam Index (MM) 1.7 cm/m2 Aortic Valve Name Value Normal AV Doppler AV Peak Velocity 301 cm/s AV Peak Gradient 36 mmHg AV Mean Gradient 21 mmHg AV VTI 72 cm AV Area (Cont Eq VTI) 0.7 cm2 >=3.0 AV Area (Cont Eq Hugh) 0.8 cm2 AV DI (Hugh) 0.29 AV Regurgitation 2D LVOT Area 2.6 cm2 Ventricles Name Value Normal LV Dimensions 2D/MM IVS Diastolic Thickness (2D) 1.1 cm 0.6-1.0 LVID Diastole (2D) 3.8 cm 3.8-5.2 LVIW Diastolic Thickness (2D) 1.1 cm 0.6-0.9 LVID Systole (2D) 2.1 cm 2.2-3.5 LVOT Diameter 1.8 cm LV Mass (2D Cubed) 134.41 g 67.00-162.00 LV Mass Index (2D Cubed) 89 g/m2 43-95 Relative Wall Thickness (2D) 0.57 <=0.42 LV Fractional Shortening/Ejection Fraction 2D/MM LV Fractional Shortening (2D) 45 % 27-45 LV EF (2D Teichholz) 77 % LV Diastolic Volume (4C MOD) 81 ml LV EF (4C MOD) 57 % LV Diastolic Volume (2C MOD) 70 ml LV EF (2C MOD) 71 % LV Diastolic Volume (BP MOD) 76 ml 46-106 LV Diastolic Volume Index (BP MOD) 50 ml/m2 29-61 LV Systolic Volume (BP MOD) 26 ml 14-42 LV Systolic Volume Index (BP MOD) 17 ml/m2 8-24 LV EF (BP MOD) 65 % 54-74 LV Diastolic Length (4C) 7.3 cm LV Systolic Length (4C) 6.0 cm LV Stroke Volume (4C MOD) 46 ml Atria Name Value Normal LA Dimensions LA Dimension (MM) 3.5 cm 2.7-3.8 LA Volume (4C A-L) 33 ml LA Volume (BP A-L) 37 ml RA Dimensions RA Systolic Major Banner Length (4C) 4.1 cm 2.2-2.8 RA Area (4C) 10.8 cm2 <=18.0 Report Signatures
--- OUTSIDE RECORDS SUMMARY | 2024-11-21 15:57 | XMS_ITS | Encounter Summary ---
Author Organization Address [address] [place] [address] Care Team Providers Care Greenhouse Technician Name Role Phone James Morales MD Primary Care Provider [phone] Reason for Visit * Auth/Cert (Routine) Specialty Diagnoses / Procedures Referred By Dennis t Referred To Contact Diagnoses Primary large cell carcinoma of lung, right (CMS/HCC) Procedures DC THORACOSCOPY W/THERA WEDGE RESEXN INITIAL UNILAT DC RMVL LUNG OTHER THAN PNEUMONECTOMY 1 LOBE LOBECT Omar Wheat MD [address] [facility] [address] [place] [address] Phone: tel: fax: Referral ID Status Reason Start Date Expiration Date Visits Re quested Visits Authorized [id number] 09/21/2024 1 1 Encounter Details Date Type Department Care Team (Latest Contact Info) Description 11/16/2024 Hospital Encounter [facility] Operating Room [address] [place] [address] Omar Wheat MD [address] [facility] [address] [place] [address] Primary large cell carcinoma of lung, right (CMS/HCC) Social History Tobacco Use Types Packs/Day Years Used Date Smoking Tobacco: Former Cigarettes 2 42 0 04/12/1967 - 04/12/2009 Smokeless Tobacco: Never Alcohol Use Standard Drinks/Week Comments Never 0 (1 standard drink = 0.6 oz pur e alcohol) Comments Unknown Sex and Gender Information Value Date Recorded Sex Assigned at Not on file Legal Sex Female 3:09 PM CDT Gender Identity Not on file Sexual Orientation Not on file documented as of this encounter Plan of Treatment Not on file documented as of this encounter Visit Diagnoses Diagnosis Encounter for blood typing- Primary documented in this encounter Care Teams Greenhouse Technician Relationship Specialty Start Date End Date James Morales MD [address] [place] [phone] PCP - General Internal Medicine 08/14/24 documented as of this encounter
--- OUTSIDE RECORDS SUMMARY | 2024-11-21 15:57 | XMS_ITS | Clinical Summary ---
Author Organization [facility] (Formerly [facility]) Williscorina Gleason Address [address] [address] Care Team Providers Care Distribution Spec Name Role Phone James Morales MD Primary Care Provider [phone] Allergies Active Allergy Reactions Criticality Noted Date [...] mouth daily in the morning. 05/19/2024 Active FLUoxetine (PROzac) 20 mg capsule Take 20 mg by mouth daily. Active Magnesium 200 mg Tablet Take by mouth. Active melatonin 5 mg Tablet Take by mouth nightly as needed. Active Active Problems Problem Noted Date Diagnosed Date Dementia 11/03/2024 Mild cognitive disorder 11/03/2024 Depressed bipolar I disorder in remission 2023 Generalized anxiety disorder 05/25/2023 Primary insomnia 05/25/2023 Encounters Date Type Department Care Team Description 11/17/2024 10:15 AM CDT Office Visit [facility] ([facility]) Heart and Vascular [place] [address] [place] [address] Contreras Tripp MD Hyperlipidemia, unspecified hyperlipidemia type (Primary Dx); HTN (hypertension), benign; Aortic valve stenosis, nonrheumatic 11/16/2024 Hospital Encounter [facility] Operating Room [address] [place] [phone] Omar Wheat MD Primary large cell carcinoma of lung, right (CMS/HCC) 11/15/2024 External Device Data STL ABSTRACTION Provider, Abstract 11/15/2024 Telephone [facility] ([facility]) Cardiovas and Thor Surg at [address] [phone] Omar Wheat MD Information 11/14/2024 Orders Only [facility] ([facility] Cardiovas and Thor Surg at [address] [phone] Omar Wheat MD Aortic valve stenosis, etiology of cardiac valve disease unspecified (Primary Dx) 11/14/2024 Abstract [facility] Cardiovas and Thor Surg at [address] [phone] Omar Wheat MD 11/07/2024 External Device Data STL ABSTRACTION Provider, Abstract 11/07/2024 External Device Data STL ABSTRACTION Provider, Abstract 11/07/2024 External Device Data STL ABSTRACTION Provider, Abstract 11/03/2024 9:30 AM CDT Office Visit [facility] ([facility] Cardiovas and Thor Surg at [address] [phone] Omar Wheat MD Adenocarcinoma of right lung (CMS/HCC) (Primary Dx) 11/03/2024 8:15 AM CDT - 11/03/2024 11:59 PM CDT Hospital Encounter [facility] [address] [place] [phone] Omar Wheat MD Discharge Disposition: Home or Self Care 10/25/2024 External Device Data STL ABSTRACTION Provider, Abstract 10/24/2024 External Device Data STL ABSTRACTION Provider, Abstract 09/26/2024 External Device Data STL ABSTRACTION Provider, Abstract 09/25/2024 10:31 AM CDT - 09/25/2024 11:59 PM CDT Hospital Encounter [facility] Laboratory Services [place] [address] [place] [address] Omar Wheat MD Discharge Disposition: Home or Self Care 09/22/2024 Abstract [facility] Cardiovas and Thor Surg at [address] [place] [phone] Omar Wheat MD 09/21/2024 12:00 PM CDT Office Visit [facility] Cardiovas and Thor Surg at [address] [place] [phone] Sivakumar Finch MD Fotouhi, Farzin, MD Adenocarcinoma of right lung (CMS/HCC) (Primary Dx); Abnormal coagulation profile 09/20/2024 Abstract [facility] Cardiovas and Thor Surg at [address] [place] [phone] Omar Wheat MD 09/19/2024 Telephone [facility] Cardiovas and Thor Surg at [address] [place] [phone] Omar Wheat MD Information 09/14/2024 Orders Only [facility] Oncology and Hematology - [place] [address] [place] [phone] Sivakumar Finch MD 09/05/2024 External Device Data STL ABSTRACTION Provider, Abstract 08/31/2024 External Device Data STL ABSTRACTION Provider, Abstract 08/30/2024 External Device Data STL ABSTRACTION Provider, Abstract 08/29/2024 External Device Data STL ABSTRACTION Provider, Abstract 08/28/2024 Orders Only [facility] Oncology and Hematology - [place] [address] [place] [phone] Sivakumar Finch MD 08/22/2024 External Device Data STL ABSTRACTION Provider, Abstract 08/22/2024 External Device Data STL ABSTRACTION Provider, Abstract 08/22/2024 External Device Data STL ABSTRACTION Provider, Abstract from Last 3 Months Family History Medical [...] Sign Reading Time Taken Comments Blood Pressure 142/82 11/17/2024 10:21 AM CDT Pt states she is nervous Pulse 66 11/17/2024 10:21 AM CDT Temperature 36.4 C (97.6 F) 08/15/2024 3:21 PM CDT Respiratory Rate 15 08/15/2024 3:21 PM CDT Oxygen Saturation 97% 11/17/2024 10: 21 AM CDT Inhaled Oxygen Concentration - - Weight 55.5 kg (122 lb 6.4 oz) 11/17/2024 10:21 AM CDT Height 147.3 cm (4' 10) 11/17/2024 10: 21 AM CDT Body Mass Index 25.58 11/17/2024 10:21 AM CDT Plan of Treatment Health Maintenance Due Date Last Done Comments DTAP/TDAP/TD VACCINES (1 - Tdap) 1967 PNEUMOCOCCAL VACCINE 50+ YEARS (1 of 1 - PCV) 04/20/18 99 ZOSTER VACCINE (1 of 2) 1998 OSTEOPOROSIS SCREENING 2013 RSV VACCINE (60+ or ) (1 - 1-dose 75+ series) 2023 Medicare Advantage ([place]) Prev entative Visit/Annual Wellness Visit 04/12/2024 INFLUENZA VACCINE (#1) 2024 12/02/2022 Procedures Procedure Name Priority Date/Time Associated Diagnosis Comments EKG 12-LEAD Routine 11/03/2024 9:45 AM CDT TYPE AND SCREEN Routine 11/03/2024 9:26 AM CDT PT AND APTT Routine 11/03/2024 9:26 AM CDT Adenocarcinoma of right lung (CMS/HCC) Abnormal coagulation profile CBC WITH DIFFERENTIAL Routine 11/03/2024 9:26 AM CDT Adenocarcinoma of right lung (CMS/HCC) BASIC METABOLIC PANEL Routine 11/03/2024 9:26 AM CDT Adenocarcinoma of right lung (CMS/HCC) PATHOLOGY Pathology 09/25/2024 10:32 AM CDT Encounter for consultation PET BONE IMG W CT SKL BSE MID THG Routine 09/12/2024 3:59 PM CDT BREATHING CAPACITY TEST Routine 08/25/2024 2:18 PM CDT from Last 3 Months Results * EKG 12-LEAD (11/03/2024 9:45 AM CDT) 11/03/2024 9:45 AM CDT Narrative INTERFACE SYSTEM - 11/03/2024 10:26 AM CDT [facility] [address] [place] [address] Test Date: 2024-11-03 Pat Name: KIA ZULETA Department: 100 Room: Gender: Female Financial Sales Associate: Gayle : 1950 Requested By: OMAR WHEAT Order Number: [id number] Reading MD: Chuck Morrison Measurements Intervals [place] Rate: 57 P: 48 WI: 188 QRS: -24 QRSD: 103 T: 58 QT: 448 QTc: 437 Interpretive Statements SINUS BRADYCARDIA BORDERLINE LEFT AXIS DEVIATION Electronically Signed On 11-03-2024 10:26:30 CDT by Chuck Morrison Procedure Note Chuck Morrison MD - 11/03/[address] [facility] [address] [facility] [place] [address] Test Date: 2024-11-03 Pat Name: KIA ZULETA Department: 100 Room: Gender: Female Financial Sales Associate: Jessynirmala : 1950 Requested By: OMAR WHEAT Order Number: [id number] Reading MD: Chuck Morrison Measurements Intervals [place] Rate: 57 P: 48 WI: 188 QRS: -24 QRSD: 103 T: 58 QT: 448 QTc: 437 Interpretive Statements SINUS BRADYCARDIA BORDERLINE LEFT AXIS DEVIATION Electronically Signed On 11-03-2024 10:26:30 CDT by Chuck Morrison us Omar Wheat MD ECG ORDERABLES Final Result Performing Organization Address City/State/[facility] Co de Phone Number INTERFACE SYSTEM Refer to clinic/hospital department * PT AND APTT (11/03/2024 9:26 AM CDT) PROTIME 13.9 12.7 - 15.1 Seconds 11/03/2024 11:20 AM CDT [facility] INR 1.1 0.9 - 1.1 11/03/2024 11:20 AM CDT [facility] PTT 29.4 24.4 - 36.4 seconds 11/03/2024 11:20 AM CDT [facility] Comment: PTT Therapeutic Range: Heparin Level PTT (seconds) <0.10 units/mL <55.8 0.10 - 0.30 units/mL 55.8 - 74.3 0.30 - 0.70 units/mL* 74.3 - 111.2* 0.70 - 1.00 units/mL 111.2 - 138.9 *corresponds to therapeutic range for unfractionated heparin Blood Venipuncture / Unknown 11/03/2024 9:26 AM CDT 11/03/2024 10:49 AM CDT [facility] - 11/03/2024 11:20 AM CDT INR Therapeutic Range: Adult: 2.0 - 3.0 for pulmonary embolism or prophylaxis against venous thrombosis or systemic embolization. 2.0 - 3.0 for patients with tissue heart valves. 2.5 - 3.5 for patients with mechanical heart valves or post HI. Pediatric (12 years and under): 1.5 - 3.0 Although the target range in children is not well established, INR values of 1.5 - 3.0 are recommended for most patients. Higher values have been used in children with prosthetic cardiac valves and hereditary clotting disorders. (<3 days) therapeutic ranges have not been established. Chelsy Knott PA-C HEMATOLOGY ORDERABLES F inal Result [facility] - [facility] CLIA# [id number] [address] [place] [address] * CBC WITH DIFFERENTIAL (11/03/2024 9:26 AM CDT) WBC 8.2 4.0 - 9.8 K/uL 11/03/2024 11:11 AM CDT [facility] RBC 4.33 3.90 - 4.90 M/uL 11/03/2024 11:11 AM CDT [facility] HEMOGLOBIN 13.2 11.8 - 14.8 g/dL 11/03/2024 11:11 AM CDT [facility] HEMATOCRIT 39.7 35.5 - 44.0 % 11/03/2024 11:11 AM CDT [facility] MCV 91.7 82.0 - 99.0 fL 11/03/2024 11:11 AM CDT [facility] MCH 30.5 27.2 - 32.6 pg 11/03/2024 11:11 AM CDT [facility] MCHC 33.2 31.5 - 35.5 g/dL 11/03/2024 11:11 AM CDT [facility] RDW 14.0 11.5 - 14.5 % 11/03/2024 11:11 AM CDT [facility] RDW-STDEV 47.0 37.1 - 48.7 fL 11/03/2024 11:11 AM CDT [facility] PLATELETS 303 140 - 350 K/uL 11/03/2024 11:11 AM CDT [facility] MPV 11.5 9.3 - 12.4 fL 11/03/2024 11:11 AM CDT [facility] NEUTROPHILS 77 % 11/03/2024 11:11 AM CDT [facility] LYMPHOCYTES 16 % 11/03/2024 11:11 AM CDT [facility] MONOCYTES 6 % 11/03/2024 11:11 AM CDT [facility] EOSINOPHILS 0 % 11/03/2024 11:11 AM CDT [facility] BASOPHILS 0 % 11/03/2024 11:11 AM CDT [facility] IMMATURE GRANULOCYTES 0 % 11/03/2024 11:11 AM CDT [facility] NEUTROPHIL ABSOLUTE 6.30 1.90 - 7.00 K/uL 11/03/2024 11:11 AM CDT [facility] LYMPHOCYTE ABSOLUTE 1.26 0.70 - 4.50 K/uL 11/03/2024 11:11 AM CDT [facility] MONOCYTE ABSOLUTE 0.51 0.10 - 1.30 K/uL 11/03/2024 11:11 AM CDT [facility] EOSINOPHIL ABSOLUTE 0.03 0.00 - 0.70 K/uL 11/03/2024 11:11 AM CDT [facility] BASOPHILS ABSOLUTE 0.03 0.00 - 0.20 K/uL 11/03/2024 11:11 AM CDT [facility] IMMATURE GRANULOCYTES ABSOLUTE 0.02 0.00 - 0.03 K/uL 11/03/2024 11:11 AM CDT [facility] Blood Venipuncture / Unknown 11/03/2024 9:26 AM CDT 11/03/2024 10:49 AM CDT Chelsy Knott PA-C HEMATOLOGY ORDERABLES F inal Result [id number] [address] [place] [address] * TYPE AND SCREEN (11/03/2024 9:26 AM CDT) ABO GROUP A 11/03/2024 12:38 PM CDT [facility] -- [facility] RH (D) TYPE Positive 11/03/2024 12:38 PM CDT [facility] ANTIBODY SCREEN Negative 11/03/2024 12:38 PM CDT [facility] -- [facility] Blood Venipuncture / Unknown 11/03/2024 9:26 AM CDT 11/03/2024 10:49 AM CDT Omar Wheat MD BLOOD BANK ORDERABLES Edited R esult - Final Performing Organization Address City/[facility]/ZIP Co de Phone Number [facility] -- [facility] CLRENATA# [id number] [address] [place] [address] * (ABNORMAL) BASIC METABOLIC PANEL (11/03/2024 9:26 AM CDT) SODIUM 141 136 - 145 mmol/L 11/03/2024 11:28 AM CDT [facility] - [facility] POTASSIUM 3.9 3.5 - 5.0 mmol/L 11/03/2024 11:28 AM CDT [facility] - . [facility] CHLORIDE 104 98 - 107 mmol/L 11/03/2024 11:28 AM CDT [facility] - . [facility] CO2 29 22 - 29 mmol/L 11/03/2024 11:28 AM CDT [facility] - . [facility] CALCIUM 9.2 8.6 - 10.2 mg/dL 11/03/2024 11:28 AM CDT [facility] - . [facility] BUN 26(H) 8 - 23 mg/dL 11/03/2024 11:28 AM CDT [facility] - . [facility] CREATININE 0.75 0.51 - 0.95 mg/dL 11/03/2024 11:28 AM CDT [facility] [place] [facility] Comment:The GFR result is no t clinically significant on patients <18 or >70 years of age. GLUCOSE 111(H) 74 - 99 mg/dL 11/03/2024 11:28 AM T [facility] GFR >60 mL/min/1.7 3 sq meter 11/03/2024 11:28 AM T [facility] Comment:eGFR calculated with 2020 CKD-EPI equation. Vegetarian diet, extremely high or low muscle mass, and may affect results. Cystatin C with Glomerular Filtration Rate is a suitable alternative for these patients. ANION GAP 8 8 - 16 mmol/L 11/03/2024 11:28 AM T [facility] Blood Venipuncture / Unknown 11/03/2024 9:26 AM CDT 11/03/2024 10:49 AM CDT Omar Wheat MD CHEMISTRY ORDERABLES Final Res ult [facility]# [id number] [address] [facility] [place] [address] * PATHOLOGY (09/25/2024 10:32 AM CDT) CASE REPORT Surgical Pathology Report Case: [id number] Authorizing Provider: Omar Wheat MD Collected: 09/25/2024 10:32 AM Ordering Location: [facility] Received: 09/25/2024 10:32 AM Services [facility] Pathologist: Bobby Coulter MD Specimen: Other, specify, 8 slides, labeled: [id number] 8:08 AM CDT [facility] FINAL DIAGNOSIS Review of outside slides from [facility] ([place], [place]), [id number], collected 07/14/2024. Lung, right upper lobe, biopsy: - Well-differentiated pulmonary adenocarcinoma, acinar and lepidic patterns 8:08 AM CDT [facility] [place] [facility] at 0808 CDT MICROSCOPIC DESCRIPTION The slides are labeled [id number] and Kia Zuleta. Sections show a lepidic pattern of adenocarcinoma with nuclear enlargement and hyperchromasia of pneumocytes lining alveoli. There are also areas with an acinar pattern of invasion. Outside immunohistochemistry for TTF-1 highlights the enlarged pneumocytes. Napsin A is also positive. P63 is negative in the areas of interest. All staining controls are appropriately reactive. 5 8:08 AM T [facility] OPERATIVE PROCEDURE Needle biopsy 5 8:08 AM [facility] CLINICAL INFORMATION Z71.9 - Encounter for consultation [ICD-10-CM] 5 8:08 AM [facility] SUBMITTED BY Dr. Omar Wheat, [address], [place] [address]. [facility], Department of Pathology, [address] [place] [address] 5 8:08 AM [facility] MATERIAL RECEIVED Two H&E slides, 3 IHC slides, and 3 control slides. All material is returned. 5 8:08 AM [facility] COMMENT Special stain, immunohistochemical, and/or in situ hybridization results are interpreted with controls that demonstrate appropriate staining reactions. Note on use of immunohistochemistry reagents and in situ hybridization probes: These tests were developed and their performance characteristics determined by [facility], Department of Laboratory Medicine. It has not been cleared or approved by the U.S. Food and Drug Administration. The FDA has determined that such clearance or approval is not necessary. The test is used for clinical purposes. It should not be regarded as investigational or for research. This laboratory is certified to perform high complexity testing. Frozen section/operating room consultation, gross examination and dissection, and case sign out may have been performed in part or completely in the following laboratories: [facility], CLIA #[id number] [address] [place] [address] [facility][id number] [address] [place] [address] [facility], [facility] #[id number] [address] [place] [address] 8:08 AM CDT [facility] Tissue (Other, specify) 09/25/2024 10:32 AM CDT 09/25/2024 10:32 AM CDT Omar Wheat MD PATHOLOGY/CYTOLOGY ORDERABLES Final Result [facility]# [id number] [address] [place] [address] * PET BONE IMG W CT SKB MD (09/12/2024 3:59 PM CDT) Anatomical Region Laterality Modality Positron Emissio n Tomography (PET) Sivakumar Finch MD PE ORDERABLES Final Result * BREATHING CAPACITY TEST (08/25/2024 2:18 PM CDT) Sivakumar Finch MD PFT ORDERABLES Final Result from Last 3 Months Insurance [facility] [place] Address: [place] [address] [facility] [place] [address] Care Teams Distribution Spec Relationship Specialty Start Date End Date James Morales MD [address] [place] [phone] PCP - General Internal Medicine 08/14/24
--- OUTSIDE RECORDS SUMMARY | 2024-11-21 15:57 | XMS_ITS | Patient Health Record ---
Author Organization [facility] As NumberPicture Address [address] [place] [address] Care Team Providers Care Senior Functional Analyst Name Role Phone James Morales MD Primary Care Provider Unavail able Otto Allen Unavailable [phone] Marc Muhammad Unavailable [phone] Prateek Reyes Unavailable [phone] Allergies Allergen (clinical drug ingredient) Drug/Non Drug Allergy documented on EMR Reaction Allergy Type Onset Date Status Thorazine Unknown Drug Allergy 05/25/2023 Active Reason For Referral No Information Medications Medication SIG (Take, Route, Frequency, Duration) Notes Start Date End Date Status Memantine HCl 5 MG 1 tablet Orally twic e a day; Duration: 30 days Active Donepezil HCl 5 MG 1 tablet at bedtime Orally Once a day; Duration: 30 days Active FLUoxetine HCl 20 MG TAKE 1 CAPSULE BY M OUTH DAILY; Duration: 30 Active Lisinopril 10 MG 1 tablet Orally Once a day; Duration: 30 day(s) 05/19/2024 Active OLANZapine 20 MG 1 tablet at bedtime Orally Once a day; Duration: 30 days Active FLUoxetine HCl 40 MG TAKE 1 CAPSULE BY M OUTH DAILY; Duration: 30 Active Levothyroxine Sodium 100 MCG 1 tablet in the morning on an empty stomach Orally Once a day; Duration: 30 day(s) 05/19/2024 Active Atorvastatin Calcium 20 MG 1 tablet Oral ly Once a day; Duration: 30 day(s) 05/19/2024 Active Immunizations Vaccine Route Administration Date Status [...] Problem Depressed bipolar I disorder in remission (70819817) Bipolar disorder, in partial remission, most recent episode depressed (F31.75) 4 Active confirmed Problem Generalized anxiety disorder (60428172) Generalized anxiety disorder (F41.1) 4 Active confirmed Problem Primary insomnia (1412307) Primary insomnia (F51.01) 4 Active confirmed Problem Dementia (07804904) Dementia in other diseases classified elsewhere without behavioral disturbance (F02.80) Active confirmed Problem MCI (mild cognitive impairment) (G31.84) Active confirmed Vital Signs Heart Rate 88 /min 11/01/2024 Height-cm 147.32 cm 11/01/2024 Blood pressure diastolic 78 mm Hg 11/01/2024 Weight-kg 55.25 kg 11/01/2024 Height 58.00 in 11/01/2024 Blood pressure systolic 133 mm Hg 11/01/2024 Weight 121.8 lbs 11/01/2024 BMI 25.45 kg/m2 11/01/2024 Encounters Encounter Location Date Provider Diagnosis [facility] [employer] [address] [address] 02/07/2024 Otto Allen Generalized anxiety disorder F41.1 ; Bipolar disorder, in partial remission, most recent episode depressed F31.75 ; Primary insomnia F51.01 and MCI (mild cognitive impairment) G31.84 [facility] [employer] [address] [facility] [address] [place] [address] 03/01/2024 Otto Allen Generalized anxiety disorder F41.1 ; Bipolar disorder, in partial remission, most recent episode depressed F31.75 ; Primary insomnia F51.01 and MCI (mild cognitive impairment) G31.84 [employer] [facility] [address] [place] [address] 03/29/2024 Otto Allen Generalized anxiety disorder F41.1 ; Bipolar disorder, in partial remission, most recent episode depressed F31.75 ; Primary insomnia F51.01 and MCI (mild cognitive impairment) G31.84 [facility] [employer] [facility], [employer] [address] [place] [address] 05/19/2024 Prateek Corralb Generalized anxiety disorder F41.1 ; Bipolar disorder, in partial remission, most recent episode depressed F31.75 ; Primary insomnia F51.01 and MCI (mild cognitive impairment) G31.84 [facility] [employer] [facility] [address] [place] [address] 05/30/2024 Otto Allen Generalized anxiety disorder F41.1 ; Bipolar disorder, in partial remission, most recent episode depressed F31.75 ; Primary insomnia F51.01 and MCI (mild cognitive impairment) G31.84 [facility] [employer] [facility] [address] [place] [address] 06/26/2024 Otto Allen Bipolar disorder, in partial remission, most recent episode depressed F31.75 ; Encounter for screening for depression Z13.31 ; Generalized anxiety disorder F41.1 ; Primary insomnia F51.01 and Dementia in other diseases classified elsewhere without behavioral disturbance F02.80 [facility] [employer] [facility] [address] [place] [address] 07/25/2024 Otto Allen Bipolar disorder, in partial remission, most recent episode depressed F31.75 ; Encounter for screening for depression Z13.31 ; Generalized anxiety disorder F41.1 ; Primary insomnia F51.01 and Dementia in other diseases classified elsewhere without behavioral disturbance F02.[address] [employer] [facility] [address] [place] [address] 08/03/2024 Marc Muhammad MCI (mild cognitive impairment) G31.84 and Dementia in other diseases classified elsewhere without behavioral disturbance F02.[address] [employer] [facility] [address] [place] [address] 08/21/2024 Otto Allen Encounter for screen ing for depression Z13.31 ; Encounter for screening for cardiovascular disorders Z13.6 ; Bipolar disorder, in partial remission, most recent episode depressed F31.75 ; Generalized anxiety disorder F41.1 ; Primary insomnia F51.01 and Dementia in other diseases classified elsewhere without behavioral disturbance F02.[address] [facility] [address] [place] [address] 09/27/2024 Otto Allen Encounter for screen ing for depression Z13.31 ; Encounter for screening for cardiovascular disorders Z13.6 ; Bipolar disorder, in partial remission, most recent episode depressed F31.75 ; Generalized anxiety disorder F41.1 ; Primary insomnia F51.01 and Dementia in other diseases classified elsewhere without behavioral disturbance F02.80 [facility] [employer] [facility] [address] [place] [address] 11/01/2024 Otto Allen Bipolar disorder, in partial remission, most recent episode depressed F31.75 ; Generalized anxiety disorder F41.1 ; Primary insomnia F51.01 and Dementia in other diseases classified elsewhere without behavioral disturbance F02.80 [facility] [employer] [facility] [address] [place] [address] 11/03/2024 Otto Allen [facility], [facility] [address] [place] [address] 04/19/2024 Otto Allen [facility], [facility] [address] [place] [address] 04/21/2024 Otto Allen [facility], [facility] [address] [place] [address] 07/19/2024 Otto Allen [facility], [facility] [address] [place] [address] 07/21/2024 Otto Allen [facility], [facility] [address] [place] [address] 08/09/2024 Otto Allen [facility], [facility] [address] [place] [address] 08/28/2024 Otto Allen [facility], [facility] [address] [place] [address] 09/19/2024 Otto Allen Assessments Encounter Date Diagnosis (ICD [...] - Encourage the use of a pill office workforce planner to help with medication adherence. - [...] olanzapine was in [facility] and [facility]- will request records 06/26/2024 Bipolar disorder, in partial remission, most recent episode depressed (ICD-10 - F31.75) Pt and daughter report Olanzapine has been the best medication for her 07/25/2024 Bipolar disorder, in partial remission, most recent episode depressed (ICD-10 - F31.75) Pt and daughter report Olanzapine has been the best medication for her 09/27/2024 Encounter for screening for depression (ICD-10 - Z13.31) 11/01/2024 Bipolar disorder, in partial remission, most recent episode depressed (ICD-10 - F31.75) Pt and daughter report Olanzapine has been the best medication for her 08/21/2024 Encounter for screening for depression (ICD-10 - Z13.31) 08/03/2024 MCI (mild cognitive impairment) (ICD-10 - [...] such as shopping, food preparation, and financial aid officer. Confirms early functional changes consistent with early-stage cognitive vulnerability. Non-Pharmacologi c Treatment Recommendations 1. Cognitive Stimulation Therapy (DBAS) Engage in structured cognitive activities 2 to 3 times per week: Word puzzles, category games, visual-spatial tasks Activities that incorporate both memory and problem-solving skills Group or individualized DBAS programs may help preserve cognition and social [...] regular engagement. 08/21/2024 Encounter for screening for cardiovascular disorders (ICD-10 - Z13.6) 08/03/2024 Dementia in other diseases classified elsewhere without behavioral disturbance (ICD-10 - F02.80) 11/01/2024 Generalized anxiety disorder (ICD-10 - F41.1) olanzapine 05/30/2024 Bipolar disorder, in partial remission, most recent episode depressed (ICD-10 - F31.75) olanzapine 20mg hs was in [facility]- will request records 09/27/2024 Encounter for screening for cardiovascular disorders (ICD-10 - Z13.6) 07/25/2024 Encounter for screening for depression (ICD-10 - Z13.31) 06/26/2024 Encounter for screening for depression (ICD-10 [...] - Encourage the use of a pill office workforce planner to help with medication adherence. - [...] - Encourage the use of a pill office workforce planner to help with medication adherence. - [...] Primary insomnia (ICD-10 - F51.01) was in [facility]- will request records 09/27/2024 Bipolar disorder, in partial remission, most recent episode depressed (ICD-10 - F31.75) Pt and daughter report Olanzapine has been the best medication for her 11/01/2024 Primary insomnia (ICD-10 - F51.01) 08/21/2024 Bipolar disorder, in partial remission, most recent episode depressed (ICD-10 - F31.75) Pt and daughter report Olanzapine has been the best medication for her 08/21/2024 Generalized anxiety disorder (ICD-10 - F41.1) olanzapine 11/01/2024 Dementia in other diseases classified elsewhere without behavioral disturbance (ICD-10 - F02.80) 09/27/2024 Generalized anxiety disorder (ICD-10 - F41.1) olanzapine 05/30/2024 MCI (mild cognitive impairment) (ICD-10 - G31.84) cont donepezil, namenda was in [facility]- will request records 06/26/2024 Primary insomnia (ICD-10 [...] - Encourage the use of a pill office workforce planner to help with medication adherence. - [...] elsewhere without behavioral disturbance (ICD-10 - F02.80) 09/27/2024 Primary insomnia (ICD-10 - F51.01) 07/25/2024 Dementia in other diseases classified elsewhere without behavioral disturbance (ICD-10 - F02.80) 08/21/2024 Primary insomnia (ICD-10 - F51.01) 08/21/2024 Dementia in other diseases classified elsewhere without behavioral disturbance (ICD-10 - F02.80) 09/27/2024 Dementia in other diseases classified elsewhere without [...] Advise against using melatonin supplement or any [id number] sleep aids due to potential interactions Plan: [...] care planning: Plan: - Review records from [place] and [facility] to better understand the patient's needs and previous care - Explore assisted living options and requirements, considering the level of support needed for medication management and daily tasks - Collaborate with the patient and family to develop a comprehensive care plan that addresses both psychiatric and cognitive concerns was in [facility] and [facility]- will request records 06/26/2024 Other cont donepezil, [...] efforts have been made to correct them. 09/27/2024 Walker Zuleta presents with ongoing depression and is scheduled for lung cancer surgery in November. Major Depressive Disorder Assessment: Patient reports ongoing depressive symptoms, describing herself as being in a funk and feeling helpless. There has been minimal change in her condition since the last visit. The patient has a history of responding well to fluoxetine in the past. Currently on fluoxetine 20 mg, but has not experienced significant improvement at this dose. Plan: - Increase fluoxetine to 40 mg PO daily - Follow up in approximately one month to assess response to medication adjustment Lung Cancer Assessment: Patient is scheduled for lung cancer surgery on November 16. The case is described as optimal by multiple specialists (career center director, oncologist, and oncologist-surge on) due to its first-stage status and lack of metastasis. The planned procedure involves minimally invasive removal of the tumor without the need for radiation or chemotherapy. Plan: - Proceed with scheduled lung cancer surgery on November 16 - Patient to check in at 5 a.m. on the day of surgery - Consider remote follow-up appointment if patient unable to attend in person post-surgery Medication Misuse Assessment: Patient has a history of medication misuse, including taking clonazepam earlier than prescribed, leading to withdrawal symptoms. This resulted in the use of Benadryl as a sleep aid, with intake increasing to seven Benadryl tablets over the course of a month. There was concern about potential suicidal ideation related to Benadryl use, leading to a recommendation for psychiatric care upon release from a facility called [facility]. Plan: - Educate patient on proper medication use and risks of early consumption - Monitor for signs of medication misuse or self-medication - Assess for current suicidal ideation and provide appropriate interventions if necessary the note is transcribed using speech recognition software. It is a reflection of a visit with the patient. It might have some inaccuracy, including medication names and transcribing errors, though efforts have been made to correct them. 11/01/2024 Walker Zuleta, female patient with history of anxiety and antidepressant use, presenting with nervousness and concerns about life transitions. Anxiety Assessment: Patient reports feeling nervous and experiencing high anxiety, particularly related to life transitions and work-related stress. Previous issues with medication misuse and overuse were noted. The recent increase in antidepressant dosage has not shown significant improvement. Patient is currently living with her daughter, which may be a temporary arrangement. Social activity is expected to be beneficial for the patient's mental health. Plan: - Continue Prozac (fluoxetine) 40 mg daily - Maintain current dose for 60 days to assess efficacy during transition period - Encourage increased social activity - Follow-up appointment in 60 days - Patient instructed to call if any drastic changes occur before follow-up the note is transcribed using speech recognition software. It is a reflection of a visit with the patient. It might have some inaccuracy, including medication names and transcribing errors, though efforts have been made to correct them. Plan Of Treatment Future Test Test Name Order Date SLUMS Testing 07/25/2024 Next Appt Details Provider Name:Otto nunez, 01/03/2025 04:45:00 PM, [address], [facility] [address], [place], [address], Insurance Providers Payer Name Payer Address Payer Phone Subscriber Number Group Number Insured Name Patient Relationship to Insured Coverage Start Date Coverage End Date [employer] Replacement/ [employer]vant[employer] - [employer] [address] [place] [phone] [id number] [id number] Self - patient is the insured Medical (General) History Medical History History ICD Code Problems: Depressed bipolar I disorder i n partial remission Generalized anxiety disorder Primary insomnia , Imported from Highlights: Nathan moffett the office visit on August 15, 2024, the patient was seen by Dr. Sivakumar Finch at [facility]. The significant medical condition identified during this visit was a malignant neoplasm of the upper lobe of the left lung. This condition is categorized under CMS/HCC. No hospitalizations or additional testing were reported during this visit. Surgical History Surgery Date(Month/Year) Tonsilectomy/adenoids 04/12/1971
== END 2024-11-21 15:49 | disposition home or self-care (01) ==
PROVIDERS: PCP Emergency Medicine
DX: I08.3 Combined rheumatic disorders of mitral, aortic and tricuspid valves (principal)
CPT/HCPCS: 93306

== ENCOUNTER 2025-01-19 07:31 | Outpatient (CLI) | payer OTHER, SELFPAY ==
--- NOTE | ~2025-01-19 | CT_ITS ---
EXAMINATION:CT diagnostic chest w con DATE: 01/19/2025 07:59 INDICATION: Lung nodule. TECHNIQUE: Computed tomography (CT) of the chest was performed with 75 mL Omnipaque 350 intravenous contrast. Automated exposure control and iterative reconstruction technique were employed. The dose-length product (DLP) was 128.87 mGy-cm. COMPARISON: Chest CT 07/14/2024, 04/18/2024, 05/16/2024 FINDINGS: There is 11 mm nodule in right lung upper lobe. A calcified left lung nodule is consistent with old granulomatous disease. There is mild atelectasis bilaterally. No pleural effusion. The heart size is normal. No pericardial effusion. There are gallstones in the gallbladder, which is normal in size. There is an 18 mm cyst in right kidney. There is severe cervical and thoracic spondylosis. IMPRESSION: 1. 11 mm pulmonary nodule, stable from 04/18/2024, consistent with well- differentiated adenocarcinoma. Reviewed, dictated and finalized at location E. IMPRESSION: 1. 11 mm pulmonary nodule, stable from 04/18/2024, consistent with well-different iated adenocarcinoma.
[2025-01-19 07:55] LABS: Estimated Glomerular Filt Rate > 60
== END 2025-01-19 07:32 | disposition home or self-care (01) ==
PROVIDERS: PCP Emergency Medicine
DX: C34.91 Malignant neoplasm of unspecified part of right bronchus or lung (principal); R91.1 Solitary pulmonary nodule
CPT/HCPCS: 71260; Q9967

== ENCOUNTER 2025-03-02 08:29 | Outpatient (CLI) | payer OTHER, SELFPAY ==
--- OUTSIDE RECORDS SUMMARY | 2024-07-24 09:45 | XMS_ITS ---
Author Organization [facility] [employer] [facility] Address [address] [facility] [address] [place] [address] Care Team Providers Care Director Cloud Transformation Name Role Phone Andrew GARCIA, James Primary Care Provider Unavail able Otto Allen Unavailable [phone] REASON FOR VISIT late Social History Sex Assigned At : Social History Observation Description Sex Assigned At Female Encounters Encounter Location Date Provider Diagnosis [facility] [employer] [facility] [address] [facility] [address] [place] [address] 07/24/2024 Otto Allen Plan Of Treatment Next Appt Details Provider Name:Otto nunez, 03/26/2025 04:15:00 PM, [address], [facility] [address], [place], [address], Progress Notes * BOB ZULETA ADOB: [birth year] (74 yo F)Acc No.[id number]:07/24/2024 Patient: Willy PRIYANKAELLABOB Provider: JAVON LUDWIG :1950 A ge:74 Y S ex:Female Date:07/24/2024 Address:[id number] Pcp:James Morales MD Subjective: * Chief Complaints: * L ate * Electronic signature of JAVON Pina on 03/02/2025 at 08:33 AM PRODUCT ARCHITECT Sign off status: Pending * Provider: JAVON LUDWIG Date: 0 07/24/2024 Generated for Kristian bunn/Keron on: 1 05/02/2024 08:33 AM PRODUCT ARCHITECT
--- OUTSIDE RECORDS SUMMARY | 2025-03-02 08:33 | XMS_ITS | Patient Health Record ---
Author Organization [facility] Address [address] [place] [address] Care Team Providers Care Rn Clinical Quality Name Role Phone James Morales MD Primary Care Provider Unavail able Otto Allen Unavailable [phone] Marc Muhammad Unavailable [phone] Prateek Reyes Unavailable [phone] Allergies Allergen (clinical drug ingredient) Drug/Non Drug Allergy documented on EMR Reaction Allergy Type Onset Date Status Thorazine Unknown Drug Allergy 05/25/2023 Active Reason For Referral No Information Medications Medication SIG (Take, Route, Frequency, Duration) Notes Start Date End Date Status Memantine HCl 5 MG Tablet 1 tablet Orall y twice a day; Duration: 30 days 01/03/2025 Active Donepezil HCl 5 MG Tablet 1 tablet at be dtime Orally Once a day; Duration: 30 days 01/03/2025 Active OLANZapine 20 MG Tablet TAKE 1 TABLET BY MOUTH DAILY AT BEDTIME; Duration: 30 Active Lisinopril 10 MG Tablet 1 tablet Orally Once a day; Duration: 30 day(s) 05/19/2024 Active Atorvastatin Calcium 20 MG Tablet 1 tablet Orally Once a day; Duration: 30 day(s) 05/19/2024 Active FLUoxetine HCl 40 MG Capsule TAKE 1 CAPS ULE BY MOUTH DAILY; Duration: 30 Active Levothyroxine Sodium 100 MCG Tablet 1 tablet in the morning on an empty stomach Orally Once a day; Duration: 30 day(s) 05/19/2024 Active Austedo XR 30 MG Tablet Extended Release 24 Hour 1 tablet Orally Once a day; Duration: 30 days 01/04/2025 Active FLUoxetine HCl 20 MG Capsule TAKE 1 CAPS ULE BY MOUTH DAILY; Duration: 30 Active Immunizations Vaccine Route Administration Date Status [...] History Observation Description Sex Assigned At Female Social History Additional Details Category Social Info Options Details Migrated Social History Migrated Social History Alcohol Intake: None 05/25/2023,Tobacco Years: Former smoker 10/06/2021 Drug/Alcohol: Do you smoke marijuana? Den ies Do you drink alcohol? No Problems Problem Type SNOMED Code ICD Code Onset Dates Problem Status W/U Status Risk Notes Problem Depressed bipolar I disorder in remission (92424257) Bipolar disorder, in partial remission, most recent episode depressed (F31.75) 4 Active confirmed Problem Generalized anxiety disorder (83582073) Generalized anxiety disorder (F41.1) 4 Active confirmed Problem Primary insomnia (5936588) Primary insomnia (F51.01) 4 Active confirmed Problem Dementia (11702658) Dementia in other diseases classified elsewhere without behavioral disturbance (F02.80) Active confirmed Problem Mild cognitive disorder (079953222) MCI (mild cognitive impairment) (G31.84) Active confirmed Vital Signs Heart Rate 67 /min 01/03/2025 Height-cm 147.32 cm 01/03/2025 Blood pressure diastolic 83 mm Hg 01/03/2025 Weight-kg 54.43 kg 01/03/2025 Height 58.00 in 01/03/2025 Blood pressure systolic 170 mm Hg 01/03/2025 Weight 120 lbs 01/03/2025 BMI 25.08 kg/m2 01/03/2025 Encounters Encounter Location Date Provider Diagnosis [facility] [employer] [facility] [address] [address] 03/29/2024 Otto Allen Generalized anxiety disorder F41.1 ; Bipolar disorder, in partial remission, most recent episode depressed F31.75 ; Primary insomnia F51.01 and MCI (mild cognitive impairment) G31.84 [facility] [employer] [facility], [place] [address] [facility] [address] [place] [address] 05/19/2024 Prateek Reyes Generalized anxiety disorder F41.1 ; Bipolar disorder, in partial remission, most recent episode depressed F31.75 ; Primary insomnia F51.01 and MCI (mild cognitive impairment) G31.84 [facility] [address] [facility] [address] [place] [address] 05/30/2024 Otot Cormieroza Generalized anxiety disorder F41.1 ; Bipolar disorder, in partial remission, most recent episode depressed F31.75 ; Primary insomnia F51.01 and MCI (mild cognitive impairment) G31.84 [facility] [address] [facility] [address] [place] [address] 06/26/2024 Otto Allen Bipolar disorder, in partial remission, most recent episode depressed F31.75 ; Encounter for screening for depression Z13.31 ; Generalized anxiety disorder F41.1 ; Primary insomnia F51.01 and Dementia in other diseases classified elsewhere without behavioral disturbance F02.80 [facility] [employer] [facility] [address] [address] 07/25/2024 Otto Allen Bipolar disorder, in partial remission, most recent episode depressed F31.75 ; Encounter for screening for depression Z13.31 ; Generalized anxiety disorder F41.1 ; Primary insomnia F51.01 and Dementia in other diseases classified elsewhere without behavioral disturbance F02.80 [facility] [employer] [facility] [address] [address] 08/03/2024 Marc Muhammad MCI (mild cognitive impairment) G31.84 and Dementia in other diseases classified elsewhere without behavioral disturbance F02.80 [facility] [employer] [facility] [address] [facility] [address] [place] [address] 08/21/2024 Ottomadyson Cormieroza Encounter for screen ing for depression Z13.31 ; Encounter for screening for cardiovascular disorders Z13.6 ; Bipolar disorder, in partial remission, most recent episode depressed F31.75 ; Generalized anxiety disorder F41.1 ; Primary insomnia F51.01 and Dementia in other diseases classified elsewhere without behavioral disturbance F02.80 [facility], [facility] [address] [place] [address] 09/27/2024 Otto Allen Encounter for screen ing for depression Z13.31 ; Encounter for screening for cardiovascular disorders Z13.6 ; Bipolar disorder, in partial remission, most recent episode depressed F31.75 ; Generalized anxiety disorder F41.1 ; Primary insomnia F51.01 and Dementia in other diseases classified elsewhere without behavioral disturbance F02.80 [facility], [facility] [address] [place] [address] 11/01/2024 Ottomadyson Sherwooda Bipolar disorder, in partial remission, most recent episode depressed F31.75 ; Generalized anxiety disorder F41.1 ; Primary insomnia F51.01 and Dementia in other diseases classified elsewhere without behavioral disturbance F02.80 [facility], [facility] [address] [place] [address] 01/03/2025 Otto Sherwooda Bipolar disorder, in partial remission, most recent episode depressed F31.75 ; Generalized anxiety disorder F41.1 ; Primary insomnia F51.01 ; Dementia in other diseases classified elsewhere without behavioral disturbance F02.80 and 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 [facility], [facility] [address] [place] [address] 04/19/2024 [facility], [facility] [address] [place] [address] 04/21/2024 [facility], [facility] [address] [place] [address] 07/19/2024 [facility], [facility] [address] [place] [address] 07/21/2024 [facility], [facility] [address] [place] [address] 08/09/2024 [facility], [facility] [address] [place] [address] 08/28/2024 [facility] [address] [place] [address] 09/19/2024 [facility], [facility] [address] [place] [address] 11/03/2024 Otto Allen [facility] [employer] [facility] [address] [place] [address] 01/09/2025 Otto Allen Dementia in other diseases classified elsewhere without behavioral disturbance F02.80 and Bipolar disorder, in partial remission, most recent episode depressed F31.75 [facility] [employer] [facility] [address] [place] [address] 01/25/2025 Ottomadyson Sherwooda [facility] [employer] [facility] [address] [place] [address] 02/02/2025 Ottomadyson Allen [facility] [employer] [facility] [address] [place] [address] 02/09/2025 Ottomadyson Allen Assessments Encounter Date Diagnosis (ICD Code) Assessment Notes Treatment Notes Treatment Clinical Notes Section Notes 03/29/2024 Generalized anxiety disorder (ICD-10 - F41.1) [...] disorder (ICD-10 - F41.1) olanzapine was in [facility]- will request records 06/26/2024 Bipolar disorder, [...] such as shopping, food preparation, and financial advisor trainee. Confirms early functional changes consistent with early-stage cognitive vulnerability. Non-Pharmacologi c Treatment Recommendations 1. Cognitive Stimulation Therapy (ADOBE BLOCK MAKER) Engage in structured cognitive activities 2 to 3 times per week: Word puzzles, category games, visual-spatial tasks Activities that incorporate both memory and problem-solving skills Group or individualized ADOBE BLOCK MAKER programs may help preserve cognition and social [...] for screening for depression (ICD-10 - Z13.31) 09/27/2024 Encounter for screening for depression (ICD-10 - Z13.31) 11/01/2024 Bipolar disorder, in partial remission, most recent episode depressed (ICD-10 - F31.75) Pt and daughter report Olanzapine has been the best medication for her 01/03/2025 Bipolar disorder, in partial remission, most recent episode depressed (ICD-10 - F31.75) Pt and daughter report Olanzapine has been the best medication for her 01/03/2025 Generalized anxiety disorder (ICD-10 - F41.1) olanzapine 01/09/2025 Dementia in other diseases classified elsewhere without behavioral disturbance (ICD-10 - F02.80) 01/09/2025 Bipolar disorder, in partial remission, most recent episode depressed (ICD-10 - F31.75) 01/03/2025 Primary insomnia (ICD-10 - F51.01) 11/01/2024 Generalized anxiety disorder (ICD-10 - F41.1) olanzapine 08/21/2024 Encounter for screening for cardiovascular disorders (ICD-10 - Z13.6) 09/27/2024 Encounter for screening for cardiovascular disorders (ICD-10 - Z13.6) 07/25/2024 Encounter for screening for depression (ICD-10 - Z13.31) 05/30/2024 Bipolar disorder, in partial remission, most recent episode depressed (ICD-10 - F31.75) olanzapine 20mg hs was in [facility]- will request records 08/03/2024 Dementia in other [...] most recent episode depressed (ICD-10 - F31.75) 05/19/2024 Primary insomnia (ICD-10 - F51.01) 03/29/2024 [...] follow-up visits. - Reevaluate in one month. 07/25/2024 Generalized anxiety disorder (ICD-10 - F41.1) olanzapine 06/26/2024 Generalized anxiety disorder (ICD-10 - F41.1) olanzapine 05/30/2024 Primary insomnia (ICD-10 - F51.01) was in [facility]- will request records 08/21/2024 Bipolar disorder, in partial remission, most recent episode depressed (ICD-10 - F31.75) Pt and daughter report Olanzapine has been the best medication for her 09/27/2024 Bipolar disorder, in partial remission, most recent episode depressed (ICD-10 - F31.75) Pt and daughter report Olanzapine has been the best medication for her 11/01/2024 Primary insomnia (ICD-10 - F51.01) 01/03/2025 Dementia in other diseases classified elsewhere without behavioral disturbance (ICD-10 - F02.80) 11/01/2024 Dementia in other diseases classified elsewhere without behavioral disturbance (ICD-10 - F02.80) 01/03/2025 Drug induced subacute dyskinesia (ICD-10 - G24.01) Electronic Prior Authorization was requested for Austedo XR 30 MG Tablet Extended Release 24 Hour. Provider can order medication once approval received. 09/27/2024 Generalized anxiety disorder (ICD-10 - F41.1) olanzapine 08/21/2024 Generalized anxiety disorder (ICD-10 - F41.1) olanzapine 05/30/2024 MCI (mild cognitive impairment) (ICD-10 - G31.84) cont doneperamos singh was in [facility]- will request records 06/26/2024 Primary insomnia (ICD-10 - F51.01) improving 07/25/2024 Primary insomnia (ICD-10 - F51.01) improving 03/29/2024 MCI (mild cognitive impairment) (ICD-10 - [...] F02.80) 09/27/2024 Primary insomnia (ICD-10 - F51.01) 08/21/2024 Dementia [...] Advise against using melatonin supplement or any [id number] sleep aids due to potential interactions Plan: [...] care planning: Plan: - Review records from Home and [facility] to better understand the patient's needs and previous care - Explore assisted living options and requirements, considering the level of support needed for medication management and daily tasks - Collaborate with the patient and family to develop a comprehensive care plan that addresses both psychiatric and cognitive concerns was in [facility]- will request records 06/26/2024 Other cont [...] is described as optimal by multiple specialists (student services coordinator, oncologist, and oncologist-surge on) due to its [...] care upon release from a facility called [facility]. Plan: - Educate patient on proper medication [...] efforts have been made to correct them. 01/03/2025 Walker Zuleta, a female patient with a history of antipsychotic medication use, presents with concerns about living arrangements, medication refills, and involuntary movements. Tardive Dyskinesia Assessment: Patient exhibits signs consistent with tardive dyskinesia, likely due to long-term exposure to antipsychotic medications. Symptoms include hand tremors, leg movements, jaw movements, and eye blinking. The condition persisted even when all medications were discontinued during a hospital stay, suggesting irreversible changes. The involuntary movements are more pronounced in one arm and worsen when the patient is seated without stabilization for extended periods. Plan: - Initiate Austedo XR for tardive dyskinesia management: - Starter pack prescribed with titration schedule: - Week 1: 12 mg daily - Week 2: 18 mg daily - Week 3: 24 mg daily - Week 4 and beyond: 30 mg daily - May increase to 48 mg daily if needed - Follow-up in 3 months to assess efficacy and tolerability of Austedo XR Cognitive Impairment Assessment: Patient demonstrates significant cognitive fluctuations, with periods of clarity alternating with confusion. There are no identifiable triggers or warning signs for these cognitive changes. The patient requires extended time to process and respond to simple choices, raising concerns about safety for independent living. A state evaluation has been conducted to assess eligibility for assisted living or snf care. Plan: - Continue to explore appropriate living arrangements based on state evaluation results and safety concerns - Monitor cognitive status and functional abilities the note is transcribed using speech recognition software. It is a reflection of a visit with the patient. It might have some inaccuracy, including medication names and transcribing errors, though efforts have been made to correct them. Plan Of Treatment Future Test Test Name Order Date SLUMS Testing 07/25/2024 Next Appt Details Provider Name:Otto nunez, 03/26/2025 04:15:00 PM, [address], [facility] [address], [place], [address], Insurance Providers Payer Name Payer Address Payer Phone Subscriber Number Group Number Insured Name Patient Relationship to Insured Coverage Start Date Coverage End Date [employer] Medicare Replacement/ Advantage - [employer]mo [address] [place] [phone] [id number] [id number] [id number] Self - patient is the insured Medical (General) History Medical History History ICD Code Problems: Depressed bipolar I disorder i n partial remission Generalized anxiety disorder Primary insomnia , Imported from Highlights: Nathan moffett the office visit on August 15, 2024, the patient was seen by Dr. Sivakumar Finch at [facility]. The significant medical condition identified during this visit was a malignant neoplasm of the upper lobe of the left lung. This condition is categorized under CMS/HCC. No hospitalizations or additional testing were reported during this visit. Surgical History Surgery Date(Month/Year) Tonsilectomy/adenoids 04/12/1971
--- OUTSIDE RECORDS SUMMARY | 2025-03-02 08:33 | XMS_ITS | Clinical Summary ---
Author Organization [facility] Joie Gleason Address [address] [place] [address] Care Team Providers Care Inker And Opaquer Name Role Phone James Morales MD Primary Care Provider + [phone] Allergies Active Allergy Reactions Criticality Noted Date Comments Chlorpromazine Unknown 05/25/2023 Medications atorvastatin (LIPITOR) 20 mg tablet Take 20 mg by mouth daily. 05/19/19 25 Active OLANZapine (ZyPREXA) 20 mg tablet 20 mg daily at bedtime. Active donepeziL (ARICEPT) 5 mg tablet Take 5 mg by mouth daily at bedtime. Active memantine (NAMENDA) 5 mg Tablet Take 5 mg by mouth 2 times daily. Active levothyroxine 100 mcg tablet Take 100 mcg by mouth daily in the morning. 05/19/19 25 Active Magnesium 200 mg Tablet Take by mouth. Active melatonin 5 mg Tablet Take by mouth nightly as needed. Active Austedo XR 30 mg Tablet Sustained Release 24HR 1 tablet Orally Once a day; Duration: 30 days 01/05/20 25 Active FLUoxetine (PROzac) 40 mg capsule Take 1 Capsule (40 mg) by mouth daily. 30 Capsule 5 6:41 PM TUFTING MACHINE FIXER 02/16/20 25 Active lisinopriL (PRINIVIL) 10 mg tablet Take 10 mg by mouth daily. 05/19/19 25 025 Discontinued FLUoxetine (PROzac) 20 mg capsule Take 20 mg by mouth daily. 025 Discontinued HYDROcodone-aceta minophen (NORCO) 5-325 mg tabletIndications :S/P pneumonectomy Take 1 Tablet by mouth every 4 hours as needed for Pain. Max Daily Amount: 6 Tablets 42 Tablet 02/16/20 025 HYDROcodone-aceta minophen (NORCO) 5-325 mg tablet Take 1 Tablet by mouth every 4 hours as needed for pain. Max Daily Amount: 6 Tablets 42 Tablet 11:27 AM TUFTING MACHINE FIXER 02/16/20 025 Discontinued Active Problems Problem Noted Date Diagnosed Date Mild cognitive disorder 11/03/2024 Depressed bipolar I disorder in remission 2023 Generalized anxiety disorder 05/25/2023 Primary insomnia 05/25/2023 Resolved Problems Problem Noted Date Diagnosed Date Resolved Date Adenocarcinoma of lung, stage 2, right 02/12/2025 02/15/2025 Dementia 11/03/2024 02/15/2025 Encounters Date Type Department Care Team Description 02/23/[address] [facility] Cardiovas and Thor Surg at [address] [place] [address] Omar Aviles MD 02/23/[address] [facility] Cardiovas and Thor Surg at [place] [address] [address] [facility] [address] [place] [address] Omar Aviles MD 02/20/2025 External Device Data [facility] ABSTRACTION Provider, Abstract 02/20/2025 External Device Data [facility] ABSTRACTION Provider, Abstract 02/20/2025 External Device Data [facility] ABSTRACTION Provider, Abstract 02/14/2025 Telephone [facility] [address] [facility] [address] [place] [address] Walt Fontenot MD Consult/ ENT Folder Inspector (Provided ENT on site nurse (02/14/2025) Dr. Walt Fontenot to be found in easy call. ) 02/13/2025 External Device Data [facility] ABSTRACTION Provider, Abstract 02/13/2025 External Device Data [facility] ABSTRACTION Provider, Abstract 02/12/2025 12:18 PM TUFTING MACHINE FIXER Anesthesia Event [facility] CV Operating Room [address] [place] [address] Cliff Carter DO 02/12/2025 11:45 AM TUFTING MACHINE FIXER - 02/12/2025 4:50 PM TUFTING MACHINE FIXER Surgery [facility] Operating Room [address] [place] [address] Omar Aviles MD LUNG LOBECTOMY ROBOTIC XI THORACOSCOPIC 02/12/2025 9:27 AM TUFTING MACHINE FIXER - 02/15/2025 4:40 PM TUFTING MACHINE FIXER Hospital Encounter [facility] Surgical Progressive Care [address] [place] [address] Omar Aviles MD Generalized anxiety disorder Discharge Disposition: Home Health Care Svc 02/12/2025 Travel 02/07/2025 External Device Data [facility] ABSTRACTION Provider, Abstract 02/07/2025 External Device Data [facility] ABSTRACTION Provider, Abstract 02/06/2025 External Device Data [facility] ABSTRACTION Provider, Abstract 01/31/2025 External Device Data [facility] ABSTRACTION Provider, Abstract 01/31/2025 External Device Data [facility] ABSTRACTION Provider, Abstract 01/29/2025 9:31 AM CDT - 01/29/2025 5:15 PM CDT Hospital Encounter [facility] Interventional Care [address] [place] [phone] Omar Aviles MD Generalized anxiety disorder Discharge Disposition: Home or Self Care 01/29/2025 Orders Only [facility] Cardiovas and Thor [facility]urg at [address] [address] Omar Aviles MD Adenocarcinoma of right lung (CMS/HCC) (Primary Dx) 01/25/2025 8:45 AM CDT Video Visit [facility] Cardiovas and Thor [facility] at [address] [place] [phone] Omar Aviles MD Adenocarcinoma of right lung (CMS/HCC) (Primary Dx) 01/04/[address] [facility] Cardiovas and Thor Surg at [address] [place] [phone] Omar Aviles MD Information 12/28/[address] [facility] Cardiovas and Thor Surg at [address] [place] [phone] Omar Aviles MD 12/20/2024 Orders Only [facility] Cardiovas and Thor Surg at [address] [phone] Omar Aviles MD 12/12/[address] [facility] Cardiovas and Thor Surg at [address] [phone] Omar Aviles MD Information 12/08/2024 4:00 PM CDT Telephone Check Up [facility] Heart and Vascular At [address] [place] [address] Osorio Loco MD 12/01/[address] [facility] Cardiovas and Thor Surg at [address] [phone] Omar Aviles MD Results 11/30/[address] [facility] Cardiovas and Thor Surg at [address] [phone] Omar Aviles MD from Last 3 Months Family History Medical [...] drink = 0.6 oz pur e alcohol) Food Insecurity Answer Date Recorded Do you find you are eating l ess than you should because you can t pay for food? No 02/12/2025 Transportation Needs Answer Date Record ed Have you gone without health care because you didn t have a way to get there? Or worry about transportation for future doctor visits, potato picker medication, etc.? No 2024 Housing Stability Answer Date Recorded Do you worry you won t have a steady place to sleep or struggle to pay rent or mortgage? No 02/12/2025 Utility Needs Answer Date Recorded Do you have difficulty payin g for utility costs (electric, water or gas bills)? No 02/12/2025 Medication Needs Answer Date Recorded Have you skipped taking medi cation due to cost or worry you can t afford new medications? No 02/12/2025 Feeling Safe Answer Date Recorded Are you in a relationship wi th someone who hurts you emotionally and/or physically? No 02/12/2025 Food Insecurity Answer Date Recorded Patient needs follow up regardin 11/03/2024 Transportation Needs Answer Date Record ed Patient needs follow up regardin 11/03/2024 Utility Needs Answer Date Recorded Patient needs follow up regardin 11/03/2024 Comments Unknown Sex and Gender Information Value Date Recorded Sex Assigned at Not on file Legal Sex Female 3:09 PM CDT Gender Identity Not on file Sexual Orientation Not on file Last Filed Vital Signs Vital Sign Reading Time Taken Comments Blood Pressure 146/48 02/15/2025 7:00 AM TUFTING MACHINE FIXER Pulse 71 02/15/2025 7:00 AM TUFTING MACHINE FIXER Temperature 36.4 C (97.6 F) 02/15/2025 6:58 AM TUFTING MACHINE FIXER Respiratory Rate 22 02/15/2025 7:00 AM TUFTING MACHINE FIXER Oxygen Saturation 94% 02/15/2025 7:00 AM TUFTING MACHINE FIXER Inhaled Oxygen Concentration - - Weight 54.4 kg (120 lb) 02/12/2025 9:50 AM TUFTING MACHINE FIXER Height 148.6 cm (4' 10.5) 02/12/2025 9:50 AM CS T Body Mass Index 24.65 02/12/2025 9:50 AM TUFTING MACHINE FIXER Plan of Treatment Upcoming Encounters Date Type Department Care Team (Late st Contact Info) Description 03/13/2025 3:45 PM TUFTING MACHINE FIXER Office Visit [facility] Heart and Vascular At [place] [address] [facility] [address] [place] [address] Osorio Loco MD [address] [place] [address] Road [address] [place] [address] 03/14/2025 12:30 PM TUFTING MACHINE FIXER Video Visit [facility] Cardiovas and Thor Surg at [facility] [address] [facility] [address] [place] [address] Omar Aviles MD [address] [facility] [address] [facility] [address] [place] [address] Health Maintenance Due Date Last Done Comments DTAP/TDAP/TD VACCINES (1 - Tdap) 1967 PNEUMOCOCCAL VACCINE 50+ YEARS (1 of 1 - PCV) 04/20/18 99 ZOSTER VACCINE (1 of 2) 1998 OSTEOPOROSIS SCREENING 2013 RSV VACCINE (60+ or ) (1 - 1-dose 75+ series) 2023 Medicare Advantage ([place]) Prev entative Visit/Annual Wellness Visit 04/12/2024 INFLUENZA VACCINE (#1) 2024 12/02/2022 Medical Devices Implanted Type Area Room Designer Device Identifier Shelf Expiration Date Model / Serial / Lot Sealant Progel Pleural 4ml [id number] - [id number] Implanted:Qty : 1 on 02/12/2025 by Omar Aviles MD at [facility] Sealant Right: Chest BARD DAVOL [id number] 01/10/2026 [id number] / / [id number] Procedures Procedure Name Priority Date/Time Associated Diagnosis Comments POC GLUCOSE Routine 02/15/2025 11:49 AM TUFTING MACHINE FIXER POC GLUCOSE Routine 02/15/2025 7:42 AM TUFTING MACHINE FIXER XR CHEST PA OR AP 1 VW Routine 02/15/2025 6:23 AM TUFTING MACHINE FIXER POC GLUCOSE Routine 02/14/2025 9:47 PM TUFTING MACHINE FIXER POC GLUCOSE Routine 02/14/2025 5:50 PM TUFTING MACHINE FIXER XR CHEST PA OR AP 1 VW Routine 02/14/2025 2:32 PM TUFTING MACHINE FIXER POC GLUCOSE Routine 02/14/2025 12:13 PM TUFTING MACHINE FIXER POC GLUCOSE Routine 02/14/2025 8:42 AM TUFTING MACHINE FIXER XR CHEST PA OR AP 1 VW Routine 02/14/2025 4:31 AM TUFTING MACHINE FIXER BASIC METABOLIC PANEL Routine 02/14/2025 12:52 AM TUFTING MACHINE FIXER POC GLUCOSE Routine 02/13/2025 9:43 PM TUFTING MACHINE FIXER POC GLUCOSE Routine 02/13/2025 5:55 PM TUFTING MACHINE FIXER POC GLUCOSE Routine 02/13/2025 11:47 AM TUFTING MACHINE FIXER POC GLUCOSE Routine 02/13/2025 9:51 AM TUFTING MACHINE FIXER XR CHEST PA OR AP 1 VW Routine 02/13/2025 5:20 AM TUFTING MACHINE FIXER BASIC METABOLIC PANEL Routine 02/13/2025 1:27 AM TUFTING MACHINE FIXER CBC WITH DIFFERENTIAL Routine 02/13/2025 1:27 AM TUFTING MACHINE FIXER EKG 12-LEAD Stat 02/12/2025 11:33 PM TUFTING MACHINE FIXER XR CHEST PA OR AP 1 VW Stat 02/12/2025 4:16 PM TUFTING MACHINE FIXER DC ANESTHESIA BLOCK PB PLACEHOLDER CHARGE Routine 02/12/2025 4:09 PM TUFTING MACHINE FIXER PATHOLOGY Pathology 02/12/2025 2:09 PM TUFTING MACHINE FIXER Adenocarcinoma of lung, stage 2, right (CMS/HCC) DC ANES INSERT CATH, ART, PERCUT, SHORTTERM Routine 02/12/2025 1:21 PM TUFTING MACHINE FIXER DC ANES INSERT ENDOTRACHEAL AIRWAY Routine 02/12/2025 12:24 PM TUFTING MACHINE FIXER LYMPH NODE DISSECTION ROBOTIC XI 02/12/2025 11:45 AM TUFTING MACHINE FIXER Adenocarcinoma of lung, stage 2, right (CMS/HCC) DC THORACOSCOPY W/LOBECTOMY SINGLE LOBE 02/12/2025 11:45 AM TUFTING MACHINE FIXER Adenocarcinoma of lung, stage 2, right (CMS/HCC) TYPE AND SCREEN Stat 02/12/2025 10:23 AM TUFTING MACHINE FIXER PREPARE RED BLOOD CELLS Routine 02/12/2025 9:29 AM TUFTING MACHINE FIXER PREPARE RED BLOOD CELLS Routine 02/12/2025 9:29 AM TUFTING MACHINE FIXER TYPE AND SCREEN Stat 01/29/2025 10:23 AM CDT BASIC METABOLIC PANEL Stat 01/29/2025 10:23 AM CDT PROTIME-INR Routine 01/29/2025 10:23 AM CDT PTT Routine 01/29/2025 10:23 AM CDT HEMOGLOBIN AND HEMATOCRIT Stat 01/29/2025 10:23 AM CDT PREPARE RED BLOOD CELLS Routine 01/29/2025 9:46 AM CDT PREPARE RED BLOOD CELLS Routine 01/29/2025 9:46 AM CDT PREPARE RED BLOOD CELLS Routine 01/29/2025 9:43 AM CDT PREPARE RED BLOOD CELLS Routine 01/29/2025 9:43 AM CDT from Last 3 Months Results * (ABNORMAL) POC GLUCOSE (02/15/2025 11:49 AM TUFTING MACHINE FIXER) Only the most recent of10 resultswithin the time period is included. GLUCOSE POC 135(H) 74 - 99 mg/dL 02/15/2025 11:49 AM TUFTING MACHINE FIXER [facility] SPECIMEN SOURCE, GLUCOSE POC Whole Blood 02/15/2025 11:49 AM [facility] COMMENT, GLU POC Alerted Nurse/MELANIE/D r 02/15/2025 11:49 AM [facility] Blood, whole 02/15/2025 11:4 9 AM TUFTING MACHINE FIXER 02/15/2025 11:56 AM TUFTING MACHINE FIXER Omar Aviles MD POINT OF CARE TESTING Final Re sult [facility] CLIA# [id number] [address] [employer] [facility] [employer] [place] [address] * XR CHEST PA OR AP 1 VW (02/15/2025 6:23 AM TUFTING MACHINE FIXER) Only the most recent of5 resultswithin the time period is included. Anatomical Region Laterality Modality Chest Computed Radiogr aphy 02/15/2025 6:23 AM TUFTING MACHINE FIXER Impressions 02/15/2025 9:02 AM TUFTING MACHINE FIXER IMPRESSION: 1. Stable small right pneumothorax and subcutaneous emphysema. DICTATION LOCATION: Location 1 - [facility] Narrative 02/15/2025 9:02 AM TUFTING MACHINE FIXER CHEST SINGLE VIEW HISTORY: Tube Placement. 74-year-old female DATE: 02/15/2025 at 0533 hours COMPARISON: X-ray 02/14/2025 FINDINGS: SUPPORT DEVICES: Stable right chest tube CHEST: Lung volumes are decreased. Heart size is enlarged. The pulmonary vasculature is slightly prominent. Stable small right pneumothorax. Elevation of the right hemidiaphragm. Subcutaneous emphysema in the right hemithorax is stable. Minimal left basilar subsegmental atelectasis. Suture line in the right hilum. Diffuse osteopenia. Degenerative changes of both shoulders. Procedure Note Scotty Acharya MD - 02/15/2025 CHEST SINGLE VIEW HISTORY: Tube Placement. 74-year-old female DATE: 02/15/2025 at 0533 hours COMPARISON: X-ray 02/14/2025 FINDINGS: SUPPORT DEVICES: Stable right chest tube CHEST: Lung volumes are decreased. Heart size is enlarged. The pulmonary vasculature is slightly prominent. Stable small right pneumothorax. Elevation of the right hemidiaphragm. Subcutaneous emphysema in the right hemithorax is stable. Minimal left basilar subsegmental atelectasis. Suture line in the right hilum. Diffuse osteopenia. Degenerative changes of both shoulders. IMPRESSION: 1. Stable small right pneumothorax and subcutaneous emphysema. DICTATION LOCATION: Location 1 - [facility] Vineet Berman PA-C DIAGNOSTIC IMAGING ORDERABL ES Final Result * (ABNORMAL) BASIC METABOLIC PANEL (02/14/2025 12:52 AM TUFTING MACHINE FIXER) Only the most recent of3 resultswithin the time period is included. SODIUM 140 136 - 145 mmol/L 02/14/2025 2:09 AM [facility] POTASSIUM 4.1 3.5 - 5.0 mmol/L 02/14/2025 2:09 AM [facility] CHLORIDE 105 98 - 107 mmol/L 02/14/2025 2:09 AM [facility] CO2 28 22 - 29 mmol/L 02/14/2025 2:09 AM [facility] CALCIUM 8.5(L) 8.6 - 10.2 mg/dL 02/14/2025 2:09 AM [facility] BUN 18 8 - 23 mg/dL 02/14/2025 2:09 AM [facility] CREATININE 0.88 0.51 - 0.95 mg/dL 02/14/2025 2:09 AM [facility] Comment:The GFR result is no t clinically significant on patients <18 or >70 years of age. GLUCOSE 99 74 - 99 mg/dL 02/14/2025 2:09 AM [facility] GFR >60 mL/min/1.7 3 sq meter 02/14/2025 2:09 AM [facility] Comment:eGFR calculated with 2020 CKD-EPI equation. Vegetarian diet, extremely high or low muscle mass, and may affect results. Cystatin C with Glomerular Filtration Rate is a suitable alternative for these patients. ANION GAP 7(L) 8 - 16 mmol/L 02/14/2025 2:09 AM [facility] Blood Venipuncture / Unknown 02/14/2025 12:52 AM TUFTING MACHINE FIXER 02/14/2025 1:30 AM TUFTING MACHINE FIXER Vineet Berman PA-C CHEMISTRY ORDERABLES Final Result [facility] [employer] [facility] CLIA# [id number] [address] [facility] [place] [address] * (ABNORMAL) CBC WITH DIFFERENTIAL (02/13/2025 1:27 AM TUFTING MACHINE FIXER) WBC 14.3(H) 4.0 - 9.8 K/uL 02/13/2025 2:08 AM [facility] RBC 3.72(L) 3.90 - 4.90 M/uL 02/13/2025 2:08 AM [facility] HEMOGLOBIN 11.6(L) 11.8 - 14.8 g/dL 02/13/2025 2:08 AM [facility] HEMATOCRIT 34.0(L) 35.5 - 44.0 % 02/13/2025 2:08 AM [facility] MCV 91.4 82.0 - 99.0 fL 02/13/2025 2:08 AM [facility] MCH 31.2 27.2 - 32.6 pg 02/13/2025 2:08 AM [facility] MCHC 34.1 31.5 - 35.5 g/dL 02/13/2025 2:08 AM [employer] [facility] RDW 13.4 11.5 - 14.5 % 02/13/2025 2:08 AM [facility] RDW-STDEV 44.5 37.1 - 48.7 fL 02/13/2025 2:08 AM [facility] PLATELETS 248 140 - 350 K/uL 02/13/2025 2:08 AM [facility] MPV 11.4 9.3 - 12.4 fL 02/13/2025 2:08 AM TUFTING MACHINE FIXER [facility] NEUTROPHILS 91 % 02/13/2025 2:08 AM TUFTING MACHINE FIXER [facility] LYMPHOCYTES 4 % 02/13/2025 2:08 AM TUFTING MACHINE FIXER [facility] MONOCYTES 6 % 02/13/2025 2:08 AM TUFTING MACHINE FIXER [facility] EOSINOPHILS 0 % 02/13/2025 2:08 AM TUFTING MACHINE FIXER [facility] BASOPHILS 0 % 02/13/2025 2:08 AM TUFTING MACHINE FIXER [facility] IMMATURE GRANULOCYTES 0 % 02/13/2025 2:08 AM TUFTING MACHINE FIXER [facility] NEUTROPHIL ABSOLUTE 12.92(H) 1.90 - 7.00 K/uL 02/13/2025 2:08 AM TUFTING MACHINE FIXER [facility] LYMPHOCYTE ABSOLUTE 0.51(L) 0.70 - 4.50 K/uL 02/13/2025 2:08 AM TUFTING MACHINE FIXER [facility] MONOCYTE ABSOLUTE 0.79 0.10 - 1.30 K/uL 02/13/2025 2:08 AM TUFTING MACHINE FIXER [facility] EOSINOPHIL ABSOLUTE 0.00 0.00 - 0.70 K/uL 02/13/2025 2:08 AM TUFTING MACHINE FIXER [facility] BASOPHILS ABSOLUTE 0.02 0.00 - 0.20 K/uL 02/13/2025 2:08 AM TUFTING MACHINE FIXER [facility] IMMATURE GRANULOCYTES ABSOLUTE 0.05(H) 0.00 - 0.03 K/uL 02/13/2025 2:08 AM TUFTING MACHINE FIXER [facility] Blood Venipuncture / Unknown 02/13/2025 1:27 AM TUFTING MACHINE FIXER 02/13/2025 1:48 AM TUFTING MACHINE FIXER Aliya GONZALES HEMATOLOGY ORDERABLES Fin al Result [facility] CLIA# [id number] [address] [place] [address] * EKG 12-LEAD (02/12/2025 11:33 PM TUFTING MACHINE FIXER) 02/12/2025 11:3 3 PM TUFTING MACHINE FIXER Narrative INTERFACE SYSTEM - 02/13/2025 6:04 AM TUFTING MACHINE FIXER [address] [address] Test Date: 2025-02-12 Pat Name: KIA ZULETA Department: 100 Room: [facility] 1 Gender: F Scleroscope Tester: : 1950 Requested By: OMAR AVILES Order Number: [id number] Reading MD: Nazario Martinez Measurements Intervals [place] Rate: 64 P: 0 DC: 0 QRS: -43 QRSD: 105 T: 78 QT: 433 QTc: 450 Interpretive Statements NSR LEFT AXIS DEVIATION NONSPECIFIC T-WAVE ABNORMALITY Electronically Signed On 02-13-2025 6:04:13 TUFTING MACHINE FIXER by Nazario Martinez Procedure Note Nazario Martinez MD - 02/13/[address] [address] Test Date: 2025-02-12 Pat Name: KIA ZULETA Department: 100 Room: [facility] Gender: F Scleroscope Tester: : 1950 Requested By: OMAR AVILES Order Number: [id number] Reading MD: Nazario Martinez Measurements Intervals [place] Rate: 64 P: 0 DC: 0 QRS: -43 QRSD: 105 T: 78 QT: 433 QTc: 450 Interpretive Statements NSR LEFT AXIS DEVIATION NONSPECIFIC T-WAVE ABNORMALITY Electronically Signed On 02-13-2025 6:04:13 TUFTING MACHINE FIXER by Nazario Martinez us Omar Aviles MD ECG ORDERABLES Final Result INTERFACE SYSTEM Refer to clinic/hospital department * DC ANESTHESIA BLOCK PB PLACEHOLDER CHARGE (02/12/2025 4:09 PM TUFTING MACHINE FIXER) Narrative Cliff Carter DO - 02/12/2025 4:09 PM TUFTING MACHINE FIXER Cliff Carter DO 02/12/2025 4:10 PM REBECCA Block Patient location during procedure: OR Reason for block: post-op pain management Staffing Performed: Anesthesiologist (/) Authorized by: Cliff Carter DO Performed by: Cliff Carter DO Preanesthetic Checklist Completed: patient identified, IV checked, site marked, risks and benefits discussed, surgical consent, monitors and equipment checked, pre-op evaluation and timeout performed Hand hygiene performed prior to procedure Patient was prepped and draped in usual sterile fashion Mask worn Patient position: Right lateral decubitus Prep: ChloraPrep Patient monitoring: EKG, Continuous pulse oximetry, Heart rate, Non-invasive blood pressure and ETCO2 Block Region: Truncal Block Block Type: Erector Spinae Laterality: Right Injection technique: Single-shot [place] Identification: ultrasound guided Skin Infiltration: Lidocaine 2% Local injected: Bupivacaine 0.25% Total Volume Injected (mL): 30 Needle Needle type: Short-bevel Needle gauge: 22 G Needle length: 8 cm Needle localization: Ultrasound Guidance Assessment Paresthesia pain: None Heart rate change: no Slow fractionated injection: yes Narrative Injections made incrementally with aspirations every (mL): 5 Events: no block events Outcome: A full evaluation is pending Cliff Carter DO PROCEDURE/MINOR SURG ICAL ORDERABLES Final Result * PATHOLOGY (02/12/2025 2:09 PM TUFTING MACHINE FIXER) CASE REPORT Surgical Pathology Report Case: [id number] Authorizing Provider: Omar Aviles MD Collected: 02/12/2025 02:09 PM Ordering Location: [facility] Received: 02/13/2025 12:48 PM [facility] Operating Room Pathologist: Jorge Houser MD Specimens: A) - Lymph node, Level 11 Lymph Node B) - Lymph nodes, right, Level 4 Lymph Node C) - Lymph nodes, right, Lymph Node Level 10 D) - Lymph node, Level 9 lymph node E) - Lung, RUL, Right Upper Lobe 10:45 AM [facility] FINAL DIAGNOSIS A. Lymph node, right level 11, excision: - One lymph node, no tumor present (0/1). B. Lymph node, right level 4, excision: - One lymph node, no tumor present (0/1). C. Lymph node, right level 10, excision: - One lymph node, no tumor present (0/1). D. Lymph node, level 9, excision: - Fibrovascular tissue, no lymphoid tissue or tumor present. E. Lung, right lower lobe, lobectomy: - Moderately differentiated adenocarcinoma. (See microscopic description and synoptic report) - Tumor size: 1.3 cm in greatest dimension. - Pleura invasion present. - No lymphovascular invasion identified. - Resection margins: Negative for carcinoma. - One lymph node, no tumor present (0/1). - Atypical adenomatous hyperplasia. - Emphysematous changes. - Focal subpleural fibrotic nodule with calcification. 10:45 AM TUFTING MACHINE FIXER [facility] at 1045 TUFTING MACHINE FIXER GROSS DESCRIPTION The specimens are received in five containers labeled Kia Zuleta. Received in the first container, additionally labeled right level 11 lymph node is a 0.5 x 0.4 x 0.2 cm piece of sheikh martin tissue that is entirely submitted in cassette A1. Received in the second container additionally labeled right level 4 lymph node are 2 unoriented pieces of yellow-orange, lobulated adipose tissue that are 0.7 and 2 cm in greatest dimension. The fat is dissected to reveal 2 possible pink-hearn lymph nodes that are 0.3 and 0.4 cm in greatest dimension. The 2 possible lymph nodes are submitted whole in cassette B1. Received in the third container additionally labeled right lymph node level 10 is a 0.6 x 0.5 x 0.3 cm piece of pink-hearn tissue that is entirely submitted in cassette C1. Received in the fourth container additionally labeled level 9 lymph node is a 0.5 x 0.1 x 0.1 cm piece of pink-hearn tissue that is submitted whole in cassette D1. Received in the fifth container additionally labeled right upper lobe lung is a 110 g, 13 x 8 x 2.5 cm lobe of lung. The pleural surface is red, focally anthracotic, and smooth. There is an indurated puckered area on the lateral posterior aspect that is 1.3 cm in greatest dimension and inked blue. There is a more superior, separate firm nodule that is 0.2 cm in greatest dimension that is inked green. The 2 indurated areas are 3 cm apart. The hilum is sealed with hodan. There is a 8.5 cm long staple line posterior and adjacent to the hilum that extends in the superior to inferior direction. The staple line is removed and the underlying tissue inked yellow. The hodan at the hilum are removed to reveal unremarkable bronchus and vascular resection margins. There is a possible lymph node at the hilum that is 0.8 cm in greatest dimension. The lung is injected with formalin. The tissue is serially section from posterior to anterior to reveal red, slightly congested, spongy parenchyma. There is a white, indurated, unencapsulated mass beneath the puckered blue inked pleural surface that is 1.3 x 1.3 x 1.3 cm. The lesion approaches within less than 0.1 cm of the blue inked pleural surface, 2.8 cm from the nearest yellow inked staple line resection margin, and 2.8 cm from the bronchus and vascular resection margins. The green inked indurated nodule from the pleural surface is superficial and is located over a centimeter from both the yellow inked staple line margin and the hilum. No other palpable lesions or lymph nodes are identified. [employer] sections are submitted as follows: E1-en face bronchus resection margins; E2-en face vascular resection margin; E3-bisected hilar lymph node; E4-perpendicular section through closest yellow inked staple line resection margin; E5 through E9-entire mass at the site of the blue inked pleural surface; A98-bgstqw indurated nodule from the green inked pleural surface; Q37-znftrq parenchyma from the superior part of the lobe; A54-begbsy parenchyma from the inferior part of the lobe. [facility] 5 10:45 AM [facility] [employer] [facility] MICROSCOPIC DESCRIPTION The slides are labeled [id number] and Kia Zuleta. Microscopic examination substantiates the above diagnosis. Sections of right upper lobe lung show a 1.3 cm in greatest dimension adenocarcinoma. The tumor show predominantly acinar (95%) and very focal lepidic (5%) growth pattern. The tumor is involving visceral pleura. No lymphovascular invasion identified. Resection margins are negative for tumor. Special stains for elastin performed on blocks B6 and B7 are supportive of the above diagnosis. Deeper levels of blocks B6 and B7 are examined. Selected slides from this case (B6, B7 and B12) were reviewed in intradepartmental consultation. 5 10:45 AM [facility] OPERATIVE PROCEDURE 1: LUNG LOBECTOMY ROBOTIC XI THORACOSCOPIC 2: LYMPH NODE DISSECTION ROBOTIC XI 5 10:45 AM [facility] CLINICAL INFORMATION C34.91 C34.91-Adenocarcinoma of lung, stage 2, right (CMS/HCC) 5 10:45 AM [facility] SYNOPTIC REPORT LUNG LUNG - All Specimens AJCC 9 - Protocol posted: 03/22/2024 SPECIMEN Procedure: Lobectomy Specimen Laterality: Right TUMOR Tumor Focality: Single focus Tumor Site: Upper lobe of lung Tumor Size: Invasive Tumor Size: Greatest Dimension (Centimeters): 1.3 cm Total Tumor Size: Greatest Dimension (Centimeters): 1.3 cm Histologic Type: Invasive acinar adenocarcinoma Histologic Patterns: Acinar: 95 Histologic Patterns: Lepidic: 5 Histologic Grade: G2, moderately differentiated Spread Through Air Spaces (JOSE MIGUEL): Not identified Visceral Pleura Invasion: Present Direct Invasion of Other Structures: Not applicable (no other structures present) Treatment Effect: No known presurgical therapy Lymphatic and / or Vascular Invasion: Not identified MARGINS Margin Status for Invasive Tumor: All margins negative for invasive tumor Closest Margin(s) to Invasive Tumor: Bronchial Closest Margin(s) to Invasive Tumor: Vascular Closest Margin(s) to Invasive Tumor: Parenchymal Distance from Invasive Tumor to Closest Margin: 2.8 cm Margin Status for Non-Invasive Tumor: All margins negative for non-invasive tumor REGIONAL LYMPH NODES Lymph Node(s) from Prior Procedures: No known prior lymph node sampling performed Regional Lymph Node Status: : All regional lymph nodes negative for tumor Number of Lymph Nodes Examined: 4 Joseph Site(s) Examined: 4R: Lower paratracheal Joseph Site(s) Examined: 10R: Hilar Joseph Site(s) Examined: 11R: Interlobar pTNM CLASSIFICATION (AJCC Version 9) Reporting of pT, pN, and (when applicable) pM categories is based on information available to the pathologist at the time the report is issued. As per the AJCC (Chapter 1, 8th Ed.) it is the managing physician's responsibility to establish the final pathologic stage based upon all pertinent information, including but potentially not limited to this pathology report. pT Category: pT2a pN Category: pN0 ADDITIONAL FINDINGS Additional Findings: Atypical adenomatous hyperplasia Additional Findings: Emphysema 10:45 AM [facility] COMMENT Special stain, immunohistochemical, and/or in situ hybridization results are interpreted with controls that demonstrate appropriate staining reactions. Note on use of immunohistochemistry reagents and in situ hybridization probes: These tests were developed and their performance characteristics determined by [facility], Department of Laboratory Medicine. It has not [...] part or completely in the following laboratories: [facility], CLIA #[id number] [address] [place] [address] [facility], CLIA #[id number] [address] [place] [address] [facility], CLIA #[id number] [address] [place] [address] This report was created with the [employer] voice-activated dictation system. Inherent to this system is the possibility of syntax, grammar, punctuation and other errors that could impact the interpretation of the report. If there are interpretative questions about aspects of this report, please contact the performing pathologist. 10:45 AM [facility] Tissue ENTIRE LYMPH NODE / Unknown Collection / Unknown 02/12/2025 2:09 PM TUFTING MACHINE FIXER 02/13/2025 12:48 PM TUFTING MACHINE FIXER Tissue specimen (specimen) (Lymph nodes, right) Collection / Unknown 02/12/2025 2:55 PM TUFTING MACHINE FIXER 02/13/2025 12:48 PM TUFTING MACHINE FIXER Tissue specimen (specimen) (Lymph nodes, right) 02/12/2025 2:55 PM TUFTING MACHINE FIXER 02/13/2025 12:48 PM TUFTING MACHINE FIXER Tissue specimen (specimen) ENTIRE LYMPH NODE / Unknown 02/12/2025 3:06 PM TUFTING MACHINE FIXER 02/13/2025 12:48 PM TUFTING MACHINE FIXER Tissue specimen (specimen) (Lung, RUL) 02/12/2025 3:07 PM TUFTING MACHINE FIXER 02/13/2025 12:48 PM TUFTING MACHINE FIXER Omar Aviles MD PATHOLOGY/CYTOLOGY ORDERABLES Final Result Performing Organization Address City/State/[facility] Co de Phone Number [facility]# [id number] 5 [facility] [place] [address] * DC ANES INSERT CATH, ART, PERCUT, SHORTTERM (02/12/2025 1:21 PM TUFTING MACHINE FIXER) Narrative Cliff Carter DO - 02/12/2025 1:21 PM TUFTING MACHINE FIXER Cliff Carter DO 02/12/2025 1:21 PM Arterial Line Insertion Patient location during procedure: OR Staffing Performed: Anesthesiologist (/) Authorized by: Cliff Carter DO Performed by: Cliff Carter DO Indications: multiple ABGs and hemodynamic monitoring Local Anesthetic: lidocaine 2% without epinephrine Anesthetic total: 1 mL Hand hygiene performed prior to procedure Sterile Barriers: gloves, cap, mask and sterile towels Preparation: skin prepped with 2% chlorhexidine Skin prep agent dried: skin prep agent completely dried prior to procedure Patient position: flat Location: right radial Catheter type: arterial introducer Catheter size: 20 G Catheter Length (in.): 1.75 [place] Identification: palpation technique Number of attempts: 1 Successful placement: yes Assessment: blood return through port Procedure uneventful Post-procedure: dressing applied and line secured Cliff Carter DO PROCEDURE/MINOR SURG ICAL ORDERABLES Final Result * DC ANES INSERT ENDOTRACHEAL AIRWAY (02/12/2025 12:24 PM TUFTING MACHINE FIXER) Narrative Cliff Carter DO - 02/12/2025 12:24 PM TUFTING MACHINE FIXER Cliff Carter DO 02/12/2025 1:30 PM Airway Date/Time: 02/12/2025 12:24 PM Location: OR Plan: elective intubation Patient Identity Confirmed by: Verbally with patient Airway: not difficult Staffing Performed: Anesthesiologist (/) Authorized by: Cliff Carter DO Performed by: Cliff Carter DO Indications and Patient Condition: Indications for Airway Management: Anesthesia Sedation Level: general anesthesia Preoxygenated: yes Patient Position: Sniffing Mask Difficulty Assessment: 1 - vent by mask Plan to extubate at end of case: Yes Final Airway Details: Final Airway Type: Endotracheal airway ETT - double lumen left Cuffed: Yes Technique Used for Successful ETT Placement: Direct laryngoscopy Blade Type: curved blade Blade Size: 3 Insertion Site: Oral ETT Double Lumen (fr): 37 Tube secured with: Tape Placement Verified by: auscultation, bronchoscopy, end tidal CO2 and chest rise Cormack-Lehane Classification: Grade I - full view of glottis Number of Attempts at Approach: 1 Additional Procedure Information: atraumatic and dentition unchanged Cliff Carter DO PROCEDURE/MINOR SURG ICAL ORDERABLES Final Result * TYPE AND SCREEN (02/12/2025 10:23 AM TUFTING MACHINE FIXER) Only the most recent of2 resultswithin the time period is included. Pathologist [facility] ABO GROUP A 02/12/2025 12:25 PM TUFTING MACHINE FIXER [facility] RH (D) TYPE Positive 02/12/2025 12:25 PM TUFTING MACHINE FIXER [facility] ANTIBODY SCREEN Negative 02/12/2025 12:25 PM TUFTING MACHINE FIXER [facility] Blood Venipuncture / Unknown 02/12/2025 10:23 AM TUFTING MACHINE FIXER 02/12/2025 11:25 AM TUFTING MACHINE FIXER Omar Aviles MD BLOOD BANK ORDERABLES Edited R esult - Final [facility] -- [facility] CLIA# [id number] [address] [place] [address] * PREPARE RED BLOOD CELLS (02/12/2025 9:29 AM TUFTING MACHINE FIXER) Only the most recent of6 resultswithin the time period is included. COMPONENT TYPE [id number] [facility] COMPONENT IDENTIFICATION [id number] [facility] ABO A [facility] RH POS [facility] CROSSMATCH Compatible [facility] COMPONENT STATUS Returned [facility] COMPONENT EXPIRATION DATE/TIME [id number] [facility] COMPONENT CODING SYSTEM 6200 [facility] VOLUME, BLOOD PRODUCT 350 [facility] 02/12/2025 9:29 AM TUFTING MACHINE FIXER Shelley Mccormick CABLE OPERATOR LAB TRANSFUSION ORDERABLES Edit ed Result - Final [facility] -- [facility] CLIA# [id number] [address] [place] [address] * HEMOGLOBIN AND HEMATOCRIT (01/29/2025 10:23 AM CDT) HEMOGLOBIN 13.7 11.8 - 14.8 g/dL 01/29/2025 10:57 AM CDT [facility] HEMATOCRIT 40.8 35.5 - 44.0 % 01/29/2025 10:57 AM CDT [facility] Blood Venipuncture / Unknown 01/29/2025 10:23 AM CDT 01/29/2025 10:35 AM CDT Kim Wilks CABLE OPERATOR HEMATOLOGY ORDERABLES Fin al Result [facility] - [facility] CLIA# [id number] [address] [place] [address] * PTT (01/29/2025 10:23 AM CDT) PTT 29.2 24.4 - 36.4 seconds 01/29/2025 11:10 AM CDT [facility] Comment: PTT Therapeutic Range: Heparin Level PTT (seconds) <0.10 units/mL <55.8 0.10 - 0.30 units/mL 55.8 - 74.3 0.30 - 0.70 units/mL* 74.3 - 111.2* 0.70 - 1.00 units/mL 111.2 - 138.9 *corresponds to therapeutic range for unfractionated heparin Blood Venipuncture / Unknown 01/29/2025 10:23 AM CDT 01/29/2025 10:35 AM CDT Aliya GONZALES HEMATOLOGY ORDERABLES Fin al Result [facility]# [id number] [address] [place] [address] * (ABNORMAL) PROTIME-INR (01/29/2025 10:23 AM CDT) PROTIME 12.6(L) 12.7 - 15.1 Seconds 01/29/2025 11:10 AM CDT [facility] INR 1.0 0.9 - 1.1 01/29/2025 11:10 AM CDT [facility] Blood Venipuncture / Unknown 01/29/2025 10:23 AM CDT 01/29/2025 10:35 AM CDT Narrative [facility] - 01/29/2025 11:10 AM CDT INR Therapeutic Range: Adult: 2.0 - 3.0 for pulmonary embolism or prophylaxis against venous thrombosis or systemic embolization. 2.0 - 3.0 for patients with tissue heart valves. 2.5 - 3.5 for patients with mechanical heart valves or post CO. Pediatric (12 years and under): 1.5 - 3.0 Although the target range in children is not well established, INR values of 1.5 - 3.0 are recommended for most patients. Higher values have been used in children with prosthetic cardiac valves and hereditary clotting disorders. (<3 days) therapeutic ranges have not been established. Aliyaspike GONZALES HEMATOLOGY ORDERABLES Fin al Result Performing Organization Address City/State/[facility] Co de Phone Number [facility]# [id number] [address] [place] [address] from Last 3 Months Insurance [facility] [employer] Medicare Part D Advance Directives For more information, please contact: [phone] Documents on File Type Date Recorded Patient Associate [employer] Expl anation Advance Directive POA 02/16/2025 3:45 PM A dvance Directive POA * Full Code (Latest Code Status on File) Date Activated Date Inactivated Comments 02/12/2025 5:25 PM 02/15/2025 6:40 PM * Full Code Date Activated Date Inactivated Comments 02/12/2025 9:29 AM 02/12/2025 5:25 PM * Full Code Date Activated Date Inactivated Comments 01/29/2025 9:43 AM 01/29/2025 8:09 PM Care Teams [employer] Relationship Specialty Start Date End Date James Morales MD [address] [id number] PCP - General Internal Medicine 08/14/24
[2025-03-02 10:08] LABS: Hematocrit 41.3 % (37.0-47.0); Hemoglobin 13.4 g/dL (12.0-15.0); Immature Granulocyte Percent A 0.4 % (0-0.5); Lymphocytes Absolute Auto 1.20 K/mm3 (0.9-3.2); Mean Corpuscular HGB Conc 32.4 g/dl (32-36); Mean Corpuscular Hemoglobin 30.8 pg (26-34); Mean Corpuscular Volume 94.9 fl (80-100); Nucleated Red Blood Cells Absolute Auto 0.000 K/mm3 (0.0-0.012); Nucleated Red Blood Cells Perc 0.0 % (0.0-0.2); Platelet Count Result 366 k/mm3 (150-375); Red Blood Count 4.35 M/mm3 (4.2-5.4); White Blood Count 5.5 K/mm3 (4.5-10.0)
[2025-03-02 10:17] LABS: Alanine Aminotransferase 97 U/L (6-35); Albumin Level 3.6 g/dL (3.5-5.1); Alkaline Phosphatase 310 U/L (38-126); Anion Gap 8 mmol/L (4-12); Aspartate Amino Transferase 44 U/L (14-36); Bilirubin,Total 0.3 mg/dL (0.2-1.3); Blood Urea Nitrogen 16 mg/dL (7-17); Calcium 9.2 mg/dL (8.4-10.2); Carbon Dioxide 26 mmol/L (22-30); Chloride 106 mmol/L (98-107); Cholesterol 195 mg/dL (0-200); Estimated Glomerular Filt Rate > 60; Glucose 98 mg/dL (65-110); HDL Direct 47 mg/dL; Sodium 140 mmol/L (137-145); Total Protein 6.4 g/dL (6.3-8.2); Triglycerides 133 mg/dL (<150)
[2025-03-02 10:28] LABS: Potassium 3.7 mmol/L (3.4-5.0)
[2025-03-02 10:53] LABS: Thyroid Stimulating Hormone 0.267 uIU/mL (0.465-4.680)
== END 2025-03-02 08:30 | disposition home or self-care (01) ==
LOC: ANHLAB 08:30
PROVIDERS: PCP Emergency Medicine; Visit Provider Emergency Medicine
DX: E78.5 Hyperlipidemia, unspecified (principal); R53.83 Other fatigue; E55.9 Vitamin D deficiency, unspecified; I10 Essential (primary) hypertension
CPT/HCPCS: 36415; 80053; 80061; 82306; 84443; 85025